=== PATIENT | male | born 1935 | race Caucasian/White ===

== ENCOUNTER → 2017-02-16 | Outpatient (CLI) | payer MEDICARE ==
[2017-02-16 09:07] LABS: ALT 27 U/L (21-72); AST 25 U/L (17-59); Cholesterol 114 mg/dL (<200); HDL Cholesterol 35 mg/dL (40-60); Triglycerides 132 mg/dL (<150)
== END | disposition home or self-care (01) ==
LOC: LABWHC1 08:25
PROVIDERS: ATTEND Internal Medicine Cardiovascular Disease
DX: E78.2 Mixed hyperlipidemia (principal)
CPT/HCPCS: 36415; 80061; 84450; 84460

== ENCOUNTER 2017-02-27 01:43 | Inpatient (IN) | payer MEDICARE, OTHER ==
[2017-02-27] MEDS ORDERED: NITROGLYCERIN OINT 1 INCH/GM PACKET TOPICAL STA (01:54)
--- NOTE | 2017-02-27 01:58 | ED ---
General Adult HPI - General Stated complaint: Chest Pain Time Seen by Provider: 02/27/17 01:45 Source: RN notes reviewed - History of Present Illness Initial comments: This is an 81-year-old male with past medical history significant for coronary artery disease. Patient states his stent placed. Patient comes in today complaining of left-sided chest pain which she states is similar to the chest pain he had prior to his heart attack. Patient states he also has high cholesterol. Patient states this pain started approximate one hour prior to arrival. Patient states there is no radiation the pain the pain is however constant. Patient denies any diaphoretic episodes. Patient denies any shortness of breath or difficulty breathing. Patient denies any nausea. Patient states he took aspirin at home but did not take any nitroglycerin. Patient states he also has an irregular heartbeat and he is on eliquis. Patient denies any abdominal pain patient denies any vomiting or diarrhea. Patient denies any recent fever chills or cough. Patient denies headache patient denies numbness weakness. Patient denies any lightheadedness dizziness or near syncopal episode. - Related Data Home Medications Medication Instructions Recorded Confirmed Apixaban [Eliquis] 2.5 mg PO DAILY 02/27/17 02/27/17 Gabapentin [Neurontin] 300 mg PO DAILY 02/27/17 02/27/17 Naproxen Sodium [Aleve] 220 mg PO DAILY 02/27/17 02/27/17 Simvastatin [Zocor] 20 mg PO HS 02/27/17 02/27/17 Allergies Allergy/AdvReac Type Severity Reaction Status Date / Time No Known Allergies Allergy Verified 02/27/17 02:01 Review of Systems ROS Statement: Those systems with pertinent positive or pertinent negative responses have been documented in the HPI. ROS Other: All systems not noted in ROS Statement are negative. General Exam - General Exam Comments Initial Comments: GENERAL: Patient is well-developed and well-nourished. Patient is nontoxic and well- hydrated and is in mild distress. ENT: Neck is soft and supple. No significant lymphadenopathy is noted. Oropharynx is clear. Moist mucous membranes. Neck has full range of motion without eliciting any pain. EYES: The sclera were anicteric and conjunctiva were pink and moist. Extraocular movements were intact and pupils were equal round and reactive to light. Eyelids were unremarkable. PULMONARY: Unlabored respirations. Good breath sounds bilaterally. No audible rales rhonchi or wheezing was noted. CARDIOVASCULAR: There is a regular rate and rhythm without any murmurs gallops or rubs. ABDOMEN: Soft and nontender with normal bowel sounds. No palpable organomegaly was noted. There is no palpable pulsatile mass. SKIN: Skin is clear with no lesions or rashes and otherwise unremarkable. NEUROLOGIC: Patient is alert and oriented x3. Cranial nerves II through XII are grossly intact. Motor and sensory are also intact. Normal speech, volume and content. Symmetrical smile. MUSCULOSKELETAL: Normal extremities with adequate strength and full range of motion. No lower extremity swelling or edema. No calf tenderness. LYMPHATICS: No significant lymphadenopathy is noted PSYCHIATRIC: Normal psychiatric evaluation. Course Vital Signs 02/27/17 01:45 Temperature 96.7 F L Pulse Rate 73 Respiratory 20 Rate Blood Pressure 211/97 O2 Sat by Pulse 96 Oximetry Medical Decision Making - Medical Decision Making EKG shows atrial fibrillation at 69 bpm QRS is 80 QT interval 372 QTC is 398. Patient's EKG shows no ST segment elevation or depression. Chest x-ray shows no acute abnormality. I went back into reevaluate the patient he was chest pain-free at this time. I spoke with Dr. Saurav Mg agreed to admit the patient. I wrote admitting orders I counseled cardiology. - Lab Data Result diagrams: 02/27/17 02:07 02/27/17 02:07 Lab Results 02/27/17 02/27/17 02/27/17 Range/Units 02:07 02:07 02:07 WBC 8.0 (3.8-10.6) k/uL RBC 4.63 (4.30-5.90) m/uL Hgb 13.9 (13.0-17.5) gm/dL Hct 42.8 (39.0-53.0) % MCV 92.5 (80.0-100.0) fL MCH 30.0 (25.0-35.0) pg MCHC 32.4 (31.0-37.0) g/dL RDW 13.6 (11.5-15.5) % Plt Count 191 (150-450) k/uL Neutrophils % 64 % Lymphocytes % 25 % Monocytes % 5 % Eosinophils % 3 % Basophils % 1 % Neutrophils # 5.1 (1.3-7.7) k/uL Lymphocytes # 2.0 (1.0-4.8) k/uL Monocytes # 0.4 (0-1.0) k/uL Eosinophils # 0.2 (0-0.7) k/uL Basophils # 0.1 (0-0.2) k/uL PT (9.0-12.0) sec INR (<1.1) APTT (22.0-30.0) sec Sodium 141 (137-145) mmol/L Potassium 4.1 (3.5-5.1) mmol/L Chloride 105 (98-107) mmol/L Carbon Dioxide 28 (22-30) mmol/L Anion Gap 8 mmol/L BUN 23 H (9-20) mg/dL Creatinine 1.00 (0.66-1.25) mg/dL Est GFR (MDRD) Af Amer >60 (>60 ml/min/1.73 sqM) Est GFR (MDRD) Non-Af >60 (>60 ml/min/1.73 sqM) Glucose 104 H (74-99) mg/dL Calcium 9.4 (8.4-10.2) mg/dL Magnesium 2.0 (1.6-2.3) mg/dL Total Bilirubin 0.4 (0.2-1.3) mg/dL AST 21 (17-59) U/L ALT 29 (21-72) U/L Alkaline Phosphatase 59 (38-126) U/L Total Creatine Kinase 90 (55-170) U/L CK-MB (CK-2) 1.3 (0.0-2.4) ng/mL CK-MB (CK-2) Rel Index 1.4 Troponin I <0.012 (0.000-0.034) ng/mL Total Protein 6.4 (6.3-8.2) g/dL Albumin 3.5 (3.5-5.0) g/dL 02/27/17 Range/Units 02:07 WBC (3.8-10.6) k/uL RBC (4.30-5.90) m/uL Hgb (13.0-17.5) gm/dL Hct (39.0-53.0) % MCV (80.0-100.0) fL MCH (25.0-35.0) pg MCHC (31.0-37.0) g/dL RDW (11.5-15.5) % Plt Count (150-450) k/uL Neutrophils % % Lymphocytes % % Monocytes % % Eosinophils % % Basophils % % Neutrophils # (1.3-7.7) k/uL Lymphocytes # (1.0-4.8) k/uL Monocytes # (0-1.0) k/uL Eosinophils # (0-0.7) k/uL Basophils # (0-0.2) k/uL PT 10.6 (9.0-12.0) sec INR 1.1 (<1.1) APTT 24.2 (22.0-30.0) sec Sodium (137-145) mmol/L Potassium (3.5-5.1) mmol/L Chloride (98-107) mmol/L Carbon Dioxide (22-30) mmol/L Anion Gap mmol/L BUN (9-20) mg/dL Creatinine (0.66-1.25) mg/dL Est GFR (MDRD) Af Amer (>60 ml/min/1.73 sqM) Est GFR (MDRD) Non-Af (>60 ml/min/1.73 sqM) Glucose (74-99) mg/dL Calcium (8.4-10.2) mg/dL Magnesium (1.6-2.3) mg/dL Total Bilirubin (0.2-1.3) mg/dL AST (17-59) U/L ALT (21-72) U/L Alkaline Phosphatase (38-126) U/L Total Creatine Kinase (55-170) U/L CK-MB (CK-2) (0.0-2.4) ng/mL CK-MB (CK-2) Rel Index Troponin I (0.000-0.034) ng/mL Total Protein (6.3-8.2) g/dL Albumin (3.5-5.0) g/dL Disposition Clinical Impression: Unstable angina pectoris Disposition: ADMITTED IP TO [facility] Time of Disposition: 03:19
[2017-02-27 02:37] LABS: INR 1.1 (<1.1); Partial Thromboplastin Time 24.2 sec (22.0-30.0); Prothrombin Time 10.6 sec (9.0-12.0)
[2017-02-27 02:39] LABS: ALT 29 U/L (21-72); AST 21 U/L (17-59); Alkaline Phosphatase 59 U/L (38-126); Anion Gap 8 mmol/L; Blood Urea Nitrogen 23 mg/dL (9-20); Calcium 9.4 mg/dL (8.4-10.2); Carbon Dioxide 28 mmol/L (22-30); Chloride 105 mmol/L (98-107); Glucose 104 mg/dL (74-99); Non-African American GFR(MDRD) >60 (>60 ml/min/1.73 sqM); Potassium 4.1 mmol/L (3.5-5.1); Sodium 141 mmol/L (137-145); Total Bilirubin 0.4 mg/dL (0.2-1.3); Total Protein 6.4 g/dL (6.3-8.2)
[2017-02-27 02:41] LABS: Basophils # (A) 0.1 k/uL (0-0.2); Basophils % (A) 1 %; CH 30.4; CHCM 33.1; Eosinophils # (A) 0.2 k/uL (0-0.7); Eosinophils % (A) 3 %; HCT 42.8 % (39.0-53.0); HDW 2.51; HGB 13.9 gm/dL (13.0-17.5); Luc # (Auto) 0.16; Luc % (Auto) 2; Lymphocytes % (A) 25 %; MCHC 32.4 g/dL (31.0-37.0); MCV 92.5 fL (80.0-100.0); Mean Platelet Volume 7.7; Monocytes # (A) 0.4 k/uL (0-1.0); Monocytes % (A) 5 %; Neutrophils # (A) 5.1 k/uL (1.3-7.7); Neutrophils % (A) 64 %; RBC 4.63 m/uL (4.30-5.90); RDW 13.6 % (11.5-15.5); WBC (Perox) 7.73
[2017-02-27 02:51] LABS: Creatine Kinase 90 U/L (55-170)
[2017-02-27 03:04] LABS: Creatine Kinase MB 1.3 ng/mL (0.0-2.4); Troponin I <0.012 ng/mL (0.000-0.034)
[2017-02-27] MEDS ORDERED: NITROGLYCERIN SL TABS 0.4 MG TAB SUBLINGUAL PRN (03:19)
--- NOTE | 2017-02-27 03:35 | XR ---
EXAM: XR Chest, 2 Views CLINICAL HISTORY: Chest Pain TECHNIQUE: Frontal and lateral views of the chest. COMPARISON: No relevant prior studies available. FINDINGS/IMPRESSION: Enlarged cardiac silhouette with central vascular congestion. Tortuous/ectatic thoracic aorta. If there is concern for dissection, correlate with CTA. Mild atelectasis vs infiltrate in lower lungs. No effusions. Critical Value Communications 02/27/17 03:40 Verify Receipt Verified receipt with ER Lab Animal Technologistchristoph Stovall who verified received by Dr. Ge on 02/27 03:39 (-04:00)
[2017-02-27 04:43] VITALS: BMI 36.2
[2017-02-27 08:10] LABS: Creatine Kinase MB 1.2 ng/mL (0.0-2.4); Troponin I 0.012 ng/mL (0.000-0.034)
[2017-02-27] MEDS ORDERED: APIXABAN 2.5 MG TABLET PO SCH (09:00)
[2017-02-27] MEDS ORDERED: ALPRAZolam 0.25 MG TAB PO PRN (09:15)
[2017-02-27] MEDS ORDERED: SODIUM CHLORIDE 0.9% 1,000 ML in EMPTY BAG 1 BAG IV ONE (09:15)
[2017-02-27] MEDS ORDERED: ALPRAZolam 0.5 MG TAB PO PRN (09:15)
--- NOTE | 2017-02-27 09:22 | P.CRDCN ---
History of Present Illness Consult date: 02/27/17 History of present illness: This is a 81-year-old gentleman with history of previous ischemic heart disease and myocardial infarction involving the inferior wall. Patient also has ischemic cardiomyopathy with an ejection fraction about 40%. He had a stress test in the August 2016 which at that time showed fixed defect in inferior wall without any reversible ischemia. Patient came to the hospital with complaints of chest pain which was similar to the pain he had when he had a heart attack. The pain was moaning and of the left breast area lasting about a half hour. Patient was given to the hospital by his . He was treated with nitro patch with relief of pain. Patient had mild pain this morning also. He claimed the pain was about 8 on a scale of 1-10. Nose is and nausea vomiting or sweating. His EKG did not reveal any acute changes. His and chronic atrial fibrillation. His cardiac enzymes are negative. Patient is on an eliquis. We discussed the options of doing a repeat stress test versus cardiac catheterization. Given his previous history and cardiomyopathy, after discussing with Dr. Starks, we decided to proceed with cardiac cath for definitive diagnosis. This is being scheduled for tomorrow Review of Systems REVIEW OF SYSTEMS: CONSTITUTIONAL:. Patient is doing well. No complaints of fever or chills EYES: Denies diplopia, blurring of vision EARS, NOSE, MOUTH, THROAT: Denies headaches, denies sore throat. CARDIOVASCULAR: As per HPI RESPIRATORY: Denies shortness of breath, denies cough. GASTROINTESTINAL: Denies change in appetite, denies abdominal pain, denies diarrhea GENITOURINARY: Denies hematuria, denies infections. MUSKULOSKELETAL: Denies pain, denies swelling. Denies any cramps or claudication INTEGUMENTARY: Denies rash, denies eczema. NEUROLOGICAL: Denies focal weakness, or visual disturbance. Denies any dizziness or syncope PSYCHIATRIC: Denies anxiety, denies depression. HEMATOLOGIC/LYMPHATIC: Denies any bleeding, denies enlarged lymph nodes. Past Medical History Past Medical History: Atrial Fibrillation, Hyperlipidemia, Hypertension, Myocardial Infarction ([place]) Additional Past Medical History / Comment(s): pt states he did have an episode at the [facility] where he had "something going on" with his heart, does not know what it was Last Myocardial Infarction Date:: 2011 History of Any Multi-Drug Resistant Organisms: None Reported Past Surgical History: Heart Catheterization With Stent, Hernia Repair, Orthopedic Surgery Additional Past Surgical History / Comment(s): left knee, left ankle, right shoulder, pt thinks 1 or 2 stents not sure in what vessel Past Anesthesia/Blood Transfusion Reactions: No Reported Reaction Date of Last Stent Placement:: 2011 Past Psychological History: No Psychological Hx Reported Smoking Status: Never smoker Past Alcohol Use History: Occasional Past Drug Use History: None Reported - Past Family History Father Family Medical History: Cancer Medications and Allergies Home Medications Medication Instructions Recorded Confirmed Type Apixaban [Eliquis] 2.5 mg PO DAILY 02/27/17 02/27/17 History Aspirin EC [Ecotrin Low Dose] 81 mg PO DAILY 02/27/17 02/27/17 History Gabapentin [Neurontin] 300 mg PO DAILY 02/27/17 02/27/17 History Multivitamin [Men's Multi-Vitamin] 1 tab PO DAILY 02/27/17 02/27/17 History Naproxen Sodium [Aleve] 220 mg PO DAILY 02/27/17 02/27/17 History Simvastatin [Zocor] 20 mg PO HS 02/27/17 02/27/17 History Allergies Allergy/AdvReac Type Severity Reaction Status Date / Time No Known Allergies Allergy Verified 02/27/17 07:56 Physical Exam Vitals: Vital Signs Temp Pulse Pulse Resp BP Pulse Ox 02/27/17 08:00 16 02/27/17 07:23 97.9 F 51 L 16 122/75 98 02/27/17 04:00 97.7 F 63 16 166/82 95 Intake and Output 02/26/17 02/27/17 02/27/17 22:59 06:59 14:59 Other: Voiding Method Toilet Toilet # Voids 2 Weight 117.934 kg GENERAL EXAM: Patient is alert and oriented and doesn't appear to be in any acute distress HEENT: Normocephalic. Normal reaction of pupils, equal size, normal range of extraocular motion. No erythema or exudates in the throat. NECK: No masses, no nuchal rigidity. CHEST: No chest wall deformity. LUNGS: Equal air entry with no crackles or wheeze. HEART: Irregular heart sounds ABDOMEN: No hepatosplenomegaly, normal bowel sounds, no guarding or rigidity. SKIN: No rashes CENTRAL NERVOUS SYSTEM: No focal deficits. EXTREMITIES: No cyanosis, clubbing or edema. Results 02/27/17 02:07 02/27/17 02:07 Cardiac Enzymes 02/27/17 Range/Units 06:53 CK-MB (CK-2) 1.2 (0.0-2.4) ng/mL Troponin I 0.012 (0.000-0.034) ng/mL Current Medications Generic Name Dose Route Start Last Admin Trade Name Freq PRN Reason Stop Dose Admin Aspirin 81 mg 02/27/17 09:00 Aspirin PO DAILY [facility] Atorvastatin Calcium 10 mg 02/27/17 21:00 Lipitor PO HS JANNETH Gabapentin 300 mg 02/27/17 09:00 Neurontin PO DAILY [facility] Multivitamins 1 each 02/27/17 09:00 Theragran PO DAILY [facility] Nitroglycerin 0.4 mg 02/27/17 03:19 Nitrostat SUBLINGUAL Q5M PRN Chest Pain Intake and Output 02/26/17 02/27/17 02/27/17 22:59 06:59 14:59 Other: Voiding Method Toilet Toilet # Voids 2 Weight 117.934 kg EKG Interpretations (text) Atrial fibrillation with controlled ventricular response Assessment and Plan (1) Unstable angina pectoris Status: Acute (2) Old inferior wall myocardial infarction Status: Acute (3) Ischemic cardiomyopathy Status: Acute Plan: We will hold his anticoagulation therapy. Patient is being scheduled for cardiac cath tomorrow with Dr. Starks. We'll obtain an echocardiogram. Further recommendations depend upon clinical course.
[2017-02-27] MEDS: MULTIVITAMINS, THERA 1 EACH TAB PO SCH (09:33)
[2017-02-27] MEDS: ASPIRIN 81 MG CHEW PO SCH (09:33)
[2017-02-27] MEDS: GABAPENTIN 300 MG CAP PO SCH (09:33)
[2017-02-27] MEDS: ACETAMINOPHEN TAB 500 MG TAB PO PRN (14:43)
[2017-02-27 15:31] LABS: Creatine Kinase 66 U/L (55-170)
[2017-02-27 15:39] LABS: Troponin I <0.012 ng/mL (0.000-0.034)
[2017-02-27] MEDS: ATORVASTATIN 10 MG TAB PO SCH (20:14)
[2017-02-28] MEDS: ACETAMINOPHEN TAB 500 MG TAB PO PRN (00:23)
[2017-02-28 02:36] LABS: Cholesterol 112 mg/dL (<200); HDL Cholesterol 31 mg/dL (40-60); Triglycerides 139 mg/dL (<150)
[2017-02-28] MEDS: ASPIRIN 81 MG CHEW PO SCH (06:33)
[2017-02-28] MEDS: ATORVASTATIN 10 MG TAB PO SCH (06:33)
[2017-02-28] MEDS: GABAPENTIN 300 MG CAP PO SCH (06:34)
[2017-02-28 07:02] LABS: Glucose,Whole Blood 115 mg/dL (75-99)
[2017-02-28] MEDS ORDERED: ASPIRIN 325 MG TAB PO SCH (09:00)
--- NOTE | 2017-02-28 10:50 | HP ---
DATE OF ADMISSION: CHIEF COMPLAINT: Chest pain. HISTORY OF PRESENT ILLNESS: This gentleman presents to the emergency room with complaints of pain for about 5 hours duration. The pain was intermittently. The pain would last about an hour or so then we would get some gradual relief and the pain would recur. The patient's pain is on the left precordial area, nonradiating, not associated with any shortness of breath, cough, congestion, fever, chills, nausea, vomiting or heartburn. The patient feels this pain was similar to the one he had when he had his heart attack. The patient during the day had been working on his garden bent over. The patient prior to coming to the hospital had taken an aspirin without much relief. He did not take any other medications. Patient's symptoms gradually resolved in the emergency room. The patient's EKG did not reveal any acute changes. It does show atrial fibrillation, that is chronic. The patient's cardiac enzymes were negative. The patient is admitted to the hospital for further evaluation. Chest x-ray suggested possible atelectasis cannot rule out infiltrate or CHF. The patient clinically has no symptoms of CHF or any pneumonia. It did show a tortuous ectatic thoracic aorta. Past medical history is significant for obesity, coronary artery disease, hypertension, degenerative arthritis, history of BPH. No history of any lung disease, liver disease, kidney disease, ulcers, TB, hepatitis. No history of rheumatic fever, myocardial infarction, CVA. PAST SURGICAL HISTORY: Significant for knee arthroplasty. PERSONAL HISTORY: Nonsmoker. Alcohol none. ALLERGIES: None known. Medications at home include: 1. Zocor 20 mg daily. 2. Naproxen p.r.n. 3. Gabapentin 300 mg daily at bedtime. 4. Aspirin 81 mg daily. 5. Eliquis 2.5 mg daily. 6. Multivitamin daily. SOCIAL HISTORY: Patient is and lives with her spouse. FAMILY MEDICAL HISTORY: Noncontributory for cardiac. Father did have a malignancy, type unknown. REVIEW OF SYSTEMS: NEURO: Denies any headaches, dizziness. No double vision, blurred vision. PSYCH: No anxiety or depression. CARDIAC: Denies chest pain at present. Present on admission chest pain. No shortness of breath, cough, hemoptysis. GI: No nausea, vomiting, abdominal pain, diarrhea, constipation, hematochezia, or melena. : No symptoms of dysuria, hematuria, urgency, frequency. EXTREMITIES: No pain or edema. CONSTITUTIONAL: No fever or chills. PHYSICAL EXAMINATION: Pleasant gentleman, moderately obese in no distress. Vital signs reveal temperature 97.9, pulse 51, respirations 16, blood pressure 122/75, pulse ox of 98% on room air. HEENT: Normocephalic. Neck no JVD. Pupils that are reactive. Oral cavity is moist. NECK: Supple. No JVD. No carotid bruits. CHEST EXAMINATION: Clear to auscultation and percussion. CARDIAC: Normal S1 and S2. No gallops, murmurs, rubs. Irregular rhythm. ABDOMEN: Soft. Bowel sounds present. Abdomen protuberant. Extremities reveal no edema. No tenderness. Good pulses both upper and lower extremities. NEUROLOGIC: Awake, alert, oriented x3 with well coordinated movements. Laboratory assessment is an EKG which reveals chronic atrial fibrillation, poor R wave progression. Cardiac enzymes are negative x3. Patient's CBC is normal. Renal functions normal. Hepatic function is normal. Chest x-ray as mentioned above. ASSESSMENT: 1. Chest pain, atypical. 2. Known history of coronary artery disease. 3. Hypertension. 4. Obesity. PLAN: The patient at present is stable. Continue present medical regimen. The patient has been evaluated by Cardiology who felt that the patient should have cardiac catheterization. The patient will be scheduled according to their recommendations.
[2017-02-28] MEDS ORDERED: LIDOCAINE 2% INJ 20 MG/ML (20 ML MDV) ONE (12:12)
[2017-02-28] MEDS ORDERED: MIDAZOLAM 2 MG/2 ML VIAL ONE (12:14)
[2017-02-28] MEDS ORDERED: diphenhydrAMINE 50 MG/ML 1 ML VIAL ONE (12:14)
[2017-02-28] MEDS ORDERED: MIDAZOLAM 2 MG/2 ML VIAL IV ONE (12:15)
[2017-02-28] MEDS ORDERED: diphenhydrAMINE 50 MG/ML 1 ML VIAL IVP ONE (12:15)
[2017-02-28] MEDS ORDERED: LIDOCAINE 2% INJ 20 MG/ML SQ ONE (12:20)
[2017-02-28] MEDS ORDERED: IV FLUID CONTINUATION 1,000 ML IV ONE (12:22)
[2017-02-28] MEDS ORDERED: NITROGLYCERIN OINT 4 INCH/4 GM TUBE TOPICAL ONE (12:34)
[2017-02-28] MEDS ORDERED: ENALAPRILAT 1.25 MG/ML 1 ML VIAL IVP ONE (12:34)
[2017-02-28] MEDS ORDERED: IOHEXOL 350 MG/ML 125ML BOTTLE INJ ONE (12:41)
[2017-02-28] MEDS ORDERED: RX INFO: IV CONTRAST WAS GIVEN 1 EACH MISC MISCELLANE PRN (12:41)
--- NOTE | 2017-02-28 13:10 | CC ---
DATE OF SERVICE: INDICATION: Unstable angina in a patient with known coronary artery disease, status post prior angioplasty of proximal LAD. PROCEDURE NOTE: After obtaining informed consent, left heart catheterization and coronary angiogram and the femoral angiogram was performed via the right femoral artery using standard Maribell catheters. Patient tolerated the procedure well without any obvious immediate complications. A femoral angiogram was performed and Angio-Seal was deployed for hemostasis. FINDINGS: 1. HEMODYNAMICS: Left ventricular end-diastolic pressure is 16 mm. There is no significant gradient across the aortic valve. 2. LEFT VENTRICULOGRAM: Left ventriculogram is not performed. 3. ANGIOGRAPHIC DATA: LEFT MAIN CORONARY ARTERY: Left main coronary artery is a normal size vessel and is free of stenosis. Divides into left anterior descending coronary artery and circumflex coronary artery. Circumflex coronary artery and its branches are free of significant stenosis. LAD was stented in the proximal segment. There is a long area that was stented. There is mild in-stent restenosis, but there are no focal hemodynamically significant lesions. RIGHT CORONARY ARTERY: Right coronary artery is a large dominant vessel that shows a mild atherosclerotic plaque in the distal part. CONCLUSIONS: Patent stent within the proximal left anterior descending coronary artery. PLAN: Patient's chest discomfort is probably noncardiac in origin and the management is going to be with continued medical therapy. Blood pressures are poorly controlled. I am going to add lisinopril 10 mg daily and Norvasc 10 mg daily. Patient was on a Eliquis for atrial fibrillation. This will be resumed tonight.
[2017-02-28] MEDS: amLODIPine 10 MG TAB PO SCH (13:18)
[2017-02-28] MEDS: KETOROLAC 30 MG/ML 1 ML VIAL IVP SCH ×3 (13:18→17:28)
[2017-02-28] MEDS: LISINOPRIL 10 MG TAB PO SCH (13:18)
[2017-02-28] MEDS: MULTIVITAMINS, THERA 1 EACH TAB PO SCH (14:00)
[2017-02-28] MEDS: SODIUM CHLORIDE 0.9% 1,000 ML IV SCH (17:32)
[2017-02-28] MEDS: APIXABAN 2.5 MG TABLET PO SCH (19:46)
--- NOTE | 2017-02-28 22:53 | PN ---
CHIEF COMPLAINT: Re-evaluation. HISTORY OF PRESENT ILLNESS: This gentleman was admitted to the hospital with complaints of chest pain. The patient during the night yesterday had constant pain in the left side of his chest. The patient has some exacerbation of pain with movements. No associated nausea, vomiting, shortness of breath. Patient has been seen by Cardiology and actually has been scheduled to undergo cardiac catheterization today. REVIEW OF SYSTEMS: NEURO: Denies any headaches, dizziness. PSYCH: Some anxiety. CARDIAC: Chest pain, atypical. No associated shortness of breath, cough, hemoptysis. GI: No nausea, vomiting, abdominal pain, diarrhea. : No symptoms of dysuria, hematuria. EXTREMITIES: No pain or edema. CONSTITUTIONAL: No fever or chills. PHYSICAL EXAMINATION: Pleasant gentleman in no distress. VITAL SIGNS: Temperature 97.7, pulse 63, respirations 16, blood pressure 143/92, pulse ox 93% on room air. HEENT: Normocephalic. NECK: Supple. No JVD. Chest is clear to auscultation. CARDIAC: Normal S1, S2 with no gallops, murmurs. Irregular rhythm. ABDOMEN: Soft, protuberant. Bowel sounds active. EXTREMITIES: No edema. No tenderness. NEUROLOGIC: Awake, alert, oriented with well-coordinated movements. Skin reveals no rash. ASSESSMENT: 1. Chest pain, atypical. 2. Known coronary artery disease. 3. Chronic atrial fibrillation. 4. Obesity. 5. Hypertension. PLAN: The patient is stable. Continue present medical regimen. Patient's condition discussed with the patient. Will give the patient some Toradol for pain. The patient's pain might very well be musculoskeletal. The patient's cardiac catheterization was done and revealed open stents; no evidence of any significant disease requiring intervention. Patient to continue medical therapy for coronary atherosclerosis. The patient will be continued on present medical regimen. Potential discharge home. Patient's condition was discussed with the patient and his .
[2017-03-01] MEDS: KETOROLAC 30 MG/ML 1 ML VIAL IVP SCH ×2 (00:11→05:54)
[2017-03-01] MEDS: SODIUM CHLORIDE 0.9% 1,000 ML IV SCH (00:12)
[2017-03-01 07:30] VITALS: BP 160/83; PULSE 69; RESP 17; TEMP 98.3
[2017-03-01] MEDS: MULTIVITAMINS, THERA 1 EACH TAB PO SCH (08:19)
[2017-03-01] MEDS: ASPIRIN 81 MG CHEW PO SCH (08:19)
[2017-03-01] MEDS: GABAPENTIN 300 MG CAP PO SCH (08:19)
[2017-03-01] MEDS: amLODIPine 10 MG TAB PO SCH (08:19)
[2017-03-01] MEDS: LISINOPRIL 10 MG TAB PO SCH (08:19)
[2017-03-01] MEDS: APIXABAN 2.5 MG TABLET PO SCH (08:19)
--- NOTE | 2017-03-07 19:02 | P.DS ---
Providers Date of admission: 02/28/17 16:18 Attending physician: Curt Mg Primary care physician: Curt Mg Hospital Course: Hospital course: This 81-year-old gentleman was admitted to the hospital with chest pain. He has underlying history of coronary artery disease with a previous stent. His moderate obesity hypertension and hyperlipidemia. Patient' s symptoms were atypical. He was evaluated by the sap developer who felt the patient had some atypical features and some features which may indicate he had progression of his coronary atherosclerosis. He underwent a cardiac catheterization after noted to have negative troponins. Cardiac catheterization revealed the previous site of stent was clear some degree of atherosclerosis in other vessels. No critical blockage. Patient recommended medical therapy which would include weight loss, blood pressure control, hyperlipidemia treatment. And continued aspirin. Patient's prognosis guarded patient's condition discussed with with patient prior to discharge. It is felt the patient's chest pain was probably myofascial pain due to working with bending over. Diagnosis to include 1. Atypical chest pain 2. Known coronary atherosclerosis with a previous stent. 3. Hypertension 4. Hyperlipidemia on medical therapy 5. Obesity 6. Atrial fibrillation, chronic, rate controlled. 7. Anticoagulated status Plan - Discharge Summary New Discharge Prescriptions: Lisinopril [Zestril] 10 mg PO DAILY #90 tab Nitroglycerin Sl Tabs [Nitrostat] 0.4 mg SUBLINGUAL Q5M PRN #25 tab PRN Reason: Chest Pain Discharge Medication List Apixaban [Eliquis] 2.5 mg PO DAILY 02/27/17 [History] Aspirin EC [Ecotrin Low Dose] 81 mg PO DAILY 02/27/17 [History] Gabapentin [Neurontin] 300 mg PO DAILY 02/27/17 [History] Multivitamin [Men's Multi-Vitamin] 1 tab PO DAILY 02/27/17 [History] Simvastatin [Zocor] 20 mg PO HS 02/27/17 [History] Acetaminophen Tab [Tylenol] 1,000 mg PO Q6HR PRN #0 tab 03/01/17 [Rx] Lisinopril [Zestril] 10 mg PO DAILY #90 tab 03/01/17 [Rx] Nitroglycerin Sl Tabs [Nitrostat] 0.4 mg SUBLINGUAL Q5M PRN #25 tab 03/01/17 [Rx ] Follow up Appointment(s)/Referral(s): Curt Mg MD [Primary Care Provider] - 1-2 days Juan Starks MD [STAFF PHYSICIAN] - 03/08/17 10:15 am Patient Instructions/Handouts: Heart Catheterization (GEN) Discharge Disposition: HOME SELF-CARE
== END 2017-03-01 10:31 | disposition home or self-care (01) | DRG 287 ==
LOC: EC 01:43 → 3OBS 03:19 → OBSVTOIN 02-28 16:18
PROVIDERS: ADMIT Internal Medicine; ATTEND Internal Medicine
PROC: B2111ZZ Fluoroscopy of Multiple Coronary Arteries using Low Osmolar Contrast (ICD-10-PCS; 2017-02-28)
PROC: B41F1ZZ Fluoroscopy of Right Lower Extremity Arteries using Low Osmolar Contrast (ICD-10-PCS; 2017-02-28)
PROC: 4A023N7 Measurement of Cardiac Sampling and Pressure, Left Heart, Percutaneous Approach (ICD-10-PCS; principal; 2017-02-28 12:00)
DX: R07.89 Other chest pain (principal); I48.2 Chronic atrial fibrillation; I25.5 Ischemic cardiomyopathy; I25.10 Atherosclerotic heart disease of native coronary artery without angina pectoris; M79.1 Myalgia; E66.9 Obesity, unspecified; I10 Essential (primary) hypertension; E78.5 Hyperlipidemia, unspecified; I25.2 Old myocardial infarction; N40.0 Benign prostatic hyperplasia without lower urinary tract symptoms; M19.90 Unspecified osteoarthritis, unspecified site; Z95.5 Presence of coronary angioplasty implant and graft; Z79.01 Long term (current) use of anticoagulants; Z79.82 Long term (current) use of aspirin; Z79.899 Other long term (current) drug therapy; Z68.36 Body mass index [BMI] 36.0-36.9, adult
CPT/HCPCS: 36415; 71020; 80053; 80061; 82550; 82553; 83735; 84484; 85025; 85610; 85730; 93005; 93458; 99285

== ENCOUNTER 2018-03-02 13:11 | Emergency (ER) | payer MEDICARE, OTHER ==
[2018-03-02 13:18] VITALS: TEMP 97.3
[2018-03-02] MEDS ORDERED: MECLIZINE 12.5 MG TAB PO STA (13:33)
[2018-03-02] MEDS ORDERED: SODIUM CHLORIDE 0.9% 500 ML IV STA (13:33)
[2018-03-02] MEDS ORDERED: SODIUM CHLORIDE 0.9% 1,000 ML IV STA (13:33)
--- NOTE | 2018-03-02 13:38 | ED ---
Dizziness HPI - General Chief Complaint: Dizziness Stated Complaint: weakness Time Seen by Provider: 03/02/18 13:21 Source: patient, family, RN notes reviewed Mode of arrival: wheelchair Limitations: no limitations - History of Present Illness Initial Comments: This 82-year-old male who states she's had 3 days of intermittent episodes of dizziness. He states it can happen with upright positioning while driving. He states he's had a cold sometime last several weeks currently no earache sore throat rhinorrhea cough or phlegm production no headache loss of function to his upper or lower extremities. No palpitations. No other modifying factors. MD Complaint: dizziness, lightheadedness - Related Data Home Medications Medication Instructions Recorded Confirmed Apixaban [Eliquis] 2.5 mg PO BID 02/27/17 03/02/18 Aspirin EC [Ecotrin Low Dose] 81 mg PO DAILY 02/27/17 03/02/18 Gabapentin [Neurontin] 300 mg PO BID 02/27/17 03/02/18 Multivitamin [Men's Multi-Vitamin] 1 tab PO DAILY 02/27/17 03/02/18 Furosemide [Lasix] 20 mg PO DAILY PRN 03/02/18 03/02/18 Losartan [Cozaar] 100 mg PO DAILY 03/02/18 03/02/18 Simvastatin [Zocor] 40 mg PO HS 03/02/18 03/02/18 Previous Rx's Medication Instructions Recorded Nitroglycerin Sl Tabs [Nitrostat] 0.4 mg SUBLINGUAL Q5M PRN #25 tab 03/01/17 Meclizine [Antivert] 25 mg PO TID #20 tab 03/02/18 amLODIPine [Norvasc] 5 mg PO DAILY #14 tab 03/02/18 Allergies Allergy/AdvReac Type Severity Reaction Status Date / Time papaverine [From Pavabid] Allergy Unknown Verified 03/02/18 13:19 Review of Systems ROS Statement: Those systems with pertinent positive or pertinent negative responses have been documented in the HPI. ROS Other: All systems not noted in ROS Statement are negative. Past Medical History Past Medical History: Atrial Fibrillation, Hyperlipidemia, Hypertension, Myocardial Infarction ([place]) Additional Past Medical History / Comment(s): pt states he did have an episode at the [facility] where he had "something going on" with his heart, does not know what it was Last Myocardial Infarction Date:: 2011 History of Any Multi-Drug Resistant Organisms: None Reported Past Surgical History: Heart Catheterization With Stent, Hernia Repair, Orthopedic Surgery Additional Past Surgical History / Comment(s): left knee, left ankle, right shoulder, pt thinks 1 or 2 stents not sure in what vessel Past Anesthesia/Blood Transfusion Reactions: No Reported Reaction Date of Last Stent Placement:: 2011 Past Psychological History: No Psychological Hx Reported Smoking Status: Never smoker Past Alcohol Use History: Occasional Past Drug Use History: None Reported - Past Family History Father Family Medical History: Cancer General Exam - General Exam Comments Initial Comments: This is a well-developed well-nourished awake alert oriented times 3 male Limitations: no limitations General appearance: alert, in no apparent distress Head exam: Present: atraumatic, normocephalic, normal inspection Eye exam: Present: normal appearance, PERRL, EOMI. Absent: scleral icterus, conjunctival injection, periorbital swelling ENT exam: Present: normal exam, mucous membranes moist Neck exam: Present: normal inspection. Absent: tenderness, meningismus, lymphadenopathy Respiratory exam: Present: normal lung sounds bilaterally. Absent: respiratory distress, wheezes, rales, rhonchi, stridor Cardiovascular Exam: Present: irregular rhythm, other (Occasional extrasystoles) . Absent: systolic murmur, diastolic murmur, rubs, gallop, clicks GI/Abdominal exam: Present: soft, normal bowel sounds. Absent: distended, tenderness, guarding, rebound, rigid Extremities exam: Present: normal inspection, full ROM, normal capillary refill. Absent: tenderness, pedal edema, joint swelling, calf tenderness Back exam: Present: normal inspection Neurological exam: Present: alert, oriented X3, CN II-XII intact Psychiatric exam: Present: normal affect, normal mood Skin exam: Present: warm, dry, intact, normal color. Absent: rash Course Vital Signs 03/02/18 03/02/18 13:14 15:10 Temperature 97.3 F L Pulse Rate 70 68 Respiratory 20 16 Rate Blood Pressure 184/90 193/116 O2 Sat by Pulse 95 99 Oximetry EKG Findings - EKG Results: EKG: interpreted by ERMD (Atrial fibrillation with PVCs rate 65 QRS 86 QT since QTC of 422/438 with exodeviation poor R-wave progression.) Medical Decision Making - Medical Decision Making The patient was reevaluated several occasions he had no further dizziness after Antivert was administered was noticed blood pressure was somewhat labile is on no medication at this time to be started on Norvasc is a follow-up with his outpatient clinic and return when necessary I did recommend also he start increasing his oral fluid consumption. At the time of discharge patient is asymptomatic - Lab Data Result diagrams: 03/02/18 13:44 03/02/18 13:44 Lab Results 03/02/18 03/02/18 03/02/18 Range/Units 13:44 13:44 13:44 WBC 7.9 (3.8-10.6) k/uL RBC 5.10 (4.30-5.90) m/uL Hgb 14.9 (13.0-17.5) gm/dL Hct 45.8 (39.0-53.0) % MCV 89.9 (80.0-100.0) fL MCH 29.2 (25.0-35.0) pg MCHC 32.4 (31.0-37.0) g/dL RDW 13.6 (11.5-15.5) % Plt Count 216 (150-450) k/uL Neutrophils % 70 % Lymphocytes % 22 % Monocytes % 4 % Eosinophils % 2 % Basophils % 0 % Neutrophils # 5.5 (1.3-7.7) k/uL Lymphocytes # 1.8 (1.0-4.8) k/uL Monocytes # 0.3 (0-1.0) k/uL Eosinophils # 0.2 (0-0.7) k/uL Basophils # 0.0 (0-0.2) k/uL Sodium 143 (137-145) mmol/L Potassium 4.6 (3.5-5.1) mmol/L Chloride 104 (98-107) mmol/L Carbon Dioxide 28 (22-30) mmol/L Anion Gap 11 mmol/L BUN 24 H (9-20) mg/dL Creatinine 1.00 (0.66-1.25) mg/dL Est GFR (CKD-EPI)AfAm 81 (>60 ml/min/1.73 sqM) Est GFR (CKD-EPI)NonAf 70 (>60 ml/min/1.73 sqM) Glucose 96 (74-99) mg/dL Calcium 9.6 (8.4-10.2) mg/dL Magnesium 1.9 (1.6-2.3) mg/dL Total Bilirubin 0.3 (0.2-1.3) mg/dL AST 21 (17-59) U/L ALT 21 (21-72) U/L Alkaline Phosphatase 56 (38-126) U/L Total Creatine Kinase 73 (55-170) U/L CK-MB (CK-2) 1.5 (0.0-2.4) ng/mL CK-MB (CK-2) Rel Index 2.1 Troponin I <0.012 (0.000-0.034) ng/mL Total Protein 6.9 (6.3-8.2) g/dL Albumin 4.0 (3.5-5.0) g/dL TSH 3.330 (0.465-4.680) mIU/L - Radiology Data Radiology results: report reviewed (Imaging shows no definite acute findings.), image reviewed Disposition Clinical Impression: Benign positional vertigo, Dehydration, Hypertension Disposition: HOME SELF-CARE Condition: Good Instructions: Benign Paroxysmal Positional Vertigo (ED), Dehydration (ED), Hypotension (ED) Prescriptions: amLODIPine [Norvasc] 5 mg PO DAILY #14 tab Meclizine [Antivert] 25 mg PO TID #20 tab Is patient prescribed a controlled substance at d/c from ED?: No Referrals: [facility],Clinic [Primary Care Provider] - 1-2 days
[2018-03-02 13:57] LABS: Basophils % (A) 0 %; Eosinophils # (A) 0.2 k/uL (0-0.7); Eosinophils % (A) 2 %; HCT 45.8 % (39.0-53.0); HGB 14.9 gm/dL (13.0-17.5); Lymphocytes # (A) 1.8 k/uL (1.0-4.8); Lymphocytes % (A) 22 %; MCH 29.2 pg (25.0-35.0); MCHC 32.4 g/dL (31.0-37.0); MCV 89.9 fL (80.0-100.0); Mean Platelet Volume 8.1; Monocytes # (A) 0.3 k/uL (0-1.0); Monocytes % (A) 4 %; Neutrophils # (A) 5.5 k/uL (1.3-7.7); Neutrophils % (A) 70 %; Platelet Count 216 k/uL (150-450); RDW 13.6 % (11.5-15.5); WBC 7.9 k/uL (3.8-10.6)
[2018-03-02 14:09] LABS: Calcium 9.6 mg/dL (8.4-10.2); Magnesium 1.9 mg/dL (1.6-2.3); Potassium 4.6 mmol/L (3.5-5.1); Total Bilirubin 0.3 mg/dL (0.2-1.3); Total Protein 6.9 g/dL (6.3-8.2)
[2018-03-02 14:20] LABS: Creatine Kinase 73 U/L (55-170)
--- NOTE | 2018-03-02 14:24 | CT ---
EXAMINATION TYPE: CT brain wo con DATE OF EXAM: 03/02/2018 COMPARISON: 10/06/2009 HISTORY: 82-year-old male with pain and complains of high blood pressure. TECHNIQUE: Examination was done in axial plane without intravenous contrast. Coronal and sagittal r econstructions performed. CT DLP: 1079 mGycm Automated exposure control for dose reduction was used. FINDINGS: There is no evidence of acute intracranial hemorrhage, acute ischemic changes, mass, mass-effect, or extra-axial fluid collection. There is no effacement of cerebral sulci or basal subarachnoid cister ns. There is no hydrocephalus. There is no midline shift. Yoder-white matter distinction is preserv ed. Partially empty sella. Moderate patchy white matter hypodensities in both cerebral hemispheres. Paranasal sinuses and mastoid air cells well pneumatized. Visualized orbits and globes are intact. IMPRESSION: No acute intracranial abnormality seen. Moderate patchy changes of chronic small vessel ischemic dise ase.
--- NOTE | 2018-03-02 14:25 | XR ---
EXAMINATION TYPE: XR chest 2V DATE OF EXAM: 03/02/2018 COMPARISON: 02/27/2017 HISTORY: 82-year-old male with cough TECHNIQUE: Frontal and lateral views FINDINGS: Exam limited by patient body habitus and AP portable technique. The left base is underpenetrated and not optimally assessed. Heart appears borderline enlarged. Mild elongation of the thoracic aorta. Pul monary vasculature within normal limits. When correlating with the lateral view, no consolidation or pleural effusion seen. IMPRESSION: Limited portable exam. Left base underpenetrated and not well assessed. The heart is borderline enla rged. No definite acute process.
[2018-03-02 14:33] LABS: Creatine Kinase MB 1.5 ng/mL (0.0-2.4); Troponin I <0.012 ng/mL (0.000-0.034)
[2018-03-02 15:12] VITALS: PULSE 68; RESP 16
[2018-03-02] MEDS ORDERED: amLODIPine 5 MG TAB PO STA (15:12)
[2018-03-02] MEDS ORDERED: hydrALAZINE HCL 20 MG/ML 1 ML VIAL IVP STA (16:11)
[2018-03-02 16:31] VITALS: BP 177/100
== END 2018-03-02 16:25 | disposition home or self-care (01) ==
LOC: EC 13:11
DX: E86.0 Dehydration (principal); I10 Essential (primary) hypertension; H81.10 Benign paroxysmal vertigo, unspecified ear; I48.91 Unspecified atrial fibrillation; E78.5 Hyperlipidemia, unspecified; I25.2 Old myocardial infarction; Z88.8 Allergy status to other drugs, medicaments and biological substances; Z79.02 Long term (current) use of antithrombotics/antiplatelets; Z79.82 Long term (current) use of aspirin; Z79.899 Other long term (current) drug therapy
CPT/HCPCS: 99284; 96374; 96361 ×2; 36415; 93005; 80053; 84443; 82550; 82553; 83735; 84484; 85025; 71046; 70450; J0360

== ENCOUNTER → 2018-11-23 | Outpatient (CLI) | payer OTHER ==
[2018-11-23 17:03] LABS: LDL Cholesterol,Calculated 66.4 mg/dL (0.0-131.0); VLDL Calculation 31.6 mg/dL (5.00-40.00)
== END | disposition home or self-care (01) ==
LOC: LABWHC1 08:59
PROVIDERS: ATTEND Internal Medicine Cardiovascular Disease
DX: E78.2 Mixed hyperlipidemia (principal)
CPT/HCPCS: 36415; 80061; 84450; 84460

== ENCOUNTER → 2019-05-28 | Outpatient (CLI) | payer OTHER ==
--- NOTE | 2019-05-28 16:01 | MR ---
EXAMINATION TYPE: MR cervical spine wo con DATE OF EXAM: 05/28/2019 COMPARISON: None HISTORY: Neck pain x 2 mos, BUE weakness TECHNIQUE: Multiplanar, multisequence images of the cervical spine were acquired. FINDINGS: There is a T2 hyperintense and T1 hyperintense vertebral body hemangioma at T1. Multilevel small anterior osteophytes are seen. Multilevel disc desiccation is also noted. Cervical spinal cord signal is within normal limits. Vertebral body heights and alignment are maintained. C2-C3: There is a left paracentral disc osteophyte complex. No spinal canal stenosis nor neural tayler inal narrowing. C3-C4: Uncovertebral hypertrophy and facet arthropathy creating moderate left and severe right neural foraminal narrowing. Broad-based disc bulge minimally narrows the ventral subarachnoid space without spinal canal stenosis. C4-C5: There is a small central disc herniation, uncovertebral hypertrophy, and facet arthropathy cre ating moderate bilateral neural foraminal narrowing. This slightly narrows the ventral subarachnoid s pace without significant spinal canal stenosis. C5-C6: There is a broad-based disc bulge and uncovertebral hypertrophy as well as facet arthropathy c reating severe right and moderate to severe left neural foraminal narrowing and mild spinal canal bhavin nosis. C6-C7: There is a small central disc osteophyte complex and uncovertebral hypertrophy creating mild b ilateral neural foraminal narrowing without spinal canal stenosis. C7-T1: Disc desiccation without spinal canal stenosis nor neural foraminal narrowing. IMPRESSION: 1. Small central disc herniation at C4-C5 without spinal canal stenosis. 2. Broad-based disc bulge at C5-C6 contributing to mild spinal canal stenosis. 3. Multilevel degenerative disc disease of the cervical spine creating variable degrees of neural for aminal narrowing most severe on the right at C3-C4 and C5-C6 as well as on the left at C5-C6. Detail at each level as discussed above.
== END | disposition home or self-care (01) ==
LOC: RADMRIMAIN 14:37
PROVIDERS: ATTEND Physician Assistant Medical
DX: M48.02 Spinal stenosis, cervical region (principal); M50.221 Other cervical disc displacement at C4-C5 level; M50.30 Other cervical disc degeneration, unspecified cervical region
CPT/HCPCS: 72141

== ENCOUNTER 2019-10-06 14:51 | Emergency (ER) | payer OTHER, MEDICARE ==
[2019-10-06 14:59] VITALS: TEMP 98.6
--- NOTE | 2019-10-06 15:29 | ED ---
General Adult HPI - General Chief complaint: Recheck/Abnormal Lab/Rx Stated complaint: Possible blood clot in lung, sent by [facility] Time Seen by Provider: 10/06/19 15:00 Source: patient Mode of arrival: ambulatory Limitations: no limitations - History of Present Illness Initial comments: Dictation was produced using [employer] dictation software. please excuse any grammatical, word or spelling errors. Chief Complaint: 83-year-old male presents with dyspnea and coughing. History of Present Illness: Is an 83-year-old male presents today with dyspnea and coughing. Patient has been having symptoms for the last 72 hours. Patient has history of atrial fibrillation. He is on anticoagulation medications. Patient went to the [facility] urgent care for evaluation. He had an x-ray performed and was redirected to the emergency department for further evaluation. She has been having cough productive of green sputum for the last 48 hours. Been feeling generally weak and short of breath. The ROS documented in this emergency department record has been reviewed and confirmed by me. Those systems with pertinent positive or negative responses have been documented in the HPI. All other systems are other negative and/or noncontributory. PHYSICAL EXAM: General Impression: Alert and oriented x3, not in acute distress HEENT: Normocephalic atraumatic, extra-ocular movements intact, pupils equal and reactive to light bilaterally, mucous membranes moist. Cardiovascular: Heart regular rate and rhythm, S1&S2 audible, no murmurs, rubs or gallops Chest: Lungs clear to auscultation bilaterally, no rhonchi, no wheeze, no rales Abdomen: Bowel sounds present, abdomen soft, non-tender, non-distended, no organomegaly Musculoskeletal: Pulses present and equal in all extremities, no peripheral edema Motor: no focal deficits noted Neurological: CN II-XII grossly intact, no focal motor or sensory deficits noted Skin: Intact with no visualized rashes Psych: Normal affect and mood ED course: 83-year-old male presents with dyspnea. Signs upon arrival are within acceptable limits. Patient's well-appearing. EKG was obtained showing atrial fibrillation. Patient is a history of this. He is on and a correlation medications. Laboratory evaluation obtained. Leukocytosis of 17.9. Coag panel unremarkable. Metabolic panel shows no acute processes. Influenza test is negative. Chest x-ray shows she is well-appearing at bedside. He is coughing. Options discussed with patient. He states he feels well to go home and will return if his symptoms acutely worsen otherwise he reports he will follow-up with his [facility] doctor. Patient given ceftriaxone IV push. Prescription provided for Zithromax pack. EKG interpretation: Ventricular rate 81, A. fib, QS 92, QTc 439. No [place] prolongation, no QTC prolongation, no ST or T-wave changes noted. EKG compared to 02/22/2018 showing no changes. Overall, this EKG is unremarkable - Related Data Home Medications Medication Instructions Recorded Confirmed Apixaban [Eliquis] 2.5 mg PO BID 02/27/17 10/06/19 Aspirin EC [Ecotrin Low Dose] 81 mg PO DAILY 02/27/17 10/06/19 Simvastatin [Zocor] 20 mg PO HS 03/02/18 10/06/19 Acetaminophen Tab [Tylenol Tab] 500 mg PO Q6H 10/06/19 10/06/19 Losartan [Cozaar] 25 mg PO BID 10/06/19 10/06/19 Previous Rx's Medication Instructions Recorded Nitroglycerin Sl Tabs [Nitrostat] 0.4 mg SUBLINGUAL Q5M PRN #25 tab 03/01/17 Azithromycin [Zithromax Z-pack] 0 mg PO DIRECTED #6 tab 10/06/19 Allergies Allergy/AdvReac Type Severity Reaction Status Date / Time papaverine [From Pavabid] Allergy Unknown Verified 10/06/19 15:52 Review of Systems ROS Statement: Those systems with pertinent positive or pertinent negative responses have been documented in the HPI. ROS Other: All systems not noted in ROS Statement are negative. Past Medical History Past Medical History: Atrial Fibrillation, Hyperlipidemia, Hypertension, Myocardial Infarction ([place]) Additional Past Medical History / Comment(s): pt states he did have an episode at [facility] where he had "something going on" with his heart, does not know what it was Last Myocardial Infarction Date:: 2011 History of Any Multi-Drug Resistant Organisms: None Reported Past Surgical History: Heart Catheterization With Stent, Hernia Repair, Orthopedic Surgery Additional Past Surgical History / Comment(s): left knee, left ankle, right shoulder, pt thinks 1 or 2 stents not sure in what vessel Past Anesthesia/Blood Transfusion Reactions: No Reported Reaction Date of Last Stent Placement:: 2011 Past Psychological History: No Psychological Hx Reported Smoking Status: Never smoker Past Alcohol Use History: Occasional Past Drug Use History: None Reported - Past Family History Father Family Medical History: Cancer General Exam Limitations: no limitations Course Vital Signs 10/06/19 14:55 Temperature 98.6 F Pulse Rate 72 Respiratory 20 Rate Blood Pressure 161/73 O2 Sat by Pulse 95 Oximetry Medical Decision Making - Lab Data Result diagrams: 10/06/19 15:10 10/06/19 15:10 Lab Results 10/06/19 10/06/19 10/06/19 Range/Units 15:10 15:10 15:10 WBC 17.9 H (3.8-10.6) k/uL RBC 4.82 (4.30-5.90) m/uL Hgb 15.0 (13.0-17.5) gm/dL Hct 44.9 (39.0-53.0) % MCV 93.3 (80.0-100.0) fL MCH 31.2 (25.0-35.0) pg MCHC 33.4 (31.0-37.0) g/dL RDW 12.9 (11.5-15.5) % Plt Count 198 (150-450) k/uL Neutrophils % 88 % Lymphocytes % 8 % Monocytes % 3 % Eosinophils % 0 % Basophils % 0 % Neutrophils # 15.7 H (1.3-7.7) k/uL Lymphocytes # 1.4 (1.0-4.8) k/uL Monocytes # 0.6 (0-1.0) k/uL Eosinophils # 0.1 (0-0.7) k/uL Basophils # 0.0 (0-0.2) k/uL PT 10.5 (9.0-12.0) sec INR 1.0 (<1.2) APTT 25.2 (22.0-30.0) sec Sodium 139 (137-145) mmol/L Potassium 4.2 (3.5-5.1) mmol/L Chloride 102 (98-107) mmol/L Carbon Dioxide 26 (22-30) mmol/L Anion Gap 11 mmol/L BUN 23 H (9-20) mg/dL Creatinine 1.00 (0.66-1.25) mg/dL Est GFR (CKD-EPI)AfAm 81 (>60 ml/min/1.73 sqM) Est GFR (CKD-EPI)NonAf 70 (>60 ml/min/1.73 sqM) Glucose 108 H (74-99) mg/dL Calcium 9.6 (8.4-10.2) mg/dL Magnesium 1.8 (1.6-2.3) mg/dL Troponin I (0.000-0.034) ng/mL Influenza Type A RNA (Not Detectd) Influenza Type B (PCR) (Not Detectd) 10/06/19 10/06/19 Range/Units 15:10 15:45 WBC (3.8-10.6) k/uL RBC (4.30-5.90) m/uL Hgb (13.0-17.5) gm/dL Hct (39.0-53.0) % MCV (80.0-100.0) fL MCH (25.0-35.0) pg MCHC (31.0-37.0) g/dL RDW (11.5-15.5) % Plt Count (150-450) k/uL Neutrophils % % Lymphocytes % % Monocytes % % Eosinophils % % Basophils % % Neutrophils # (1.3-7.7) k/uL Lymphocytes # (1.0-4.8) k/uL Monocytes # (0-1.0) k/uL Eosinophils # (0-0.7) k/uL Basophils # (0-0.2) k/uL PT (9.0-12.0) sec INR (<1.2) APTT (22.0-30.0) sec Sodium (137-145) mmol/L Potassium (3.5-5.1) mmol/L Chloride (98-107) mmol/L Carbon Dioxide (22-30) mmol/L Anion Gap mmol/L BUN (9-20) mg/dL Creatinine (0.66-1.25) mg/dL Est GFR (CKD-EPI)AfAm (>60 ml/min/1.73 sqM) Est GFR (CKD-EPI)NonAf (>60 ml/min/1.73 sqM) Glucose (74-99) mg/dL Calcium (8.4-10.2) mg/dL Magnesium (1.6-2.3) mg/dL Troponin I <0.012 (0.000-0.034) ng/mL Influenza Type A RNA Not Detected (Not Detectd) Influenza Type B (PCR) Not Detected (Not Detectd) Disposition Clinical Impression: Cough Disposition: HOME SELF-CARE Condition: Good Instructions (If sedation given, give patient instructions): Bacterial Pneumonia (ED) Prescriptions: Azithromycin [Zithromax Z-pack] 0 mg PO DIRECTED #6 tab Is patient prescribed a controlled substance at d/c from ED?: No Referrals: [facility],Clinic [Primary Care Provider] - 1-2 days Time of Disposition: 16:40
--- NOTE | 2019-10-06 15:35 | XR ---
EXAMINATION TYPE: XR chest 2V DATE OF EXAM: 10/06/2019 COMPARISON: Chest x-ray March 02, 2018. HISTORY: Shortness of breath. TECHNIQUE: Frontal and lateral views of the chest are obtained. FINDINGS: There is bibasilar opacities. The cardiac silhouette size is enlarged with atheroscleroti c and ectatic aorta. The osseous structures are intact. IMPRESSION: Cardiomegaly with bibasilar acute infiltrate and/or atelectasis seen.
[2019-10-06 15:40] LABS: Basophils % (A) 0 %; Eosinophils # (A) 0.1 k/uL (0-0.7); Eosinophils % (A) 0 %; HCT 44.9 % (39.0-53.0); Lymphocytes # (A) 1.4 k/uL (1.0-4.8); Lymphocytes % (A) 8 %; MCH 31.2 pg (25.0-35.0); MCHC 33.4 g/dL (31.0-37.0); MCV 93.3 fL (80.0-100.0); Mean Platelet Volume 7.2; Monocytes # (A) 0.6 k/uL (0-1.0); Monocytes % (A) 3 %; Neutrophils # (A) 15.7 k/uL (1.3-7.7); Neutrophils % (A) 88 %; Platelet Count 198 k/uL (150-450); RBC 4.82 m/uL (4.30-5.90); RDW 12.9 % (11.5-15.5); WBC 17.9 k/uL (3.8-10.6)
[2019-10-06 15:46] LABS: Partial Thromboplastin Time 25.2 sec (22.0-30.0); Prothrombin Time 10.5 sec (9.0-12.0)
[2019-10-06 15:47] LABS: Calcium 9.6 mg/dL (8.4-10.2); Magnesium 1.8 mg/dL (1.6-2.3); Potassium 4.2 mmol/L (3.5-5.1)
[2019-10-06] MEDS ORDERED: cefTRIAXone IN SWFI 1,000 MG/10 ML SYRINGE IVP STA (16:32)
[2019-10-06 16:50] VITALS: BP 143/92; PULSE 75; RESP 18
== END 2019-10-06 16:57 | disposition home or self-care (01) ==
LOC: EC 14:51
DX: R05 Cough (principal); R06.00 Dyspnea, unspecified; I48.91 Unspecified atrial fibrillation; E78.5 Hyperlipidemia, unspecified; I10 Essential (primary) hypertension; I25.2 Old myocardial infarction; Z79.01 Long term (current) use of anticoagulants; Z79.82 Long term (current) use of aspirin; Z79.899 Other long term (current) drug therapy; Z88.8 Allergy status to other drugs, medicaments and biological substances; Z95.5 Presence of coronary angioplasty implant and graft
CPT/HCPCS: 36415; 93005; 80048; 83735; 84484; 85025; 85610; 85730; 87502; 71046; 99285; 96374; J0696

== ENCOUNTER → 2020-04-15 | Outpatient (CLI) | payer OTHER, MEDICARE ==
[2020-04-15 16:44] LABS: Chol/HDL Ratio 3.14; LDL Cholesterol,Calculated 64.6 mg/dL (0.0-131.0); VLDL Calculation 14.4 mg/dL (5.00-40.00)
== END | disposition home or self-care (01) ==
LOC: LABWHC1 08:12
PROVIDERS: ATTEND Internal Medicine Cardiovascular Disease
DX: E78.2 Mixed hyperlipidemia (principal)
CPT/HCPCS: 36415; 80061; 84450; 84460

== ENCOUNTER → 2020-09-28 | Outpatient (CLI) | payer MEDICARE, OTHER | END | disposition home or self-care (01) | LOC: LABWHC1 16:08 | PROVIDERS: ATTEND Internal Medicine | DX: Z03.818 Encounter for observation for suspected exposure to other biological agents ruled out (principal) | CPT/HCPCS: U0003; C9803 ==

== ENCOUNTER → 2021-10-14 | Outpatient (CLI) | payer OTHER ==
--- NOTE | 2021-10-14 17:20 | MR ---
EXAMINATION TYPE: MR lumbar spine wo con DATE OF EXAM: 10/14/2021 COMPARISON: None HISTORY: Low back pain CONTRAST: 0 mL intravenous Gadavist. TECHNIQUE: Multiplanar, multisequence images of the lumbar spine were acquired. FINDINGS: L5-S1: There is a grade 1 spondylolisthesis of L5 anteriorly on S1. Disc uncovering is present with m ild anterior thecal sac flattening. Facet hypertrophy and ligamentum flavum laxity of posterior later al thecal sac compression. No stenosis is evident. Lateral canal narrowing however may be present. L4-L5: There is loss of disc height at this level. No focal disc herniation or significant disc bulge is evident. Facet degenerative changes present. There is moderate right foraminal narrowing. L3-L4: Disc space narrowing is present. Residual disc bulge has mild anterior thecal sac compression. Facet hypertrophy and ligamentum flavum laxity has posterior lateral thecal sac compression, slightl y greater on the left. No spinal canal stenosis is present. There is moderate right and mild left for aminal stenosis. L2-L3: No significant disc bulge or disc herniation. No spinal canal stenosis. No foraminal stenosi s. Mild left facet hypertrophy is present. L1-L2: No significant disc bulge or disc herniation. No spinal canal stenosis. No foraminal stenosi s. T12-L1: No significant disc bulge or disc herniation. No spinal canal stenosis. No foraminal stenos is. IMPRESSION: 1. Grade 1 spondylolisthesis of L5 anteriorly on S1. 2. Mild lateral canal narrowing due to facet hypertrophy and ligament flavum laxity may be present L5 -S1. 3. Mild residual disc bulging L4-5 with mild anterior thecal sac flattening. No stenosis is evident. 4. Foraminal narrowing right L4-5 and right L3-4
== END | disposition home or self-care (01) ==
LOC: RADMRIMAIN 10:55
PROVIDERS: ATTEND Physician Assistant Medical
DX: M43.17 Spondylolisthesis, lumbosacral region (principal); M48.07 Spinal stenosis, lumbosacral region; M51.26 Other intervertebral disc displacement, lumbar region; M99.73 Connective tissue and disc stenosis of intervertebral foramina of lumbar region
CPT/HCPCS: 72148

== ENCOUNTER → 2022-06-05 | Outpatient (CLI) | payer OTHER ==
[2022-06-05 12:06] VITALS: BP 146/96; PULSE 71; RESP 18; TEMP 98.1
--- NOTE | 2022-06-05 15:01 | P.PAINPG ---
PQRS Measure Charge Sheet Comment: HISTORY OF PRESENT ILLNESS: 86 yr old male w at side as a referral from the [facility] in [place] presents today w severe and chronic LBP secondary to spondylolisthesis, neuroforaminal stenoses and facet arthropathy for evaluation. Patient states his pain level is 8 out of 10 in intensity, constant, burning in character for the last 2 years. Pain is worse in the morning and with weightbearing activity. Pain originates in the lower aspect of his lumbar spine with radiation to the right hip, right knee and right toes. Pain is alleviated with medications (Tylenol), topicals CBD oil, Lidoderm patches, ice, heat, physical therapy for 12 weeks which ended in April 2022, use of a cane for ambulation, home stretching regimen, massage therapy integrated with PT, sitting with his right lower extremity extended, repositioning and rest. PMH: Atrial Fibrillation, Hyperlipidemia, HTN, [place] (2011), OA, CAD, BPH PSH: Cardiac Stent (2011), Hernia Repair, L Knee Surgery, R Shoulder Surgery, L Ankle Surgery SH: Current tobacco user, Rare ETOH use, No illicit drug use. and lives w spouse. FH: Father- [place]. All: Papaverine Meds: See list REVIEW OF ORGAN SYSTEMS: CONSTITUTIONAL: No fevers or chills. No recent weight loss. NEUROLOGICAL: + numbness and tingling along the distal extremities. No seizure disorders or headaches. MUSCULOSKELETAL: + pain PSYCHIATRIC: Denies current depression or suicidal thoughts. Physical Examinations : Constitutional : Cooperative , not in acute distress . Neurologic : Cranial nerve II to XII intact. No focal neurological deficits. Psychiatric : alert & oriented x 3. Matching mood & appropriate affect. Judgment & insight intact. Musculoskeletal : Cervical Spine Motor strength in the deltoid and biceps: Normal right side. Normal Left side Motor strength biceps and the wrist extensors: Normal right side . Normal left side Motor strength in the triceps muscle: Normal right side. Normal left side Deep tendon reflexes: Normal at the biceps. Normal at Brachioradialis. Normal at triceps Vertebral body tenderness to deep palpation over Cervical facet loading test: positive bilaterally Spurling test: positive bilaterally Neck distraction test: positive bilaterally Ami sign: positive bilaterally Lumbar spine Motor strength lower extremities ,thigh and legs 5/5 Right side , 5/5 Left side Deep tendon reflexes : Normal Knee Jerk. Normal Ankle Jerk Vertebral body tenderness over L4 Lumbar facet Loading Test: positive Right / positive Left Range of motion of the lumbar spine Flexion 30 degrees, extension 10 degrees Straight Leg Raise test: Left/ Right positive at 30 degree Zack test: positive right / positive left. Severe tenderness over the Sacroiliac joint on the Right / Left sides Gaenslen test: positive bilaterally Seated flexion test: positive bilaterally. Sacral spine : Severe tenderness over the Sacroiliac joint: right side / left side Range of motion: Flexion of the lumbar spine <60 degrees Range of motion: Extension of the lumbar spine <20 degrees Gaenslen's Test positive Mickey's Test positive Zack test: positive right side / left side Thigh Thrust Test Sacral Thrust Test Imaging: MRI without contrast of the lumbar spine from 10/14/21 reviewed Assessment/ Plan : Lumbar DDD Recommendation of right paramedian L4-L5 NORMAN. May need a series of injections, up to 3 within a six-month timeframe, for optimal pain relief. Risks, benefits of procedure discussed and patient verbalized understanding. Admits to aspirin or anti- coagulant use and denies a medical history of diabetes. Protocol for discontinuation/ continuation of medications stone procedure discussed. Need medical clearance from his auto tester, Dr. Carrion. All questions answered. I have spent greater than 30 minutes on patient care today. Dr Cardoso was available by phone for the evaluation of this patient. The time was used to review the medical records including relevant urine studies and Prescription history (MAPs), review of the available imaging, evaluation and examination of the patient, coordination of care with the medical staff and if applicable referring physicians, as well as creation of the medical record PQRS Narrative: Smoking Status Never smoker Home Medications: Ambulatory Orders Apixaban [Eliquis] 2.5 mg PO BID 02/27/17 Aspirin EC [Ecotrin Low Dose] 81 mg PO DAILY 02/27/17 Nitroglycerin Sl Tabs [Nitrostat] 0.4 mg SUBLINGUAL Q5M PRN #25 tab 03/01/17 Simvastatin [Zocor] 20 mg PO HS 03/02/18 Acetaminophen Tab [Tylenol Tab] 500 mg PO Q6H 10/06/19 Azithromycin [Zithromax Z-pack] 0 mg PO DIRECTED #6 tab 10/06/19 Losartan [Cozaar] 25 mg PO BID 10/06/19 Controlled Substance Measures - Controlled Substance Measures Is patient prescribed a controlled substance at discharge?: No
== END ==
LOC: PNWHC3 09:42
PROVIDERS: ATTEND Specialist
DX: M51.36 Other intervertebral disc degeneration, lumbar region (principal); I48.91 Unspecified atrial fibrillation; E78.5 Hyperlipidemia, unspecified; I10 Essential (primary) hypertension; I25.2 Old myocardial infarction; M19.90 Unspecified osteoarthritis, unspecified site; I25.10 Atherosclerotic heart disease of native coronary artery without angina pectoris; Z79.82 Long term (current) use of aspirin; Z88.8 Allergy status to other drugs, medicaments and biological substances
CPT/HCPCS: 99211

== ENCOUNTER → 2022-07-06 | Day surgery (SDC) | payer OTHER ==
[2022-07-05 12:58] VITALS: BMI 34.8
[~2022-07-06] MED LIST: IOPAMIDOL M200 10 ML VIAL ONE; IV FLUID CONTINUATION 1,000 ML IV ONE; LACTATED RINGERS 1,000 ML IV SCH; LIDOCAINE 1% (10MG/ML) FOR IV START INTRADERMA PRN; MIDAZOLAM 2 MG/2 ML VIAL ONE; TRIAMCINOLONE ACETONIDE 40 MG/ML 1 ML VIAL ONE; fentaNYL (PF) 50 MCG/ML 2 ML AMP ONE
[2022-07-06 08:47] VITALS: TEMP 97
--- NOTE | 2022-07-06 10:08 | P.PCN ---
Date of Procedure: 07/06/22 Description of Procedure: Procedure: 1. L4-L5 Epidural steroid injection under fluoroscopic guidance # 1/ , 2. Lumbar epidurogram PREOPERATIVE DIAGNOSIS: Lumbar degenerative disc disease, and Lumbar radiculopathy. POSTOPERATIVE DIAGNOSIS: Lumbar degenerative disc disease, and Lumbar radiculopathy. SURGEON: Kelsie Chris ANESTHESIA: Local with 1% lidocaine, and IV sedation as per anesthesia record Sedation supervision start time : 0 955 sedation Supervision end time: 1005 EBL: None. Specimen removed: None Fluoroscopic image: saved to electronic medical records PROCEDURE INDICATION: The patient had history of Lumbar degenerative disc disease and Lumbar radiculopathy. Failed to conservative therapy. Presented for epidural steroid injection. PROCEDURE DESCRIPTION: The patient was seen and identified in the preoperative area. Risks, benefits, complications, and alternatives were discussed with the patient. The patient agreed to proceed with the procedure and signed the consent. IV was started, and vital signs were stable. Patient was taken to the procedure area, and time out was completed. The patient was placed in the prone position on procedure table and a pillow was placed under the abdomen to reduce lumbar lordosis. The lumbosacral area was prepped and draped in the usual sterile fashion. Critical pause was taken. Vital signs were closely monitored during the procedure. Using anterior-posterior fluoroscopy, the L4-L5 interlaminar space was i dentified, and skin and deeper tissues were localized with 1% lidocaine. Using anterior-posterior fluoroscopy, lateral fluoroscopy, and [id number] technique, a 20 gauge 3.5 Tuohy epidural needle entered the epidural space. After negative aspiration of CSF and blood with no paresthesias, 1 ml of [id number] contrast dye was injected and an excellent epidurogram was seen. Again after negative aspiration of CSF and blood with no paresthesias, 8mL of block solution was injected into the epidural space. Block solution contained 40 mg of Depo-Medrol, and 7 mL of preservative-free normal saline. Needle was withdrawn intact, skin was cleansed, and bandages were applied. COMPLICATIONS: None. DISPOSITION / PLANS: The patient was placed in a supine position and transferred to the recovery area in a stable condition for observation. Patient was discharged from the recovery room after meeting discharge criteria. Home discharge instructions given to the patient by the staff. The patient was reexamined prior to discharge. The patient will schedule a follow up in the clinic in 4 weeks.
[2022-07-06 10:18] VITALS: RESP 15
--- NOTE | 2022-07-06 10:20 | FL ---
EXAMINATION TYPE: FL guided pain mgmt statistic DATE OF EXAM: 07/06/2022 CLINICAL HISTORY: Low back pain. TECHNIQUE: Fluoroscopy. COMPARISON: None. FINDINGS: Fluoroscopic guidance was provided during pain relief procedure performed by Dr. Cardoso . A total of 12 seconds of fluoroscopic time was utilized during the procedure and two spot images a re acquired. Images acquired shows needle localization at the posterior L4 level. IMPRESSION: As Above.
[2022-07-06 10:30] VITALS: BP 154/84; PULSE 62
== END ==
LOC: ORPAIN 08:01
DX: M51.16 Intervertebral disc disorders with radiculopathy, lumbar region (principal); M54.50 Low back pain, unspecified; I10 Essential (primary) hypertension; I25.10 Atherosclerotic heart disease of native coronary artery without angina pectoris; E78.00 Pure hypercholesterolemia, unspecified; I21.9 Acute myocardial infarction, unspecified; N40.0 Benign prostatic hyperplasia without lower urinary tract symptoms; Z88.6 Allergy status to analgesic agent
CPT/HCPCS: 62323; J2250; J3301; J3010; Q9966; 99152

== ENCOUNTER → 2022-08-03 | Outpatient (CLI) | payer OTHER ==
[2022-08-03 09:25] VITALS: BP 171/84; PULSE 68; RESP 16; TEMP 98.5
--- NOTE | 2022-08-03 13:38 | P.PAINPG ---
PQRS Measure Charge Sheet Comment: A 86 yr old male w at side with a history of severe and chronic low back pain secondary to lumbar degenerative disc diseases and lumbar spondylosis with facet arthropathy without myelopathy presents today for evaluation s/p NORMAN L4-5 #1/3. Pt states he experienced 50% pain relief x 4 wks s/p procedure. Pain level is currently at 5/10 in intensity, constant, localized in the R lumbar spine, dull/ achy in character w shooting towards the R hip. Pain is provoked by twisting/lifting. Pain is alleviated with PT integrated w massage in [id number], home exercise regimen, meds (Tylenol OTC, Lidoderm), +CBD oil, use of cane for ambulation, sitting, repoisitoning and rest. Interventional pain procedures completed include NORMAN L4-5 x1. Patient is currently on Tylenol OTC, Lidoderm Patient denies any side effects of the medication(s), denies excessive drowsiness or sleepiness, denies suicidal ideation and reports that the current pain medication is helping to control the pain and improve activities of daily living. Patient denies any motor or sensory deficits. Patient denies any fever or night sweats, denies any change in the bowel movements or urination. Physical Examination: -Constitutional: Cooperative. Not in acute distress . - Neurologic: Cranial nerve II to XII intact. No focal neurological deficits. - Psychatric: Alert & oriented x 3. Matching mood & appropriate affect. Judgment and insight intact. - Musculoskeletal: Cervical spine: Muscle bulk/ tone/ strength in the bilateral upper extremities normal Vertebral body tenderness to palpation over Spurling test positive Distraction test positive Facet loading test positive Thoracic spine Muscle bulk / tone/ strength in the bilateral paraspinal muscles normal Vertebral body tender to palpation over Facet loading test positive Lumbar spine: Motor bulk/ tone/ strength lower extremities , thigh and legs : 5/5 Deep tendon reflexes : Normal Knee Jerk. Normal Ankle Jerk . Vertebral body tenderness to palpation over L4 Lumbar Facet Loading Test positive Straight Leg Raise: positive at 30 degrees right side/ left side Gaenslen's Test positive Sacral spine : Severe tenderness over the Sacroiliac joint: right side / left side Range of motion: Flexion of the lumbar spine <60 degrees Range of motion: Extension of the lumbar spine <20 degrees Gaenslen's Test positive Mickey's Test positive Zack test: positive right side / left side Thigh Thrust Test Sacral Thrust Test Assessment and plan: Chronic low back pain secondary to lumbar degenerative disc disease , lumbar spondylosis with facet arthropathy without myelopathy Recommendation of NORMAN L4-5 #2. May need a series of injections, up to 3 within a 6 mo period, for opitmal pain relief. Risks, benefits of procedure discussed and pt verbalized understanding. Admits to anticoagulant use or medical history of diabetes. Protocol for discontinuation/ continuation of meds stone procedure discussed. All patient questions answered I have spent less than 30 minutes on patient care today. Dr Cardoso was available by phone for the evaluation of this patient. The time was used to review the medical records including relevant urine studies and Prescription history (MAPs), review of the available imaging, evaluation and examination of the patient, coordination of care with the medical staff and if applicable referring physicians, as well as creation of the medical record PQRS Narrative: Smoking Status Never smoker Hx Alcohol Use (MH) Yes: OCCASIONAL Home Medications: Ambulatory Orders Apixaban [Eliquis] 2.5 mg PO BID 02/27/17 Aspirin EC [Ecotrin Low Dose] 81 mg PO DAILY 02/27/17 Nitroglycerin Sl Tabs [Nitrostat] 0.4 mg SUBLINGUAL Q5M PRN #25 tab 03/01/17 Simvastatin [Zocor] 20 mg PO HS 03/02/18 Acetaminophen Tab [Tylenol Tab] 500 mg PO Q6H 10/06/19 Losartan [Cozaar] 25 mg PO BID 10/06/19 Multivitamins, Thera [Multivitamin (formulary)] 1 tab PO DAILY 07/05/22 Tamsulosin [Flomax] 0.4 mg PO DAILY 07/05/22 Controlled Substance Measures - Controlled Substance Measures Is patient prescribed a controlled substance at discharge?: No
== END ==
LOC: PNWHC3 08:50
PROVIDERS: ATTEND Specialist
DX: M47.816 Spondylosis without myelopathy or radiculopathy, lumbar region (principal); M51.36 Other intervertebral disc degeneration, lumbar region; G89.29 Other chronic pain; E11.9 Type 2 diabetes mellitus without complications; Z88.6 Allergy status to analgesic agent; Z79.01 Long term (current) use of anticoagulants
CPT/HCPCS: 99211

== ENCOUNTER → 2022-08-28 | Outpatient (CLI) | payer OTHER ==
--- NOTE | 2022-08-29 08:59 | US ---
EXAMINATION TYPE: US arterial LE single level DATE OF EXAM: 08/28/2022 1:47 PM CLINICAL HISTORY: I73.89 Other specified peripheral vascular disease. Bilateral foot numbness and col dness. Multiphasic waveforms in the popliteal arteries. Ankle-Brachial Indices: Right: 1.2 Left: 1.2 Toe Brachial Indices: Right: 0.67 Left: 0.71 IMPRESSION: Normal ankle-brachial indices
== END | disposition home or self-care (01) ==
LOC: RADUSWWP 12:59
PROVIDERS: ATTEND Family Medicine
DX: I73.89 Other specified peripheral vascular diseases (principal)
CPT/HCPCS: 93922

== ENCOUNTER 2022-09-07 11:15 | Day surgery (SDC) | payer OTHER ==
[2022-09-05 10:14] VITALS: BMI 34.8
[~2022-09-07 11:15] MED LIST changes: -IOPAMIDOL M200 10 ML VIAL ONE; -IV FLUID CONTINUATION 1,000 ML IV ONE; -MIDAZOLAM 2 MG/2 ML VIAL ONE; -TRIAMCINOLONE ACETONIDE 40 MG/ML 1 ML VIAL ONE; -fentaNYL (PF) 50 MCG/ML 2 ML AMP ONE
[2022-09-07 12:28] VITALS: TEMP 97.3
[2022-09-07] MEDS ORDERED: methylPREDNISolone ACETATE 40 MG/ML 1 ML VIAL ONE (12:49)
[2022-09-07] MEDS ORDERED: MIDAZOLAM 2 MG/2 ML VIAL ONE (12:49)
[2022-09-07] MEDS ORDERED: IOPAMIDOL M200 10 ML VIAL ONE (12:49)
[2022-09-07] MEDS ORDERED: IV FLUID CONTINUATION 1,000 ML IV ONE (13:05)
--- NOTE | 2022-09-07 13:05 | P.PCN ---
Date of Procedure: 09/07/22 Procedure(s) Performed: PREOPERATIVE DIAGNOSIS: 1- Lumbar Degenerative Disc Diseases 2-Lumbar spondylosis with Facet arthropathy without myelopathy. 3-lumbar radiculopathy POSTOPERATIVE DIAGNOSIS: Same as preop diagnosis. PROCEDURE 1. Lumbar epidural steroid injection under fluoroscopic guidance at the L4-5 level. (Fluoroscopy imaging was available in radiology department) 2. Lumbar epidurogram. ANESTHESIA: moderate sedation with intravenous Versed 1 mg . Sedation start time : 1254 Sedation end time : 13:00 EBL: Minimal PROCEDURE INDICATION: The patient with low back pain and radiculitis symptoms unresponsive to conservative treatment. Fluoroscopy was used to optimize visualization of the needle placement and to maximize safety. PROCEDURE DESCRIPTION / TECHNIQUE: The patient was seen and identified in the preoperative area. Risks, benefits, complications including but not limited to infections ,bleeding ,allergic reaction to the medications ,nerve damage and not complete pain releife , and alternatives were discussed with the patient. The patient agreed to proceed with the procedure and signed the consent. IV was started, and vital signs were stable. Patient was taken to the OR and time out was completed. The patient was placed in the prone position on procedure table and a pillow was placed under the abdomen to reduce lumbar lordosis. The lumbosacral area was prepped and draped in the usual sterile fashion.ere closely monitored during the procedure. Conscious sedation was used during the procedure to decrease patients anxiety. Vital signs was monitered during the entire procedure. Using anterior-posterior fluoroscopy, the L4-5 interlaminar space was identified and the skin over this site was marked and then infiltrated with 1% lidocaine subcutaneously. Subsequently, a 20-gauge Tuohy epidural needle was inserted and advanced toward the epidural space using the ``Loss of resistance technique and guided by AP and lateral fluoroscopy. The correct needle position in the epidural space was verified with the injection of 2 mL of the water soluble contrast dye Isovue 200 contrast and observing an excellent epidurogram with the epidural spread of the dye, after negative aspiration for blood and CSF and in the absence of paresthesias. Again after negative aspiration, a 6 ml mixture containing 40 mg of Depo-medrol ( Preservetive Free ), and 2 ml of preservative free Normal Saline, and 2 ml of preservative free lidocaine 1% solution was injected and a washout of epidurogram was seen. Needle was withdrawn intact, skin was cleansed, and bandages were applied. COMPLICATIONS: None DISPOSITION / PLANS: The patient was placed in a supine position and transferred to the recovery area in a stable condition for observation. There was no evidence of lower extremity motor or sensory deficit after the procedure. Patient was discharged from the recovery room after meeting discharge criteria. Home discharge instructions were given to the patient by the staff. The patient was reexamined prior to discharge. The patient will schedule a follow up in the clinic in 2-4 weeks. Patient take Eliquis and the last dose taken was more than 72 hours ago
[2022-09-07 13:13] VITALS: RESP 15
[2022-09-07 13:29] VITALS: BP 161/94; PULSE 63
--- NOTE | 2022-09-07 16:38 | FL ---
EXAMINATION TYPE: FL guided pain mgmt statistic DATE OF EXAM: 09/07/2022 FLUOROSCOPY Fluoroscopy time of 1 seconds was used during lumbar epidural injection. 2 image/s document/s the pr melani.
== END 2022-09-07 13:47 | disposition home or self-care (01) ==
LOC: ORPAIN 11:15
PROVIDERS: ATTEND Specialist
DX: M51.16 Intervertebral disc disorders with radiculopathy, lumbar region (principal); M47.26 Other spondylosis with radiculopathy, lumbar region; M12.88 Other specific arthropathies, not elsewhere classified, other specified site; I25.10 Atherosclerotic heart disease of native coronary artery without angina pectoris; Z88.8 Allergy status to other drugs, medicaments and biological substances
CPT/HCPCS: 62323; J2250; J1030; Q9966

== ENCOUNTER → 2022-10-11 | Outpatient (CLI) | payer OTHER ==
[2022-10-11 12:50] VITALS: BP 149/86; PULSE 68; RESP 18; TEMP 98.1
--- NOTE | 2022-10-11 14:25 | P.PAINPG ---
PQRS Measure Charge Sheet Comment: A 86 yr old male w at side with a history of severe and chronic low back pain secondary to lumbar DDD and spondylosis with facet arthropathy without myelopathy presents today for evaluation s/p NORMAN L4-L5. Pt states he experienced 80% pain relief x 1 wk s/p procedure. Pain level is currently at 5 /10 in intensity, constant, localized in the center lumbar spine, dull/ achy in character w shooting towards the lateral R hip and LE. Pain is provoked by walking/ standing for periods of 10min or more. Pain is alleviated with medications (Tylenol), topicals CPD oil, injections, PT integrated with massage 3 months in April 2022, repositioning and rest. Interventional pain procedures completed include NORMAN L4-L5 x2 Patient is currently on Tyl Patient denies any side effects of the medication(s), denies excessive drowsiness or sleepiness, denies suicidal ideation and reports that the current pain medication is helping to control the pain and improve activities of daily living. Patient denies any motor or sensory deficits. Patient denies any fever or night sweats, denies any change in the bowel movements or urination. Physical Examination: -Constitutional: Cooperative. Not in acute distress . - Neurologic: Cranial nerve II to XII intact. No focal neurological deficits. - Psychatric: Alert & oriented x 3. Matching mood & appropriate affect. Judgment and insight intact. - Musculoskeletal: Cervical spine: Muscle bulk/ tone/ strength in the bilateral upper extremities normal Vertebral body tenderness to palpation over Spurling test positive Distraction test positive Facet loading test positive Thoracic spine Muscle bulk / tone/ strength in the bilateral paraspinal muscles normal Vertebral body tender to palpation over Facet loading test positive Lumbar spine: Motor bulk/ tone/ strength lower extremities , thigh and legs : 5/5 Deep tendon reflexes : Normal Knee Jerk. Normal Ankle Jerk . Vertebral body tenderness to palpation over L5 Lumbar Facet Loading Test positive Straight Leg Raise: positive at 30 degrees right side/ left side Gaenslen's Test positive Sacral spine : Severe tenderness over the Sacroiliac joint: right side / left side Range of motion: Flexion of the lumbar spine <60 degrees Range of motion: Extension of the lumbar spine <20 degrees Gaenslen's Test positive Zack test: positive right side / left side Thigh Thrust Test Sacral Thrust Test Assessment and plan: Chronic low back pain secondary to lumbar degenerative disc disease, spondylosis with facet arthropathy without myelopathy Recommendation of NORMAN L5-S1. May need a series of injections, up to 4 within a 12 mo period, for optimal pain relief. Risks, benefits of procedure discussed and pt verbalized understanding. Admit anticoagulant use or medical history of diabetes. Protocol for discontinuation/ continuation of medications stone procedure discussed. Chronic and current use of high-risk medication (Opioids). The patient was counseled about risk of opioid use, psychological risk associated with opioids and was orally counseled to not overuse , divert or sell medications. Pt is to store medication in a safe location. The patient is counseled against driving while using narcotic medications and also not to use alcohol or any illicit recreational drugs. Patient verbalized understanding that the lack of compliance will result in failure to renew narcotic prescription(s) as well as possible discharge from the clinic Diagnoses, prognosis and treatment options including but not limited to physical therapy, surgical interventions, interventional therapies and medication management including narcotics and adjuvant medication were di scussed. All patient questions answered MAPS reviewed and it was appropriate. Prescription refill for Tyl #3 #60 w 1 RF. Narcotic/ Opiate agreement signed today 10/11/22. I have spent less than 30 minutes on patient care today. Dr Cardoso was available by phone for the evaluation of this patient. The time was used to review the medical records including relevant urine studies and Prescription history (MAPs), review of the available imaging, evaluation and examination of the patient, coordination of care with the medical staff and if applicable referring physicians, as well as creation of the medical record PQRS Narrative: Smoking Status Never smoker Hx Alcohol Use (MH) Yes: OCCASIONAL Home Medications: Ambulatory Orders Apixaban [Eliquis] 5 mg PO BID 02/27/17 Aspirin EC [Ecotrin Low Dose] 81 mg PO DAILY 02/27/17 Nitroglycerin Sl Tabs [Nitrostat] 0.4 mg SUBLINGUAL Q5M PRN #25 tab 03/01/17 Simvastatin [Zocor] 20 mg PO HS 03/02/18 Acetaminophen Tab [Tylenol Tab] 500 mg PO Q6H 10/06/19 Losartan [Cozaar] 25 mg PO BID 10/06/19 Multivitamins, Thera [Multivitamin (formulary)] 1 tab PO DAILY 07/05/22 Tamsulosin [Flomax] 0.4 mg PO DAILY 07/05/22 Finasteride [Proscar] 5 mg PO DAILY 09/05/22 Furosemide [Lasix] 20 mg PO DAILY PRN 09/05/22 Magnesium 200 mg PO DAILY 09/05/22 Zinc Gluconate [Zinc] 50 mg PO DAILY 09/05/22 Acetaminophen-Codeine 300-30mg [Tylenol w/codeine #3] 1 tab PO Q12H PRN 30 Days #60 tablet 10/11/22 Controlled Substance Measures - Controlled Substance Measures Is patient prescribed a controlled substance at discharge?: Yes When asked, does pt state using other controlled substances?: No If prescribed controlled substance>3 days was MAPS reviewed?: Yes If Rx opioid, was Start Talking consent form obtained?: Yes Was information provided regarding opioid addiction?: Yes
== END ==
LOC: PNWHC3 12:09
PROVIDERS: ATTEND Specialist
DX: M47.816 Spondylosis without myelopathy or radiculopathy, lumbar region (principal); M51.36 Other intervertebral disc degeneration, lumbar region; G89.29 Other chronic pain; Z79.891 Long term (current) use of opiate analgesic; Z88.8 Allergy status to other drugs, medicaments and biological substances
CPT/HCPCS: 99211

== ENCOUNTER 2022-11-09 08:12 | Day surgery (SDC) | payer OTHER ==
[~2022-11-09 08:12] MED LIST changes: -LIDOCAINE 1% (10MG/ML) FOR IV START INTRADERMA PRN
[2022-11-09 08:36] VITALS: TEMP 97.3
[2022-11-09] MEDS ORDERED: LIDOCAINE 1% (10MG/ML) FOR IV START INTRADERMA ONE (08:45)
[2022-11-09] MEDS ORDERED: MIDAZOLAM 2 MG/2 ML VIAL ONE (08:54)
[2022-11-09] MEDS ORDERED: methylPREDNISolone ACETATE 80 MG/ML 1 ML VIAL ONE (08:54)
[2022-11-09] MEDS ORDERED: IOPAMIDOL M200 10 ML VIAL ONE (08:54)
[2022-11-09] MEDS ORDERED: fentaNYL (PF) 50 MCG/ML 2 ML AMP ONE (08:54)
--- NOTE | 2022-11-09 09:08 | P.PCN ---
Date of Procedure: 11/09/22 Description of Procedure: Procedure: 1. L5-S1 Epidural steroid injection under fluoroscopic guidance # 3/3 , 2. Lumbar epidurogram PREOPERATIVE DIAGNOSIS: Lumbar degenerative disc disease, and Lumbar radiculopathy. POSTOPERATIVE DIAGNOSIS: Lumbar degenerative disc disease, and Lumbar radiculopathy. SURGEON: Kelsie Chris ANESTHESIA: Local with 1% lidocaine, and IV sedation: Versed 1 mg, and fentanyl 25 g Sedation supervision start time: 857 Sedation supervision ended time 905 EBL: None. Specimen removed: None Fluoroscopic image: saved to electronic medical records PROCEDURE INDICATION: The patient had history of Lumbar degenerative disc disease and Lumbar radiculopathy. Failed to conservative therapy. Presented for epidural steroid injection. PROCEDURE DESCRIPTION: The patient was seen and identified in the preoperative area. Risks, benefits, complications, and alternatives were discussed with the patient. The patient agreed to proceed with the procedure and signed the consent. IV was started, and vital signs were stable. Patient was taken to the procedure area, and time out was completed. The patient was placed in the prone position on procedure table and a pillow was placed under the abdomen to reduce lumbar lordosis. The lumbosacral area was prepped and draped in the usual sterile fashion. Critical pause was taken. Vital signs were closely monitored during the procedure. Using anterior-posterior fluoroscopy, the L5-S1 interlaminar space was identified, and skin and deeper tissues were localized with 1% lidocaine. Using anterior-posterior fluoroscopy, lateral fluoroscopy, and jxaj-gf-eynvcjudie technique, a 20 gauge 3.5 Tuohy epidural needle entered the epidural space. After negative aspiration of CSF and blood with no paresthesias, 2 ml of [id number] contrast dye was injected and an excellent epidurogram was seen. Again after negative aspiration of CSF and blood with no paresthesias, 6 mL of block solution was injected into the epidural space. Block solution contained 80 mg of Depo-Medrol, and 5 mL of preservative-free normal saline. Needle was withdrawn intact, skin was cleansed, and bandages were applied. COMPLICATIONS: None. DISPOSITION / PLANS: The patient was placed in a supine position and transferred to the recovery area in a stable condition for observation. Patient was discharged from the recovery room after meeting discharge criteria. Home discharge instructions given to the patient by the staff. The patient was reexamined prior to discharge. The patient will schedule a follow up in the clinic in 4 weeks.
[2022-11-09] MEDS ORDERED: IV FLUID CONTINUATION 1,000 ML IV ONE ×4 (09:18)
--- NOTE | 2022-11-09 09:41 | FL ---
Intraoperative/procedural fluoroscopic services were provided for lumbar epidural injection. Total fl uoroscopy time is 7 seconds with a total of 3 submitted images to PACS. Please see the operative note for further details.
[2022-11-09 10:00] VITALS: RESP 20
[2022-11-09 10:01] VITALS: BP 142/69; PULSE 63
== END 2022-11-09 09:58 | disposition home or self-care (01) ==
LOC: ORPAIN 08:12
DX: M51.16 Intervertebral disc disorders with radiculopathy, lumbar region (principal); M47.26 Other spondylosis with radiculopathy, lumbar region; I10 Essential (primary) hypertension; E78.00 Pure hypercholesterolemia, unspecified; I25.10 Atherosclerotic heart disease of native coronary artery without angina pectoris; I48.91 Unspecified atrial fibrillation; Z98.890 Other specified postprocedural states; Z95.5 Presence of coronary angioplasty implant and graft; Z96.659 Presence of unspecified artificial knee joint; Z88.5 Allergy status to narcotic agent; Z79.82 Long term (current) use of aspirin; Z79.01 Long term (current) use of anticoagulants; Z79.899 Other long term (current) drug therapy
CPT/HCPCS: 62323; 99152; J2250; J1040; J3010; Q9966

== ENCOUNTER → 2022-11-27 | Outpatient (CLI) | payer OTHER ==
[2022-11-27 10:05] VITALS: BP 134/90; PULSE 71; RESP 18; TEMP 97.9
--- NOTE | 2022-11-27 15:46 | P.PAINPG ---
PQRS Measure Charge Sheet Comment: A 87 yr old male w at side with a history of severe and chronic low back pain secondary to lumbar DDD and spondylosis with facet arthropathy without myelopathy presents today for evaluation s/p NORMAN L5-S1 #3. Pt states she experienced 75 % pain relief x 2 wks s/p procedure. Pain level is provoked at 8 /10 in intensity, constant, localized in the lumbar spine, sharp in character without shooting pain. Pain is provoked by extensive walking. Pain is alleviated with PT x 6 mo in 2021, meds (Tylenol #3), topicals, RLE stretching, repositioning and rest. Interventional pain procedures completed include NORMAN L5-S1 x3 Patient is currently on Tyl #3 Patient denies any side effects of the medication(s), denies excessive drowsiness or sleepiness, denies suicidal ideation and reports that the current pain medication is helping to control the pain and improve activities of daily living. Patient denies any motor or sensory deficits. Patient denies any fever or night sweats, denies any change in the bowel movements or urination. Physical Examination: -Constitutional: Cooperative. Not in acute distress . - Neurologic: Cranial nerve II to XII intact. No focal neurological deficits. - Psychatric: Alert & oriented x 3. Matching mood & appropriate affect. Judgment and insight intact. - Musculoskeletal: Cervical spine: Muscle bulk/ tone/ strength in the bilateral upper extremities normal Vertebral body tenderness to palpation over Spurling test positive Distraction test positive Facet loading test positive Thoracic spine Muscle bulk / tone/ strength in the bilateral paraspinal muscles normal Vertebral body tender to palpation over Facet loading test positive Lumbar spine: Motor bulk/ tone/ strength lower extremities , thigh and legs : 5/5 Deep tendon reflexes : Normal Knee Jerk. Normal Ankle Jerk . Vertebral body tenderness to palpation over Lumbar Facet Loading Test positive R paraspinal TTP over L2-S1 Straight Leg Raise: positive at 30 degrees right side/ left side Gaenslen's Test positive Sacral spine : Severe tenderness over the Sacroiliac joint: right side / left side Range of motion: Flexion of the lumbar spine <60 degrees Range of motion: Extension of the lumbar spine <20 degrees Gaenslen's Test positive Zack test: positive right side / left side Thigh Thrust Test Sacral Thrust Test Assessment and plan: Chronic low back pain secondary to lumbar degenerative disc disease, spondylosis with facet arthropathy without myelopathy Recommendation of R TPIs L2-S1. May need a series of injections for optimal pain relief. Risks, benefits of procedure discussed and pt verbalized understanding. Admits to anticoagulant use or medical history of diabetes. Protocol for discontinuation/ continuation of medications stone procedure discussed. All patient questions answered I have spent less than 30 minutes on patient care today. Dr Cardoso was available by phone for the evaluation of this patient. The time was used to review the medical records including relevant urine studies and Prescription history (MAPs), review of the available imaging, evaluation and examination of the patient, coordination of care with the medical staff and if applicable referring physicians, as well as creation of the medical record PQRS Narrative: Smoking Status Never smoker Hx Alcohol Use (MH) Yes: OCCASIONAL Home Medications: Ambulatory Orders Apixaban [Eliquis] 5 mg PO BID 02/27/17 Aspirin EC [Ecotrin Low Dose] 81 mg PO DAILY 02/27/17 Nitroglycerin Sl Tabs [Nitrostat] 0.4 mg SUBLINGUAL Q5M PRN #25 tab 03/01/17 Simvastatin [Zocor] 20 mg PO HS 03/02/18 Acetaminophen Tab [Tylenol Tab] 500 mg PO Q6H 10/06/19 Losartan [Cozaar] 25 mg PO BID 10/06/19 Multivitamins, Thera [Multivitamin (formulary)] 1 tab PO DAILY 07/05/22 Tamsulosin [Flomax] 0.4 mg PO DAILY 07/05/22 Finasteride [Proscar] 5 mg PO DAILY 09/05/22 Furosemide [Lasix] 20 mg PO DAILY PRN 09/05/22 Magnesium 200 mg PO DAILY 09/05/22 Zinc Gluconate [Zinc] 50 mg PO DAILY 09/05/22 Acetaminophen-Codeine 300-30mg [Tylenol w/codeine #3] 1 tab PO Q12H PRN 30 Days #60 tablet 10/11/22 Unk B Complex 1 tab PO DAILY 11/07/22 methocarbamoL [Robaxin] 500 mg PO TID PRN 30 Days #90 tab 11/27/22 Controlled Substance Measures - Controlled Substance Measures Is patient prescribed a controlled substance at discharge?: No
== END ==
LOC: PNWHC3 09:14
PROVIDERS: ATTEND Specialist
DX: M47.816 Spondylosis without myelopathy or radiculopathy, lumbar region (principal); G89.29 Other chronic pain; M51.36 Other intervertebral disc degeneration, lumbar region; Z79.82 Long term (current) use of aspirin; Z88.6 Allergy status to analgesic agent
CPT/HCPCS: 99211

== ENCOUNTER → 2023-02-27 | Outpatient (CLI) | payer OTHER ==
--- NOTE | 2023-02-27 13:46 | CT ---
EXAMINATION TYPE: CT chest wo con DATE OF EXAM: 02/27/2023 COMPARISON: 02/06/2022 HISTORY: 87-year-old male I71.20 TECHNIQUE: Contiguous axial scanning of the chest without IV contrast. Coronal and sagittal reconstru ctions performed. CT DLP: 668.70 mGycm Automated exposure control for dose reduction was used. FINDINGS: Small 7 mm subcutaneous/dermal nodule right paramedian anterior lower chest wall, probably a small se baceous cyst that could be correlated clinically. Heart moderately enlarged. No pericardial effusion. Three-vessel coronary artery calcifications are p resent in remarkable for coronary artery disease. Moderate gynecomastia seen on the right. Large caliber to the main right and left pulmonary arteries measuring up to 3.4 cm suggesting underly ing pulmonary arterial hypertension. No thoracic lymphadenopathy by CT size criteria. 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 Ascending aorta aneurysmal at 4.6 cm versus 4.5 cm, previously. Conventional arterial vessel branching anatomy. Upper descending thoracic aorta aneurysmal at 3.9 cm versus 3.8 cm, previously. Mid descending thoracic aorta aneurysmal 3.4 cm versus 3.3 cm, previously. Lower descending thoracic aorta is aneurysmal at 3.3 cm, unchanged. A few 5 mm smaller nodules right mid and lower lung remain unchanged. Strandy atelectasis and scarrin g at the left base is unchanged. Otherwise, no consolidation or pleural effusion. 3.1 cm exophytic cyst lateral right kidney. A few diverticula along the left side of the colon. Moderate degenerative disc disease mid to lower thoracic spine. IMPRESSION: 1. DIFFUSELY ANEURYSMAL THORACIC AORTA. SOME OF THE MEASUREMENTS ARE A FEW MILLIMETERS LARGER SUCH THE AORTIC ROOT AT 4.7 CM VERSUS 4.4 CM, PREVIOUSLY. UPPER DESCENDING THORACIC AORTA AT 3.9 CM VERSU S 3.8 MM, PREVIOUSLY. 2. MODERATE CARDIOMEGALY. CAD WITH 3 VESSEL CORONARY ARTERY CALCIFICATIONS. 3. SUSPECT UNDERLYING PULMONARY ARTERIAL HYPERTENSION. 4. STABLE INTERSTITIAL SCARRING AT THE LEFT BASE. A FEW PULMONARY NODULES MEASURING UP TO 5 MM ON THE RIGHT ALSO REMAIN UNCHANGED SUGGESTING A BENIGN ETIOLOGY.
== END | disposition home or self-care (01) ==
LOC: RADCTMAIN 11:58
PROVIDERS: ATTEND Surgery
DX: I71.20 Thoracic aortic aneurysm, without rupture, unspecified (principal); I25.10 Atherosclerotic heart disease of native coronary artery without angina pectoris; I51.7 Cardiomegaly; J98.4 Other disorders of lung
CPT/HCPCS: 71250

== ENCOUNTER 2023-03-29 07:55 | Emergency (ER) | payer OTHER ==
[2023-03-29 08:02] VITALS: PULSE 60; RESP 18; TEMP 97.6
--- NOTE | 2023-03-29 08:17 | ED ---
General Adult HPI - General Chief complaint: Recheck/Abnormal Lab/Rx Stated complaint: HTN Time Seen by Provider: 03/29/23 08:07 Source: patient, RN notes reviewed Mode of arrival: ambulatory Limitations: no limitations - History of Present Illness Initial comments: 87-year-old male presents emergency Department chief complaint of hypertension. Patient states that he's been monitoring his blood pressure has been elevated. Patient was at urgent care recent for no other blood pressure and they advised to come emergency Department if his ever over 180/90. Patient states as blood pressure was 200/100 states he did take an actual shortness morning as directed. Patient denies chest pain, headache, dizziness, shortness breath, nausea vomiting. Patient states he feels like his normal baseline he's had no recent changes otherwise. - Related Data Home Medications Medication Instructions Recorded Confirmed Apixaban [Eliquis] 5 mg PO BID 02/27/17 12/19/22 Aspirin EC [Ecotrin Low Dose] 81 mg PO DAILY 02/27/17 12/19/22 Simvastatin [Zocor] 20 mg PO HS 03/02/18 12/19/22 Acetaminophen Tab [Tylenol Tab] 500 mg PO BID 10/06/19 12/19/22 Losartan [Cozaar] 25 mg PO BID 10/06/19 12/19/22 Multivitamins, Thera [Multivitamin 1 tab PO DAILY 07/05/22 12/19/22 (formulary)] Tamsulosin [Flomax] 0.4 mg PO DAILY 07/05/22 12/19/22 Finasteride [Proscar] 5 mg PO DAILY 09/05/22 12/19/22 Previous Rx's Medication Instructions Recorded Nitroglycerin Sl Tabs [Nitrostat] 0.4 mg SUBLINGUAL Q5M PRN #25 tab 03/01/17 Acetaminophen-Codeine 300-30mg 1 tab PO Q12H PRN 30 Days #60 10/11/22 [Tylenol w/codeine #3] tablet Allergies Allergy/AdvReac Type Severity Reaction Status Date / Time papaverine [From Pavabid] Allergy Unknown Verified 03/29/23 08:02 Review of Systems ROS Statement: Those systems with pertinent positive or pertinent negative responses have been documented in the HPI. ROS Other: All systems not noted in ROS Statement are negative. Past Medical History Past Medical History: Atrial Fibrillation, Hearing Disorder / Deafness, Hyperlipidemia, Hypertension, Myocardial Infarction ([place]) Additional Past Medical History / Comment(s): Bilateral hearing aid use. Last Myocardial Infarction Date:: 2011 History of Any Multi-Drug Resistant Organisms: None Reported Past Surgical History: Heart Catheterization With Stent, Hernia Repair, Orthopedic Surgery Additional Past Surgical History / Comment(s): Left knee surgery, left ankle surgery, right shoulder surgery, pt thinks 1 or 2 stents not sure in what vessel. pain clinic Past Anesthesia/Blood Transfusion Reactions: No Reported Reaction Date of Last Stent Placement:: 2011 Past Psychological History: No Psychological Hx Reported Smoking Status: Former smoker Past Alcohol Use History: None Reported Past Drug Use History: None Reported - Past Family History Father Family Medical History: Cancer Mother Family Medical History: Cancer General Exam Limitations: no limitations General appearance: alert, in no apparent distress Head exam: Present: atraumatic, normocephalic, normal inspection Eye exam: Present: normal appearance, PERRL, EOMI. Absent: scleral icterus, conjunctival injection, periorbital swelling ENT exam: Present: normal exam, mucous membranes moist Neck exam: Present: normal inspection, full ROM. Absent: tenderness, meningismus, lymphadenopathy Respiratory exam: Present: normal lung sounds bilaterally. Absent: respiratory distress, wheezes, rales, rhonchi, stridor Cardiovascular Exam: Present: regular rate, normal rhythm, normal heart sounds. Absent: systolic murmur, diastolic murmur, rubs, gallop, clicks GI/Abdominal exam: Present: soft, normal bowel sounds. Absent: distended, tenderness, guarding, rebound, rigid Course Vital Signs 03/29/23 03/29/23 03/29/23 07:57 09:03 09:45 Temperature 97.6 F Pulse Rate 60 Respiratory 18 Rate Blood Pressure 181/84 160/101 165/92 O2 Sat by Pulse 97 Oximetry EKG Findings - EKG Comments: EKG Findings:: EKG performed at 8:24 A. fib slow ventricular response rate of 52 QRS 80 QT/QTC 409/390 - EKG Results: EKG: interpreted by NISREEN Medical Decision Making - Medical Decision Making Was pt. sent in by a medical professional or institution (, PA, ATTENDANT ARCADE, urgent care, hospital, or senior care...) When possible be specific @ -[No] Did you speak to anyone other than the patient for history (EMS, parent, family, police, friend...)? What history was obtained from this source @ -[No] Did you review nursing and triage notes (agree or disagree)? Why? @ -[I reviewed and agree with nursing and triage notes] Were old charts reviewed (outside hosp., previous admission, EMS record, old EKG, old radiological studies, urgent care reports/EKG's, senior care records)? Report findings @ -[No old charts were reviewed] Differential Diagnosis (chest pain, altered mental status, abdominal pain women, abdominal pain men, vaginal bleeding, weakness, fever, dyspnea, syncope, headache, dizziness, GI bleed, back pain, seizure, CVA, palpatations, mental health, musculoskeletal)? @ -[HTN HTN emergency, renal failure] EKG interpreted by me (3pts min.). @ -[As above] X-rays interpreted by me (1pt min.). @ -[None done] CT interpreted by me (1pt min.). @ -[None done] U/S interpreted by me (1pt. min.). @ -[None done] What testing was considered but not performed or refused? (CT, X-rays, U/S, labs)? Why? @ -[None] What meds were considered but not given or refused? Why? @ -[None] Did you discuss the management of the patient with other professionals (professionals i.e. , PA, ATTENDANT [employer], lab, RT, psych nurse, social sciences department chair, business lawyer, teacher, staff combat information center officer, employment case manager)? Give summary @ -[No] Was smoking cessation discussed for >3mins.? @ -[No] Was critical care preformed (if so, how long)? @ -[No] Were there social determinants of health that impacted care today? How? (Homelessness, low income, unemployed, alcoholism, drug addiction, transportation, low edu. Level, literacy, decrease access to med. care, usp, rehab)? @ -[No] Was there de-escalation of care discussed even if they declined (Discuss DNR or withdrawal of care, Hospice)? DNR status @ -[No] What co-morbidities impacted this encounter? (DM, HTN, Smoking, COPD, CAD, Cancer, CVA, ARF, Chemo, Hep., AIDS, mental health diagnosis, sleep apnea, morbid obesity)? @ -[HTN] Was patient admitted / discharged? Hospital course, mention meds given and route, prescriptions, significant lab abnormalities, going to OR and other pertinent info. @ -[discharged patients BP is improved lans unremarkable and advised to follow up with PCP for medication adjustment] Undiagnosed new problem with uncertain prognosis? @ -[No] Drug Therapy requiring intensive monitoring for toxicity (Heparin, Nitro, Insulin, Cardizem)? @ -[No] Were any procedures done? @ -[No] Diagnosis/symptom? @ -[hypertension] Acute, or Chronic, or Acute on Chronic? @ -[acute] Uncomplicated (without systemic symptoms) or Complicated (systemic symptoms)? @ -[uncomplicated] Side effects of treatment? @ -[No] Exacerbation, Progression, or Severe Exacerbation? @ -[No] Poses a threat to life or bodily function? How? (Chest pain, [place], [place], pneumonia, PE, COPD, DKA, ARF, appy, cholecystitis, CVA, Diverticulitis, Homicidal, Suicidal, threat to staff... and all critical care pts) @ -[No] - Lab Data Result diagrams: 03/29/23 08:29 03/29/23 08:29 Lab Results 03/29/23 03/29/23 Range/Units 08:29 08:29 WBC 6.5 (3.8-10.6) k/uL RBC 4.76 (4.30-5.90) m/uL Hgb 14.3 (13.0-17.5) gm/dL Hct 44.8 (39.0-53.0) % MCV 94.2 (80.0-100.0) fL MCH 30.0 (25.0-35.0) pg MCHC 31.9 (31.0-37.0) g/dL RDW 12.7 (11.5-15.5) % Plt Count 214 (150-450) k/uL MPV 8.4 Neutrophils % 74 % Lymphocytes % 17 % Monocytes % 4 % Eosinophils % 3 % Basophils % 0 % Neutrophils # 4.9 (1.3-7.7) k/uL Lymphocytes # 1.1 (1.0-4.8) k/uL Monocytes # 0.3 (0-1.0) k/uL Eosinophils # 0.2 (0-0.7) k/uL Basophils # 0.0 (0-0.2) k/uL Sodium 138 (137-145) mmol/L Potassium 4.3 (3.5-5.1) mmol/L Chloride 102 (98-107) mmol/L Carbon Dioxide 26 (22-30) mmol/L Anion Gap 10 mmol/L BUN 27 H (9-20) mg/dL Creatinine 0.82 (0.66-1.25) mg/dL Est GFR (CKD-EPI)AfAm >90 (>60 ml/min/1.73 sqM) Est GFR (CKD-EPI)NonAf 80 (>60 ml/min/1.73 sqM) Glucose 109 H (74-99) mg/dL Calcium 9.1 (8.4-10.2) mg/dL Total Bilirubin 0.4 (0.2-1.3) mg/dL AST 23 (17-59) U/L ALT 18 (4-49) U/L Alkaline Phosphatase 61 (38-126) U/L Total Protein 6.5 (6.3-8.2) g/dL Albumin 3.8 (3.5-5.0) g/dL Disposition Clinical Impression: Asymptomatic hypertension Disposition: HOME SELF-CARE Condition: Stable Instructions (If sedation given, give patient instructions): Hypertension (ED) Additional Instructions: Please return to the Emergency Department if symptoms worsen or any other concerns. Is patient prescribed a controlled substance at d/c from ED?: No Referrals: [facility],Clinic [Primary Care Provider] - 1-2 days Time of Disposition: 09:47
[2023-03-29 08:49] LABS: Basophils % (A) 0 %; Eosinophils # (A) 0.2 k/uL (0-0.7); Eosinophils % (A) 3 %; HCT 44.8 % (39.0-53.0); HGB 14.3 gm/dL (13.0-17.5); Lymphocytes # (A) 1.1 k/uL (1.0-4.8); Lymphocytes % (A) 17 %; MCHC 31.9 g/dL (31.0-37.0); MCV 94.2 fL (80.0-100.0); Mean Platelet Volume 8.4; Monocytes # (A) 0.3 k/uL (0-1.0); Monocytes % (A) 4 %; Neutrophils # (A) 4.9 k/uL (1.3-7.7); Neutrophils % (A) 74 %; Platelet Count 214 k/uL (150-450); RBC 4.76 m/uL (4.30-5.90); RDW 12.7 % (11.5-15.5); WBC 6.5 k/uL (3.8-10.6)
[2023-03-29 09:15] LABS: ALT 18 U/L (4-49); AST 23 U/L (17-59); African American GFR (CKD) >90 (>60 ml/min/1.73 sqM); Albumin 3.8 g/dL (3.5-5.0); Alkaline Phosphatase 61 U/L (38-126); Anion Gap 10 mmol/L; Blood Urea Nitrogen 27 mg/dL (9-20); Calcium 9.1 mg/dL (8.4-10.2); Carbon Dioxide 26 mmol/L (22-30); Chloride 102 mmol/L (98-107); Glucose 109 mg/dL (74-99); Non-African American GFR(CKD) 80 (>60 ml/min/1.73 sqM); Potassium 4.3 mmol/L (3.5-5.1); Sodium 138 mmol/L (137-145); Total Bilirubin 0.4 mg/dL (0.2-1.3); Total Protein 6.5 g/dL (6.3-8.2)
[2023-03-29 09:45] VITALS: BP 165/92
== END 2023-03-29 10:10 | disposition home or self-care (01) ==
LOC: EC 07:55
DX: I10 Essential (primary) hypertension (principal); I48.91 Unspecified atrial fibrillation; E78.5 Hyperlipidemia, unspecified; I25.2 Old myocardial infarction; Z87.891 Personal history of nicotine dependence; Z79.01 Long term (current) use of anticoagulants; Z79.82 Long term (current) use of aspirin; Z79.899 Other long term (current) drug therapy; Z88.8 Allergy status to other drugs, medicaments and biological substances
CPT/HCPCS: 36415; 80053; 85025; 93005; 99283

== ENCOUNTER → 2024-02-20 | Outpatient (CLI) | payer OTHER ==
--- NOTE | 2024-02-24 22:07 | CT ---
EXAMINATION TYPE: CT chest wo con DATE OF EXAM: 02/20/2024 COMPARISON: 02/27/2023 HISTORY: 88-year-old male F/U THORACIC AORTIC ANEURYSM, no contrast TECHNIQUE: Contiguous axial scanning of the chest without IV contrast Coronal/sagittal reconstruction s performed. CT DLP: 677mGycm. Automatic exposure control utilized for a dose reduction. FINDINGS: There is a 1.3 cm subcutaneous nodule just deep to the skin surface right paramedian anterior mid to lower chest. Mild surrounding fat stranding. Consider an inflamed sebaceous cyst. Previously measured 7 mm. Asymmetric moderate right-sided gynecomastia. Heart borderline enlarged without pericardial effusion. Extensive LAD and lesser degree of RCA and ci rcumflex coronary artery calcifications are present. Aneurysm aortic root 4.5 cm versus 4.7 cm, previously. Aneurysm ascending aorta 4.6 cm, unchanged. Aneurysm upper descending thoracic aorta 3.8 cm, versus 3.9 cm, previously. Conventional arch was a branching anatomy. Lower descending thoracic aorta 3.3 cm versus 3.2 cm, previously. A few scattered bilateral 4 mm smaller pulmonary nodules remain unchanged. No consolidation or pleura l effusion. Mild diffuse bronchial wall thickening. Strandy scarring or atelectasis at the lung bases . Visualized upper abdomen shows an exophytic cyst lateral right kidney measuring at least 3.4 cm, part ially visualized. Scattered [id number] stool. Bones: There is moderate degenerative disc disease lower thoracic spine. IMPRESSION: 1. Similar aneurysmal thoracic aorta (root 4.5 cm, ascending 4.6 cm, upper descending 3.8 cm, and low er descending 3.3 cm). No significant change. 2. Correlate for a 1.3 cm inflamed sebaceous cyst right paramedian anterior mid to lower S1. 3. Mild bronchial wall thickening could reflect bronchitis or asthma. A few scattered 4 mm and smalle r pulmonary nodules remain unchanged suggesting a benign etiology. 4. Coronary artery disease with extensive LAD calcifications.
== END | disposition home or self-care (01) ==
LOC: RADCTMAIN 12:47
PROVIDERS: ATTEND Surgery
DX: I71.20 Thoracic aortic aneurysm, without rupture, unspecified (principal); R91.8 Other nonspecific abnormal finding of lung field; I25.10 Atherosclerotic heart disease of native coronary artery without angina pectoris
CPT/HCPCS: 71250

== ENCOUNTER 2024-03-14 12:34 | Inpatient (IN) | payer OTHER, MEDICARE ==
[2024-03-14 12:56] LABS: Glucose,Whole Blood 108 mg/dL (70-110)
--- NOTE | 2024-03-14 12:59 | ED ---
General Adult HPI - General Chief complaint: Chest Pain Stated complaint: AFIB Time Seen by Provider: 03/14/24 12:37 Source: family, EMS Mode of arrival: EMS - History of Present Illness Initial comments: Dictation was produced using [employer] dictation software. please excuse any gram matical, word or spelling errors. Chief Complaint: 88-year-old male presents emergency department for bradycardia History of Present Illness: Patient is 88-year-old male presents emergency department for bradycardia. He initially went to the urgent care for headache. Prior to going to the urgent care he took some Tylenol. Since being in the emergency department states that his headache is completely resolved. Patient states that he feels a little drowsy from taking Tylenol. He was seen at urgent care and was found to have a heart rate that was as low as 30s. He was brought to the emergency department via EMS because of that. Patient has no chest pain. No shortness of breath. No lightheadedness. Patient has history of A-fib takes anticoagulation medications along with beta-blockers. The ROS documented in this emergency department record has been reviewed and confirmed by me. Those systems with pertinent positive or negative responses have been documented in the HPI. All other systems are other negative and/or noncontributory. - Related Data Home Medications Medication Instructions Recorded Confirmed Apixaban [Eliquis] 5 mg PO BID 02/27/17 12/19/22 Aspirin EC [Ecotrin Low Dose] 81 mg PO DAILY 02/27/17 12/19/22 Simvastatin [Zocor] 20 mg PO HS 03/02/18 12/19/22 Acetaminophen Tab [Tylenol Tab] 500 mg PO BID 10/06/19 12/19/22 Losartan [Cozaar] 25 mg PO BID 10/06/19 12/19/22 Multivitamins, Thera [Multivitamin 1 tab PO DAILY 07/05/22 12/19/22 (formulary)] Tamsulosin [Flomax] 0.4 mg PO DAILY 07/05/22 12/19/22 Finasteride [Proscar] 5 mg PO DAILY 09/05/22 12/19/22 Previous Rx's Medication Instructions Recorded Nitroglycerin Sl Tabs [Nitrostat] 0.4 mg SUBLINGUAL Q5M PRN #25 tab 03/01/17 Acetaminophen-Codeine 300-30mg 1 tab PO Q12H PRN 30 Days #60 10/11/22 [Tylenol w/codeine #3] tablet Allergies Allergy/AdvReac Type Severity Reaction Status Date / Time papaverine [From Pavabid] Allergy Unknown Verified 03/14/24 12:46 Review of Systems ROS Statement: Those systems with pertinent positive or pertinent negative responses have been documented in the HPI. ROS Other: All systems not noted in ROS Statement are negative. Past Medical History Past Medical History: Atrial Fibrillation, Hearing Disorder / Deafness, Hyperlipidemia, Hypertension, Myocardial Infarction ([place]) Additional Past Medical History / Comment(s): Bilateral hearing aid use. Last Myocardial Infarction Date:: 2011 History of Any Multi-Drug Resistant Organisms: None Reported Past Surgical History: Heart Catheterization With Stent, Hernia Repair, Orthopedic Surgery Additional Past Surgical History / Comment(s): Left knee surgery, left ankle surgery, right shoulder surgery, pt thinks 1 or 2 stents not sure in what vessel. pain clinic Past Anesthesia/Blood Transfusion Reactions: No Reported Reaction Date of Last Stent Placement:: 2011 Past Psychological History: No Psychological Hx Reported Smoking Status: Former smoker Past Alcohol Use History: None Reported Past Drug Use History: None Reported - Past Family History Father Family Medical History: Cancer Mother Family Medical History: Cancer General Exam - General Exam Comments Initial Comments: PHYSICAL EXAM: General Impression: Alert and oriented x3, not in acute distress HEENT: Normocephalic atraumatic, extra-ocular movements intact, pupils equal and reactive to light bilaterally, mucous membranes moist. Cardiovascular: Slow rate Chest: Able to complete full sentences, no retractions, no tachypnea Abdomen: abdomen soft, non-tender, non-distended, no organomegaly Musculoskeletal: Pulses present and equal in all extremities, no peripheral edema Motor: no focal deficits noted Neurological: CN II-XII grossly intact, no focal motor or sensory deficits noted Skin: Intact with no visualized rashes Psych: Normal affect and mood Course Vital Signs 03/14/24 03/14/24 03/14/24 12:36 12:47 13:35 Temperature 97.6 F Pulse Rate 44 L 44 L Pulse Rate [ 45 L Structural Steel Engineer ] Respiratory 17 18 Rate Blood Pressure 158/96 146/94 O2 Sat by Pulse 97 95 Oximetry 03/14/24 03/14/24 13:52 14:03 Temperature 97.4 F L Pulse Rate 55 L 57 L Pulse Rate [ Structural Steel Engineer ] Respiratory 17 Rate Blood Pressure 158/90 O2 Sat by Pulse 95 Oximetry EKG Findings - EKG Comments: EKG Findings:: My EKG interpretation: Ventricular rate 46, A-fib with slow ventricular response, QRS 90, QTc 431. No VA prolongation, no QTC prolongation, no ST or T-wave changes noted. Medical Decision Making - Medical Decision Making Was pt. sent in by a medical professional or institution (, [facility], CAFE SITE ATTENDANT, urgent care, hospital, or residential...) When possible be specific @ -Sent in from urgent care Did you speak to anyone other than the patient for history (EMS, parent, family, police, friend...)? What history was obtained from this source @ -Discussed with EMS and as described above Did you review nursing and triage notes (agree or disagree)? Why? @ -I reviewed and agree with nursing and triage notes Were old charts reviewed (outside hosp., previous admission, EMS record, old EKG, old radiological studies, urgent care reports/EKG's, residential records)? Report findings @ -No old charts were reviewed Differential Diagnosis (chest pain, altered mental status, abdominal pain women, abdominal pain men, vaginal bleeding, musculoskeletal, weakness, fever, dyspnea, syncope, headache, dizziness, GI bleed, back pain, seizure, CVA, palpatations, mental health)? @ -Differential Headache: Migraine, tension, cluster, carbon monoxide, central venous thrombosis, pension karma temporal arteritis, acute closure glaucoma, intercranial hemorrhage, mastoiditis, sinusitis, head injury, this is not meant to be an all-inclusive list. EKG interpreted by me (3pts min.). @ -See above X-rays interpreted by me (1pt min.). @ -This x-ray shows no acute processes CT interpreted by me (1pt min.). @ -None done U/S interpreted by me (1pt. min.). @ -None done What testing was considered but not performed or refused? (CT, X-rays, U/S, labs)? Why? @ -None What meds were considered but not given or refused? Why? @ -None Did you discuss the management of the patient with other professionals (professionals i.e. , [facility], CAFE SITE ATTENDANT, lab, RT, psych nurse, social media project manager, damper maker, teacher, real estate loan officer, counter caser)? Give summary @ -Case discussed with hospitalist for admission Was smoking cessation discussed for >3mins.? @ -No Was critical care preformed (if so, how long)? @ -Yes, 33 minutes Were there social determinants of health that impacted care today? How? (Homelessness, low income, unemployed, alcoholism, drug addiction, transportation, low edu. Level, literacy, decrease access to med. care, residential, rehab)? @ -No Was there de-escalation of care discussed even if they declined (Discuss DNR or withdrawal of care, Hospice)? DNR status @ -No What co-morbidities impacted this encounter? (DM, HTN, Smoking, COPD, CAD, Cancer, CVA, ARF, Chemo, Hep., AIDS, mental health diagnosis, sleep apnea, mor bid obesity)? @ -A-fib on metoprolol Was patient admitted / discharged? Hospital course, mention meds given and route, prescriptions, significant lab abnormalities, going to OR and other pertinent info. @ -88-year-old male presents emergency department for bradycardia. He initially presented to the urgent care for chief complaint of headache. Patient states his headache is completely resolved. Vital signs upon arrival shows heart rate of 44. He was connected to the dump truck operator and got to as low as 31 bpm. Patient's blood pressure however remained stable. Laboratory evaluation obtained. CBC, coag panel metabolic panel is within acceptable limits. Troponin is negative. Patient given atropine with improvement of his heart rate into the 50s. Patient reevaluated bedside at 2:18 PM found to be stable medical addition. He is agreeable with admission with consultation to cardiology. Undiagnosed new problem with uncertain prognosis? @ -No Drug Therapy requiring intensive monitoring for toxicity (Heparin, Nitro, Insulin, Cardizem)? @ -No Were any procedures done? @ -No Diagnosis/symptom? Acute, or Chronic, or Acute on Chronic? Uncomplicated (without systemic symptoms) or Complicated (systemic symptoms)? @ -Bradycardia Side effects of treatment? @ -No Exacerbation, Progression, or Severe Exacerbation? @ -No Poses a threat to life or bodily function? How? (Chest pain, [place], [place], pneumonia, PE, COPD, DKA, ARF, appy, cholecystitis, CVA, Diverticulitis, Homicidal, Kindra cidal, threat to staff... and all critical care pts) @ -yes - Lab Data Result diagrams: 03/14/24 13:34 03/14/24 13:34 Lab Results 03/14/24 03/14/24 03/14/24 Range/Units 12:54 13:34 13:34 WBC 6.4 (3.8-10.6) k/uL RBC 4.48 (4.30-5.90) m/uL Hgb 13.4 (13.0-17.5) gm/dL Hct 42.4 (39.0-53.0) % MCV 94.7 (80.0-100.0) fL MCH 29.9 (25.0-35.0) pg MCHC 31.6 (31.0-37.0) g/dL RDW 13.1 (11.5-15.5) % Plt Count 196 (150-450) k/uL MPV 8.9 Neutrophils % 71 % Lymphocytes % 20 % Monocytes % 6 % Eosinophils % 2 % Basophils % 1 % Neutrophils # 4.5 (1.3-7.7) k/uL Lymphocytes # 1.2 (1.0-4.8) k/uL Monocytes # 0.4 (0-1.0) k/uL Eosinophils # 0.1 (0-0.7) k/uL Basophils # 0.0 (0-0.2) k/uL PT 11.4 (10.0-12.5) sec INR 1.0 (<1.2) APTT 25.1 (22.0-30.0) sec Sodium (137-145) mmol/L Potassium (3.5-5.1) mmol/L Chloride (98-107) mmol/L Carbon Dioxide (22-30) mmol/L Anion Gap mmol/L BUN (9-20) mg/dL Creatinine (0.66-1.25) mg/dL Est GFR (CKD-EPI)AfAm (>60 ml/min/1.73 sqM) Est GFR (CKD-EPI)NonAf (>60 ml/min/1.73 sqM) Glucose (74-99) mg/dL POC Glucose (mg/dL) 108 (70-110) mg/dL POC Glu Independent Sales Representative ID Joellen Lombardi Calcium (8.4-10.2) mg/dL Magnesium (1.6-2.3) mg/dL Total Bilirubin (0.2-1.3) mg/dL AST (17-59) U/L ALT (4-49) U/L Alkaline Phosphatase (38-126) U/L Troponin I (0.000-0.034) ng/mL Total Protein (6.3-8.2) g/dL Albumin (3.5-5.0) g/dL 03/14/24 03/14/24 Range/Units 13:34 13:34 WBC (3.8-10.6) k/uL RBC (4.30-5.90) m/uL Hgb (13.0-17.5) gm/dL Hct (39.0-53.0) % MCV (80.0-100.0) fL MCH (25.0-35.0) pg MCHC (31.0-37.0) g/dL RDW (11.5-15.5) % Plt Count (150-450) k/uL MPV Neutrophils % % Lymphocytes % % Monocytes % % Eosinophils % % Basophils % % Neutrophils # (1.3-7.7) k/uL Lymphocytes # (1.0-4.8) k/uL Monocytes # (0-1.0) k/uL Eosinophils # (0-0.7) k/uL Basophils # (0-0.2) k/uL PT (10.0-12.5) sec INR (<1.2) APTT (22.0-30.0) sec Sodium 138 (137-145) mmol/L Potassium 4.6 (3.5-5.1) mmol/L Chloride 108 H (98-107) mmol/L Carbon Dioxide 24 (22-30) mmol/L Anion Gap 6 mmol/L BUN 20 (9-20) mg/dL Creatinine 0.78 (0.66-1.25) mg/dL Est GFR (CKD-EPI)AfAm >90 (>60 ml/min/1.73 sqM) Est GFR (CKD-EPI)NonAf 81 (>60 ml/min/1.73 sqM) Glucose 101 H (74-99) mg/dL POC Glucose (mg/dL) (70-110) mg/dL POC Glu Independent Sales Representative ID Calcium 9.1 (8.4-10.2) mg/dL Magnesium 2.0 (1.6-2.3) mg/dL Total Bilirubin 0.8 (0.2-1.3) mg/dL AST 28 (17-59) U/L ALT 18 (4-49) U/L Alkaline Phosphatase 57 (38-126) U/L Troponin I <0.012 (0.000-0.034) ng/mL Total Protein 6.3 (6.3-8.2) g/dL Albumin 3.4 L (3.5-5.0) g/dL Disposition Clinical Impression: Bradycardia Disposition: ADMITTED IP TO THIS HOSP Condition: Serious Referrals: [facility],Clinic [Primary Care Provider] - 1-2 days Decision Time: 14:19
[2024-03-14] MEDS: ATROPINE SULFATE 0.1 MG/ML 10ML SYRINGE IV STA (13:38)
[2024-03-14 13:40] LABS: Basophils % (A) 1 %; Eosinophils # (A) 0.1 k/uL (0-0.7); Eosinophils % (A) 2 %; HCT 42.4 % (39.0-53.0); HGB 13.4 gm/dL (13.0-17.5); Lymphocytes # (A) 1.2 k/uL (1.0-4.8); Lymphocytes % (A) 20 %; MCH 29.9 pg (25.0-35.0); MCHC 31.6 g/dL (31.0-37.0); MCV 94.7 fL (80.0-100.0); Mean Platelet Volume 8.9; Monocytes # (A) 0.4 k/uL (0-1.0); Monocytes % (A) 6 %; Neutrophils # (A) 4.5 k/uL (1.3-7.7); Neutrophils % (A) 71 %; Platelet Count 196 k/uL (150-450); RBC 4.48 m/uL (4.30-5.90); RDW 13.1 % (11.5-15.5); WBC 6.4 k/uL (3.8-10.6)
[2024-03-14 13:52] LABS: ALT 18 U/L (4-49); African American GFR (CKD) >90 (>60 ml/min/1.73 sqM); Anion Gap 6 mmol/L; Blood Urea Nitrogen 20 mg/dL (9-20); Calcium 9.1 mg/dL (8.4-10.2); Carbon Dioxide 24 mmol/L (22-30); Chloride 108 mmol/L (98-107); Glucose 101 mg/dL (74-99); Non-African American GFR(CKD) 81 (>60 ml/min/1.73 sqM); Sodium 138 mmol/L (137-145); Total Bilirubin 0.8 mg/dL (0.2-1.3)
[2024-03-14 13:53] LABS: AST 28 U/L (17-59); Alkaline Phosphatase 57 U/L (38-126); Potassium 4.6 mmol/L (3.5-5.1)
[2024-03-14 13:54] LABS: Albumin 3.4 g/dL (3.5-5.0); Partial Thromboplastin Time 25.1 sec (22.0-30.0); Prothrombin Time 11.4 sec (10.0-12.5); Total Protein 6.3 g/dL (6.3-8.2)
--- NOTE | 2024-03-14 14:06 | XR ---
EXAMINATION TYPE: XR chest 2V DATE OF EXAM: 03/14/2024 COMPARISON: NONE TECHNIQUE: PA and lateral views submitted. HISTORY: Hypotension and bradycardia with chest pain FINDINGS: The lungs are clear and there is no pneumothorax, pleural effusion, or focal pneumonia. Heart size normal and no overt failure. Osseous structures demonstrate hypertrophic and degenerative changes of the spine. Atherosclerotic change and ectasia of the aorta. Mild cardiomegaly. 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 Diffuse osteopenia with arthropathy of the shoulders. Degenerative change of the spine. IMPRESSION: 1. No acute process.
[2024-03-14] MEDS ORDERED: NALOXONE 0.4 MG/ML 1 ML VIAL IV PRN (14:19)
[2024-03-14] MEDS: SODIUM CHLORIDE 0.9% 1,000 ML IV SCH (14:36)
[2024-03-14] MEDS ORDERED: ACETAMINOPHEN TAB 325 MG TAB PO PRN (17:25)
[2024-03-14] MEDS ORDERED: MELATONIN 3 MG TABLET PO PRN (17:25)
[2024-03-14] MEDS ORDERED: ONDANSETRON 4 MG/2 ML VIAL IVP PRN (17:25)
--- NOTE | 2024-03-14 17:33 | P.HPIM ---
History of Present Illness H&P Date: 03/14/24 Chief Complaint: headache Patient is a an 88-year-old man with history of atrial fibrillation anticoagulated with Eliquis, hypertension, dyslipidemia, and impaired hearing who presented from the urgent care due to bradycardia. Patient had gone to urgent care due to headache was found to have a heart rate in the 30s. On arrival to the ER he was found to be bradycardic with a heart rate of 44. Blood pressure was normal. In the ER his heart rate got as low as the 30s. They administered 1 dose of atropine 0.5 mg and his heart rate went up to the 50s. Initial laboratory analysis consisted of CBC, coags, and CMP which were unremarkable. Initial checks x-ray showed no acute process. Patient was admitted and cardiology was consulted. Patient seen and examined at bedside. He reports that yesterday he felt tired and fatigued and was having some difficulty. He also had an unusual feeling in the front of his face. Today he was not feeling well and felt kind of dizzy or foggy and his took his blood pressure at home his heart rate was 42 and blood pressure was 101/56. They proceeded to the urgent care because he was having a headache that was behind his eyes and his forehead. At urgent care he was noted to have a heart rate in the 30s he was therefore recommended to go to the emergency department. He denies any chest pain, palpitations, shortness of breath. He does report feeling slightly lightheaded when standing. Him and his report that he has had increased fatigue recently. He states he is felt very tired for the last 2 days. They believe metoprolol may be a newer medication being started in the last several [facility]. He also recently tried tramadol but did not tolerate this well and was then transition back to pregabalin. His has not been giving it to him every day as she has noted it is made him sedated. Vital signs reviewed General: nontoxic, no distress, appears at stated age Derm: warm, dry Eyes: EOMI, no lid lag, anicteric sclera, pupils equal round reactive to light ENT: Nose and ears atraumatic Cardiovascular: S1S2 reg, no murmur, no edema Lungs: clear to auscultation bilateral, no rhonchi, no rales, no wheeze, no accessory muscle use Abdominal: soft, nontender to palpation, no guarding Ext: no gross muscle atrophy, no contractures Neuro: CN II-XII grossly intact, No focal neuro deficits Psych: Alert, oriented, appropriate affect Assessment/Plan: Symptomatic bradycardia Chronic A-fib HTN HLD -Hold metoprolol -Telemetry -Status post 0.5 mg of atropine x 1 -Consult cardiology -Check echocardiogram -With patient's blood pressure being low this afternoon will hold cozaar and monitor closely - Eliquis 5 mg PO BID Chronic Low back pain - hold rafiq - Tylenol 650 mg PO q6 hours prn pain Hard of Hearing Imaging: EKG is reviewed by myself demonstrates bradycardia possible A-fib with slow ventricular response but difficult to determine P waves at a rate of 46. Data Review: As per HPI The patient is admitted with an anticipated greater than 2 midnight stay for evaluation of [Bradycardia]. Surrogate decision-maker: CODE STATUS: Full DVT prophylaxis: Eliquis Anticipated discharge date: Pending Clinical Course Anticipated discharge place: Pending Clinical Course This dictation was prepared using [employer] voice recognition software. Though every attempt is made to correct errors during dictation some may still exist. Past Medical History Past Medical History: Atrial Fibrillation, Hearing Disorder / Deafness, Hyperlipidemia, Hypertension, Myocardial Infarction ([place]) Additional Past Medical History / Comment(s): Bilateral hearing aid use. Last Myocardial Infarction Date:: 2011 History of Any Multi-Drug Resistant Organisms: None Reported Past Surgical History: Heart Catheterization With Stent, Hernia Repair, Orthopedic Surgery Additional Past Surgical History / Comment(s): Left knee surgery, left ankle eloisa wallace, right shoulder surgery, pt thinks 1 or 2 stents not sure in what vessel. pain clinic Past Anesthesia/Blood Transfusion Reactions: No Reported Reaction Date of Last Stent Placement:: 2011 Past Psychological History: No Psychological Hx Reported Smoking Status: Former smoker Past Alcohol Use History: None Reported Past Drug Use History: None Reported - Past Family History Father Family Medical History: Cancer Mother Family Medical History: Cancer Medications and Allergies Home Medications Medication Instructions Recorded Confirmed Type Aspirin EC [Ecotrin Low Dose] 81 mg PO DAILY 02/27/17 03/14/24 History Acetaminophen Tab [Tylenol Tab] 500 mg PO Q6H PRN 10/06/19 03/14/24 History Multivitamins, Thera [Multivitamin 1 tab PO DAILY 07/05/22 03/14/24 History (formulary)] Tamsulosin [Flomax] 0.4 mg PO AC-SUPPER 07/05/22 03/14/24 History Finasteride [Proscar] 5 mg PO BID 09/05/22 03/14/24 History Apixaban [Eliquis] 5 mg PO BID 03/14/24 03/14/24 History Atorvastatin [Lipitor] 20 mg PO HS 03/14/24 03/14/24 History Losartan [Cozaar] 50 mg PO DAILY 03/14/24 03/14/24 History Metoprolol Tartrate [Lopressor] 12.5 mg PO BID 03/14/24 03/14/24 History Pregabalin [Lyrica] 150 mg PO BID 03/14/24 03/14/24 History Vitamin B Complex 1 cap PO DAILY 03/14/24 03/14/24 History Zinc 30mg 30 mg PO DAILY 03/14/24 03/14/24 History Allergies Allergy/AdvReac Type Severity Reaction Status Date / Time papaverine [From Pavabid] AdvReac liver Verified 03/14/24 16:33 issues, turned yellow Physical Exam Osteopathic Statement: *. No significant issues noted on an osteopathic structural exam other than those noted in the History and Physical/Consult. Vitals: Vital Signs Temp Pulse Pulse Resp BP Pulse Ox 03/14/24 16:10 97.6 F 55 L 17 158/93 98 03/14/24 15:20 50 L 18 168/107 100 03/14/24 14:03 97.4 F L 57 L 17 158/90 95 03/14/24 13:52 55 L 03/14/24 13:35 44 L 18 146/94 95 03/14/24 12:47 45 L 03/14/24 12:36 97.6 F 44 L 17 158/96 97 Intake and Output 03/14/24 03/14/24 03/14/24 06:59 14:59 22:59 Other: Weight 111.7 kg Results CBC & Chem 7: 03/14/24 13:34 03/14/24 13:34 Labs: Abnormal Lab Results - Last 24 Hours (Table) 03/14/24 Range/Units 13:34 Chloride 108 H (98-107) mmol/L Glucose 101 H (74-99) mg/dL Albumin 3.4 L (3.5-5.0) g/dL
[2024-03-14] MEDS: TAMSULOSIN 0.4 MG CAP.ER.24H PO SCH (17:50)
[2024-03-14] MEDS: ATORVASTATIN 20 MG TAB PO SCH (21:20)
[2024-03-14] MEDS: FINASTERIDE 5 MG TAB PO SCH (21:20)
[2024-03-14] MEDS: APIXABAN 5 MG TAB PO SCH (21:20)
[2024-03-15 04:45] VITALS: RESP 18
[2024-03-15] MEDS ORDERED: NON FORMULARY DRUG (Vitamin B Complex [Vitamin B Complex] 1 EACH Capsule) PO SCH (09:00)
[2024-03-15] MEDS: MULTIVITAMINS, THERA 1 EACH TAB PO SCH (09:05)
[2024-03-15] MEDS: ASPIRIN 81 MG PO SCH (09:05)
[2024-03-15] MEDS: ZINC SULFATE 220 MG CAP PO SCH (09:05)
[2024-03-15 09:13] LABS: HGB 14.1 gm/dL (13.0-17.5); MCH 29.4 pg (25.0-35.0); MCHC 30.6 g/dL (31.0-37.0); MCV 96.2 fL (80.0-100.0); Mean Platelet Volume 9.6; Platelet Count 213 k/uL (150-450); RBC 4.78 m/uL (4.30-5.90); WBC 6.2 k/uL (3.8-10.6)
[2024-03-15 09:35] LABS: ALT 17 U/L (4-49); AST 24 U/L (17-59); African American GFR (CKD) >90 (>60 ml/min/1.73 sqM); Albumin 3.6 g/dL (3.5-5.0); Alkaline Phosphatase 65 U/L (38-126); Anion Gap 6 mmol/L; Blood Urea Nitrogen 20 mg/dL (9-20); Calcium 9.1 mg/dL (8.4-10.2); Carbon Dioxide 28 mmol/L (22-30); Chloride 106 mmol/L (98-107); Glucose 94 mg/dL (74-99); Non-African American GFR(CKD) 79 (>60 ml/min/1.73 sqM); Potassium 4.6 mmol/L (3.5-5.1); Sodium 140 mmol/L (137-145); Total Bilirubin 0.6 mg/dL (0.2-1.3); Total Protein 6.5 g/dL (6.3-8.2)
--- NOTE | 2024-03-15 12:40 | CA ---
Transthoracic Echo Report Name: Van Duron Age: 88 Gender: M : 1935 Exam Date: 03/15/2024 08:33 Exam Location: [place] [facility] Ht (in): 71 Wt (lb): 246 Ordering Physician: Xuan Mackay DO Attending/Referring Phys: [id number], Codie [employer] Lucrecia De La Garza RDCS Procedure CPT: Indications: bradycardia, CHF Cardiac Hx: Technical Quality: Fair Contrast 1: Total Dose (mL): Contrast 2: Total Dose (mL): MEASUREMENTS (Male / Female) Normal Values 2D ECHO LV Diastolic Diameter PLAX 4.1 cm 4.2 - 5.9 / 3.9 - 5.3 cm LV Systolic Diameter PLAX 2.3 cm IVS Diastolic Thickness 2.3 cm 0.6 - 1.0 / 0.6 - 0.9 cm LVPW Diastolic Thickness 2.0 cm 0.6 - 1.0 / 0.6 - 0.9 cm LV Relative Wall Thickness 1.0 RV Internal Dim ED PLAX 3.8 cm LV Diastolic Volume MOD BP 121.1 cm??? 67 - 155 / 56 - 104 cm??? LV Systolic Volume MOD BP 50.9 cm??? 22 - 58 / 19 - 49 cm??? LV Ejection Fraction MOD BP 58.0 % >= 55 % LV Cardiac Index MOD BP 1842.1 cm???/min???m??? LV Diastolic Volume MOD 4C 105.1 cm??? LV Systolic Volume MOD 4C 43.4 cm??? LV Ejection Fraction MOD 4C 58.7 % LV Cardiac Index MOD 4C 1619.3 cm???/min???m??? LV Diastolic Length 4C 8.4 cm LV Systolic Length 4C 7.1 cm LV Diastolic Volume MOD 2C 128.7 cm??? LV Systolic Volume MOD 2C 52.3 cm??? LV Ejection Fraction MOD 2C 59.4 % LV Cardiac Index MOD 2C 2005.0 cm???/min???m??? LV Diastolic Length 2C 9.2 cm LV Systolic Length 2C 8.3 cm LA Volume 100.9 cm??? 18 - 58 / 22 - 52 cm??? LA Volume Index 42.0 cm???/m??? 16 - 28 cm???/m??? M-MODE Aortic Root Diameter MM 4.6 cm LA Systolic Diameter MM 4.2 cm LA Ao Ratio MM 0.9 AV Cusp Separation MM 2.1 cm DOPPLER AV Peak Velocity 133.8 cm/s AV Peak Gradient 7.2 mmHg AV Mean Velocity 84.3 cm/s AV Mean Gradient 3.3 mmHg AV Velocity Time Integral 24.1 cm AI Peak Velocity 369.4 cm/s AI Peak Gradient 54.6 mmHg AI Pressure Half Time 473.0 ms LVOT Peak Velocity 108.4 cm/s LVOT Peak Gradient 4.7 mmHg LVOT Velocity Time Integral 22.9 cm MV Area PHT 3.2 cm??? Mitral E Point Velocity 88.8 cm/s Mitral A Point Velocity 0.3 cm/s Mitral E to A Ratio 349.5 MV Deceleration Time 235.3 ms MV E' Velocity 7.2 cm/s Mitral E to MV E' Ratio 12.4 FINDINGS Left Ventricle Severely increased left ventricular wall thickness. Left ventricular cavity size normal. No obvious regional wall motion abnormalities. Left ventricular ejection fraction is estimated at 55-60 %. Right Ventricle Mild right ventricular dilatation. Right ventricular systolic pressure within normal limits. Right Atrium Mild right atrial dilatation. Left Atrium Severely increased left atrial volume. Moderately increased left atrial area. Mitral Valve Structurally normal mitral valve. Mild mitral annular calcification. Mild mitral regurgitation. Aortic Valve Trileaflet aortic valve. Trace to mild aortic regurgitation. Thickened aortic valve without stenosis. Tricuspid Valve Structurally normal tricuspid valve. Mild tricuspid regurgitation. Pulmonic Valve Structurally normal pulmonic valve. Trace pulmonic regurgitation. Pericardium No pericardial effusion. Aorta Mildly dilated proximal ascending aorta (tube). CONCLUSIONS . Increased left ventricular wall thickness Left ventricular ejection fraction 55-60% Moderately dilated left atrium Mild mitral regurgitation Mild tricuspid regurgitation No pericardial effusion Previewed by: Dr. Ilan Decker DO (Electronically Signed) Final Date: 15 Mar 2024 12:39
--- NOTE | 2024-03-15 14:18 | P.PN ---
Subjective Progress Note Date: 03/15/24 Patient is a an 88-year-old man with history of atrial fibrillation anticoagulated with Eliquis, hypertension, dyslipidemia, and impaired hearing who presented from the urgent care due to bradycardia. Patient had gone to urgent care due to headache was found to have a heart rate in the 30s. On arrival to the ER he was found to be bradycardic with a heart rate of 44. Blood pressure was normal. In the ER his heart rate got as low as the 30s. They administered 1 dose of atropine 0.5 mg and his heart rate went up to the 50s. Initial laboratory analysis consisted of CBC, coags, and CMP which were unremarkable. Initial checks x-ray showed no acute process. Patient was admitted and cardiology was consulted. He was monitored overnight and did have up to 2.3-second pauses. Patient seen and examined at bedside. He is symptom-free. He denies any headache, lightheadedness, or dizziness but he has not been up and standing up. No other complaints currently. Vital signs reviewed General: Nontoxic, no distress, appears at stated age Cardiovascular: S1S2 reg, no murmur Lungs: CTA bilateral, no rhonchi, no rales, no accessory muscle use Abdominal: Soft, nontender to palpation, no guarding Ext: No gross muscle atrophy, no edema b/l lower extremities, no contractures Neuro: CN II-XI grossly intact, no focal neuro deficits Psych: Alert, oriented, appropriate affect Assessment/Plan: Symptomatic bradycardia, resolved s/p atropine X 1 Sinus pauses Chronic A-fib HTN HLD -Hold metoprolol -Telemetry -Await cardio recs -Echocardiogram with preserved EF - Resume Losartan 50 mg PO daily - Eliquis 5 mg PO BID Imaging: Echo with EF55-60%, moderate dilated left atrium, mild MR, mild TR, increased left ventricular wall thickness Data Review: Labs reviewed from today include CBC and CMP which are unremarkable. TSH slightly elevated at 5.3 but free T4 is negative. DVT prophylaxis: Eliquis Anticipated discharge date: in [address]: home This dictation was prepared using [employer] voice recognition software. Though every attempt is made to correct errors during dictation some may still exist. Objective - Vital Signs Vital signs: Vital Signs Temp 97.8 F 03/15/24 04:23 Pulse 56 L 03/15/24 14:16 Resp 18 03/15/24 14:16 BP 119/68 03/15/24 11:38 Pulse Ox 96 03/15/24 11:38 FiO2 Intake & Output 03/14/24 03/15/24 03/15/24 18:59 06:59 18:59 Intake Total 118 Balance 118 Weight 111.7 kg 111.7 kg Intake: Oral 118 Other: # Voids 1 - Labs CBC & Chem 7: 03/15/24 07:43 03/15/24 07:43 Labs: Abnormal Lab Results - Last 24 Hours (Table) 03/15/24 03/15/24 Range/Units 07:43 07:43 MCHC 30.6 L (31.0-37.0) g/dL TSH 5.300 H (0.465-4.680) mIU/L
--- NOTE | 2024-03-15 15:45 | P.CRDCN ---
History of Present Illness Consult date: 03/15/24 Reason for Consult (text): Bradycardia History of present illness: History of present illness: This is an 88-year-old male patient of Dr. Lauren Starks with past medical history of coronary artery disease, hypertension, hyperlipidemia, peripheral vascular disease, persistent atrial fibrillation on Eliquis. We have been asked to evaluate the patient for bradycardia. Patient presented to the hospital with vague symptoms of headache, throbbing sensation, eyes feeling that they were going to fall out of his head. He denies any syncopal episode. No lower extremity edema. He he gives history that he was recently taken off simvastatin because of pain in the back of his legs and started on a atorvastatin and pain had resolved. Patient remains in atrial fibrillation. Lopressor has not been resumed. EKG atrial fibrillation with slow ventricular rate of 46 bpm Chest x-ray: No acute process WBC 6.2, hemoglobin 14.1. Electrolytes normal. BUN 20 creatinine 0.83. TSH 5.3 and free T4 normal at 1. Home cardiac medications: Eliquis 5 mg twice daily, atorvastatin 20 mg at bedtime, losartan 50 mg daily, Lopressor 12.5 mg twice daily. Echocardiogram performed on 03/14/2024 reveals EF of 55 to 60%, moderately dilated left atrium. Mild mitral regurgitation. Mild tricuspid regurgitation. No pericardial effusion. Review Of Systems: At the time of my exam: CONSTITUTIONAL: Denies fever or chills. HEENT: Denies blurred vision, vision changes, or eye pain. Denies hemoptysis CARDIOVASCULAR: Denies chest pain. Denies orthopnea. Denies PND. Denies palpitations RESPIRATORY: Denies shortness of breath. GASTROINTESTINAL: Denies abdominal pain. Denies nausea or vomiting. HEMATOLOGIC: Denies bleeding disorders. GENITOURINARY: Denies any blood in urine. SKIN: Denies pruitis. Denies rash. Physical examination: Gen: This is an 88-year-old male in no acute distress VS: reviewed, blood pressure 119/68, heart rate in the 40s and 50s. HEENT: Head is atraumatic, normocephalic. Pupils equal, round. Sclerae is anicteric. NECK: Supple. No JVD. LUNGS: Clear to auscultation. No wheezes or rhonchi. No intercostal retractions. HEART: Irregular rate and rhythm. ABDOMEN: Soft No tenderness. EXTREMITIES: No pedal edema. No calf tenderness. NEUROLOGICAL: Patient is awake, alert and oriented x3. Assessment: Slow atrial fibrillation, persistent History of coronary artery disease Hypertension Hyperlipidemia Peripheral vascular disease Plan: Resume patient's home cardiac medications Continue to hold Lopressor No further cardiac workup at this time Thank you kindly for this consultation. Nurse practitioner note has been reviewed, I agree with documented findings and plan of care. Patient was seen and examined. Past Medical History Past Medical History: Atrial Fibrillation, Hearing Disorder / Deafness, Hyperlipidemia, Hypertension, Myocardial Infarction ([place]) Additional Past Medical History / Comment(s): Bilateral hearing aid use. Last Myocardial Infarction Date:: 2011 History of Any Multi-Drug Resistant Organisms: None Reported Past Surgical History: Heart Catheterization With Stent, Hernia Repair, Orthopedic Surgery Additional Past Surgical History / Comment(s): Left knee surgery, left ankle surgery, pt thinks 1 or 2 stents not sure in what vessel. pain clinic Past Anesthesia/Blood Transfusion Reactions: No Reported Reaction Date of Last Stent Placement:: 2011 Past Psychological History: No Psychological Hx Reported Smoking Status: Former smoker Past Alcohol Use History: None Reported Additional Past Alcohol Use History / Comment(s): Quit smoking in 1969. Past Drug Use History: None Reported - Past Family History Father Family Medical History: Cancer Mother Family Medical History: Cancer Medications and Allergies Home Medications Medication Instructions Recorded Confirmed Type Aspirin EC [Ecotrin Low Dose] 81 mg PO DAILY 02/27/17 03/14/24 History Acetaminophen Tab [Tylenol Tab] 500 mg PO Q6H PRN 10/06/19 03/14/24 History Multivitamins, Thera [Multivitamin 1 tab PO DAILY 07/05/22 03/14/24 History (formulary)] Tamsulosin [Flomax] 0.4 mg PO AC-SUPPER 07/05/22 03/14/24 History Finasteride [Proscar] 5 mg PO BID 09/05/22 03/14/24 History Apixaban [Eliquis] 5 mg PO BID 03/14/24 03/14/24 History Atorvastatin [Lipitor] 20 mg PO HS 03/14/24 03/14/24 History Losartan [Cozaar] 50 mg PO DAILY 03/14/24 03/14/24 History Metoprolol Tartrate [Lopressor] 12.5 mg PO BID 03/14/24 03/14/24 History Pregabalin [Lyrica] 150 mg PO BID 03/14/24 03/14/24 History Vitamin B Complex 1 cap PO DAILY 03/14/24 03/14/24 History Zinc 30mg 30 mg PO DAILY 03/14/24 03/14/24 History Allergies Allergy/AdvReac Type Severity Reaction Status Date / Time papaverine [From [facility]] AdvReac liver Verified 03/14/24 16:33 issues, turned yellow Physical Exam Vitals: Vital Signs Temp Pulse Pulse Pulse Resp BP BP 03/15/24 11:38 56 L 18 119/68 03/15/24 10:39 46 L 18 03/15/24 08:39 46 L 18 155/72 03/15/24 04:23 97.8 F 50 L 18 156/87 03/15/24 01:40 49 L 139/73 03/14/24 23:39 97.8 F 55 L 16 156/85 03/14/24 21:09 97.4 F L 49 L 16 178/85 03/14/24 20:57 56 L 18 156/86 03/14/24 18:02 97.6 F 54 L 20 158/89 03/14/24 17:50 97.6 F 54 L 22 144/93 03/14/24 16:10 97.6 F 55 L 17 158/93 03/14/24 15:20 50 L 18 168/107 03/14/24 14:03 97.4 F L 57 L 17 158/90 03/14/24 13:52 55 L 03/14/24 13:35 44 L 18 146/94 03/14/24 12:47 45 L 03/14/24 12:36 97.6 F 44 L 17 158/96 Pulse Ox 03/15/24 11:38 96 03/15/24 10:39 03/15/24 08:39 96 03/15/24 04:23 95 03/15/24 01:40 03/14/24 23:39 95 03/14/24 21:09 97 03/14/24 20:57 98 03/14/24 18:02 97 03/14/24 17:50 97 03/14/24 16:10 98 03/14/24 15:20 100 03/14/24 14:03 95 03/14/24 13:52 03/14/24 13:35 95 03/14/24 12:47 03/14/24 12:36 97 Intake and Output 03/14/24 03/15/24 03/15/24 22:59 06:59 14:59 Intake Total 118 Balance 118 Intake: Oral 118 Other: # Voids 1 Weight 111.7 kg Results 03/15/24 07:43 03/15/24 07:43 Cardiac Enzymes 03/14/24 03/14/24 03/15/24 Range/Units 13:34 13:34 07:43 AST 28 24 (17-59) U/L Troponin I <0.012 (0.000-0.034) ng/mL Coagulation 03/14/24 Range/Units 13:34 PT 11.4 (10.0-12.5) sec APTT 25.1 (22.0-30.0) sec CBC 03/14/24 03/15/24 Range/Units 13:34 07:43 WBC 6.4 6.2 (3.8-10.6) k/uL RBC 4.48 4.78 (4.30-5.90) m/uL Hgb 13.4 14.1 (13.0-17.5) gm/dL Hct 42.4 46.0 (39.0-53.0) % Plt Count 196 213 (150-450) k/uL Comprehensive Metabolic Panel 03/14/24 03/15/24 Range/Units 13:34 07:43 Sodium 138 140 (137-145) mmol/L Potassium 4.6 4.6 (3.5-5.1) mmol/L Chloride 108 H 106 (98-107) mmol/L Carbon Dioxide 24 28 (22-30) mmol/L BUN 20 20 (9-20) mg/dL Creatinine 0.78 0.83 (0.66-1.25) mg/dL Glucose 101 H 94 (74-99) mg/dL Calcium 9.1 9.1 (8.4-10.2) mg/dL AST 28 24 (17-59) U/L ALT 18 17 (4-49) U/L Alkaline Phosphatase 57 65 (38-126) U/L Total Protein 6.3 6.5 (6.3-8.2) g/dL Albumin 3.4 L 3.6 (3.5-5.0) g/dL Current Medications Generic Name Dose Route Start Last Admin Trade Name Freq PRN Reason Stop Dose Admin Acetaminophen 650 mg 03/14/24 17:25 Acetaminophen Tab 325 Mg Tab PO Q6HR PRN Mild Pain or Fever > 100.5 Apixaban 5 mg 03/14/24 21:00 03/15/24 09:05 Apixaban 5 Mg Tab PO 5 mg BID JANNETH Administration Protocol Aspirin 81 mg 03/15/24 09:00 03/15/24 09:05 Aspirin 81 Mg PO 81 mg DAILY JANNETH Administration Atorvastatin Calcium 20 mg 03/14/24 21:00 03/14/24 21:20 Atorvastatin 20 Mg Tab PO 20 mg HS JANNETH Administration Finasteride 5 mg 03/14/24 21:00 03/15/24 09:05 Finasteride 5 Mg Tab PO 5 mg BID JANNETH Administration Sodium Chloride 1,000 mls @ 20 mls/hr 03/14/24 14:30 03/14/24 14:36 Saline 0.9% IV 20 mls/hr .Q24H JANNETH Administration Melatonin 3 mg 03/14/24 17:25 Melatonin 3 Mg Tablet PO HS PRN Insomnia Multivitamins 1 each 03/15/24 09:00 03/15/24 09:05 Multivitamins, Thera 1 Each Tab PO 1 each DAILY JANNETH Administration Naloxone HCl 0.2 mg 03/14/24 14:19 Naloxone 0.4 Mg/Ml 1 Ml Vial IV Q2M PRN Opioid Reversal Ondansetron HCl 4 mg 03/14/24 17:25 Ondansetron 4 Mg/2 Ml Vial IVP Q8HR PRN Nausea And Vomiting Tamsulosin HCl 0.4 mg 03/14/24 17:30 03/14/24 17:50 Tamsulosin 0.4 Mg Cap.Er.24h PO 0.4 mg AC-SUPPER JANNETH Administration Zinc Sulfate 220 mg 03/15/24 09:00 03/15/24 09:05 Zinc Sulfate 220 Mg Cap PO 220 mg DAILY JANNETH Administration Intake and Output 03/14/24 03/15/24 03/15/24 22:59 06:59 14:59 Intake Total 118 Balance 118 Intake: Oral 118 Other: # Voids 1 Weight 111.7 kg 03/15/24 07:43 03/15/24 07:43
[2024-03-15] MEDS: LOSARTAN 50 MG TAB PO SCH (20:50)
[2024-03-16 04:48] VITALS: TEMP 97.9
[2024-03-16] MEDS ORDERED: LOSARTAN 50 MG TAB PO SCH (09:00)
[2024-03-16 09:04] VITALS: BP 155/84; PULSE 52
[2024-03-16] MEDS: LOSARTAN 50 MG TAB PO STA (09:59)
--- NOTE | 2024-03-16 11:57 | P.PN ---
Subjective Progress Note Date: 03/16/24 Reason for Consult (text): Bradycardia History of present illness: This is an 88-year-old male patient of Dr. Lauren Starks with past medical history of coronary artery disease, hypertension, hyperlipidemia, peripheral vascular disease, persistent atrial fibrillation on Eliquis. We have been asked to evaluate the patient for bradycardia. Patient presented to the hospital with vague symptoms of headache, throbbing sensation, eyes feeling that they were go ing to fall out of his head. He denies any syncopal episode. No lower extremity edema. He he gives history that he was recently taken off simvastatin because of pain in the back of his legs and started on a atorvastatin and pain had resolved. Patient remains in atrial fibrillation. Lopressor has not been resumed. EKG atrial fibrillation with slow ventricular rate of 46 bpm Chest x-ray: No acute process WBC 6.2, hemoglobin 14.1. Electrolytes normal. BUN 20 creatinine 0.83. TSH 5.3 and free T4 normal at 1. Home cardiac medications: Eliquis 5 mg twice daily, atorvastatin 20 mg at bedtime, losartan 50 mg daily, Lopressor 12.5 mg twice daily. Echocardiogram performed on 03/14/2024 reveals EF of 55 to 60%, moderately dilated left atrium. Mild mitral regurgitation. Mild tricuspid regurgitation. No pericardial effusion. 03/16 Patient had elevated blood pressure readings last evening and received an additional dose of Cozaar. This morning, patient complains of a little headache. No shortness of breath and no lightheadedness. He has been up to the bathroom. Heart rate is in the 48-55 range. Blood pressure is 155/84. Physical examination: Gen: This is an 88-year-old male in no acute distress VS: reviewed, blood pressure 119/68, heart rate in the 40s and 50s. HEENT: Head is atraumatic, normocephalic. Pupils equal, round. Sclerae is anicteric. NECK: Supple. No JVD. LUNGS: Clear to auscultation. No wheezes or rhonchi. No intercostal retractions. HEART: Irregular rate and rhythm. ABDOMEN: Soft No tenderness. EXTREMITIES: No pedal edema. No calf tenderness. NEUROLOGICAL: Patient is awake, alert and oriented x3. Assessment: Slow atrial fibrillation, persistent History of coronary artery disease Hypertension Hyperlipidemia Peripheral vascular disease Plan: Resume patient's home cardiac medications Increase Lopressor to 100 mg daily Patient is cleared for discharge from cardiology and may follow-up with Dr. Decker in the office in 1 week. Nurse practitioner note has been reviewed, I agree with documented findings and plan of care. Patient was seen and examined. Objective - Vital Signs Vital signs: Vital Signs Temp 97.9 F 03/16/24 04:39 Pulse 52 L 03/16/24 10:35 Resp 18 03/16/24 10:35 BP 155/84 03/16/24 08:36 Pulse Ox 96 03/16/24 08:36 FiO2 Intake & Output 03/15/24 03/16/24 03/16/24 18:59 06:59 18:59 Intake Total 236 118 Balance 236 118 Intake: Oral 236 118 Other: # Voids 2 - Labs CBC & Chem 7: 03/15/24 07:43 03/15/24 07:43
--- NOTE | 2024-03-16 14:58 | P.DS ---
Providers Date of admission: 03/14/24 14:20 Expected date of discharge: 03/16/24 Attending physician: Xuan Mackay DO Consults: 03/14/24 14:19 Consult Physician Routine Consulting Provider: Akash Becerril Consult Reason/Comments: bradycardia Do you want consulting provider notified?: Yes Primary care physician: [facility] Hospital Course: Discharge Diagnosis: Symptomatic bradycardia, resolved s/p atropine X 1 Sinus pauses Chronic A-fib HTN HLD Hospital Course: Patient is a an 88-year-old man with history of atrial fibrillation anti coagulated with Eliquis, hypertension, dyslipidemia, and impaired hearing who presented from the urgent care due to bradycardia. Patient had gone to urgent care due to headache was found to have a heart rate in the 30s. On arrival to the ER he was found to be bradycardic with a heart rate of 44. Blood pressure was normal. In the ER his heart rate got as low as the 30s. They administered 1 dose of atropine 0.5 mg and his heart rate went up to the 50s. Initial laboratory analysis consisted of CBC, coags, and CMP which were unremarkable. Initial checks x-ray showed no acute process. Patient was admitted and cardiology was consulted. He was monitored overnight and did have up to 2.3- second pauses. HR improved by the morning of 03/16 off metorpolol. His losartan was increased to 100 gm daily. He was determined stable for discharge. Follow-up: He will follow-up with Dr. Decker next week in office. Medication changes included discontinuation of metoprolol and increasing losartan to 100 mg daily. He will check blood pressures twice daily. He will follow-[facility] with [facility] in 3 to 4 days. Patient seen and examined at bedside. Doing well. No chest pain, no recurrent headache, no fogginess Vital signs reviewed and stable. General: Nontoxic, no distress, appears at stated age Cardiovascular: S1S2 reg, no murmur, positive posterior tibial pulse bilateral, Lungs: CTA bilateral, no rhonchi, no rales, no accessory muscle use Ext: No gross muscle atrophy, no edema b/l lower extremities, no contractures Neuro: CN II-XI grossly intact, no focal neuro deficits Psych: Alert, oriented, appropriate affect A total of 35 minutes of time were spent preparing this complex discharge summary. Patient was discharged on 03/16/2024. This dictation was prepared using [employer] voice recognition software. Though every attempt is made to correct errors during dictation some may still exist. Patient Condition at Discharge: Stable Plan - Discharge Summary Discharge Rx Participant: No New Discharge Prescriptions: New Losartan Potassium [Cozaar] 100 mg PO DAILY #30 tab Continue Aspirin EC [Ecotrin Low Dose] 81 mg PO DAILY Acetaminophen Tab [Tylenol] 500 mg PO Q6H PRN PRN Reason: if lyrica not working Zinc 30mg 30 mg PO DAILY Apixaban [Eliquis] 5 mg PO BID Pregabalin [Lyrica] 150 mg PO BID Vitamin B Complex 1 cap PO DAILY Multivitamins, Thera [Multivitamin (formulary)] 1 tab PO DAILY Tamsulosin [Flomax] 0.4 mg PO AC-SUPPER Finasteride [Proscar] 5 mg PO BID Atorvastatin [Lipitor] 20 mg PO HS Discontinued Metoprolol Tartrate [Lopressor] 12.5 mg PO BID Losartan [Cozaar] 50 mg PO DAILY Discharge Medication List Aspirin EC [Ecotrin Low Dose] 81 mg PO DAILY 02/27/17 [History] Acetaminophen Tab [Tylenol] 500 mg PO Q6H PRN 10/06/19 [History] Multivitamins, Thera [Multivitamin (formulary)] 1 tab PO DAILY 07/05/22 [History] Tamsulosin [Flomax] 0.4 mg PO AC-SUPPER 07/05/22 [History] Finasteride [Proscar] 5 mg PO BID 09/05/22 [History] Apixaban [Eliquis] 5 mg PO BID 03/14/24 [History] Atorvastatin [Lipitor] 20 mg PO HS 03/14/24 [History] Pregabalin [Lyrica] 150 mg PO BID 03/14/24 [History] Vitamin B Complex 1 cap PO DAILY 03/14/24 [History] Zinc 30mg 30 mg PO DAILY 03/14/24 [History] Losartan Potassium [Cozaar] 100 mg PO DAILY #30 tab 03/16/24 [Rx] Follow up Appointment(s)/Referral(s): Ilan Decker DO [STAFF PHYSICIAN] - 1 Week (for hospital follow-up, please call and make appointment ) [facility] [Primary Care Provider] - 1-2 days (please call and make appointment ) Patient Instructions/Handouts: Bradycardia (DC) Activity/Diet/Wound Care/Special Instructions: Activity: As tolerated Diet: Heart Healthy Special Instructions: Monitor your blood pressure twice daily and make a log for Dr. Decker. If your blood pressure if greater than 180 on the top or 110 on the bottom then seek medical care. If your blood pressure is less than 95 on the top or less than 70 on the bottom seek medical care. Discharge Disposition: HOME SELF-CARE
[2024-03-17] MEDS ORDERED: LOSARTAN 50 MG TAB PO SCH (09:00)
== END 2024-03-16 12:38 | disposition home or self-care (01) | DRG 310 ==
LOC: EC 12:34 → 3SCARD 14:20
PROVIDERS: ADMIT Internal Medicine; ATTEND Internal Medicine
DX: I48.19 Other persistent atrial fibrillation (principal); R00.1 Bradycardia, unspecified; E11.51 Type 2 diabetes mellitus with diabetic peripheral angiopathy without gangrene; E78.5 Hyperlipidemia, unspecified; G89.29 Other chronic pain; H91.90 Unspecified hearing loss, unspecified ear; I10 Essential (primary) hypertension; I25.10 Atherosclerotic heart disease of native coronary artery without angina pectoris; Z79.899 Other long term (current) drug therapy; Z79.82 Long term (current) use of aspirin; Z88.8 Allergy status to other drugs, medicaments and biological substances; I25.2 Old myocardial infarction; Z79.01 Long term (current) use of anticoagulants; Z87.891 Personal history of nicotine dependence; Z97.4 Presence of external hearing-aid; Z95.5 Presence of coronary angioplasty implant and graft
CPT/HCPCS: 36415; 71046; 80053; 83735; 84439; 84443; 84484; 85025; 85027; 85610; 85730; 93005; 93306; 96374; 99291

== ENCOUNTER 2024-04-04 10:27 | Day surgery (SDC) | payer MEDICARE, OTHER ==
[2024-04-02 17:49] VITALS: BMI 45.3
[2024-04-04] MEDS: SODIUM CHLORIDE 0.9% 1,000 ML IV SCH (11:05)
[2024-04-04] MEDS: fentaNYL (PF) 50 MCG/ML 2 ML AMP IVP ONE (12:31)
[2024-04-04] MEDS: MIDAZOLAM 2 MG/2 ML VIAL IVP ONE (12:31)
[2024-04-04] MEDS: LIDOCAINE 1% INJ 10MG/ML (20 ML MDV) SQ ONE (12:34)
[2024-04-04] MEDS: ceFAZolin 1,000 MG in SODIUM CHLORIDE 0.9% IRRIG BTL 250 ML IRRIGATION ONE (13:11)
[2024-04-04] MEDS ORDERED: ACETAMINOPHEN TAB 500 MG TAB PO PRN (13:44)
[2024-04-04] MEDS ORDERED: hydrALAZINE HCL 25 MG TAB PO PRN (13:44)
[2024-04-04] MEDS ORDERED: ACETAMINOPHEN TAB 325 MG TAB PO PRN (13:47)
--- NOTE | 2024-04-04 14:56 | XR ---
EXAMINATION TYPE: XR chest 1V portable DATE OF EXAM: 04/04/2024 COMPARISON: 03/14/2024 INDICATION: Lead placement check TECHNIQUE: Single frontal view of the chest is obtained. FINDINGS: The heart size is mild to prominent. The pulmonary vasculature is normal. The lungs are clear. Pacemaker overlies left chest. No significant interval change is evident. IMPRESSION: 1. No acute pulmonary process.
--- NOTE | 2024-04-04 15:08 | P.PCN ---
Description of Procedure: CARDIOLOGY PROCEDURE NOTE [employer] Professor: Dr. Ilan Decker Procedure performed: Insertion dual chamber permanent pacemaker Site: Left subclavian Indications: Sick Sinus Syndrome, symptomatic bradycardia without reversible causes Complications: None Blood Loss: Minimal Description of Procedure: After the risks, benefits, and alternatives of the above-mentioned procedure was explained in detail with the patient, informed consent was obtained. The patient was taken to the cardiac catheterization suite where the left subclavian area was sterily prepped and draped in the usual fashion. One percent lidocaine was used to anesthetize the left subclavian area. Twenty milliliters of Isoview 370 contrast was injected into the left antecubital vein to allow for direct visualization of the left subclavian vein under fluoroscopy. A 1.5 inch incision was made utilizing a #15 blade in the left subclavian site. Hemostasis was made complete. Electrocautery along with digital blunt dissection was utilized to dissect to the level of the pectoralis muscle fascia and create a pocket large enough to accommodate the generator. A thin walled micro puncuture needle was used to cannulate the left subclavian vein. A guide-wire was inserted through the needle into the vascular lumen under fluoroscopic guidance. The needle was removed. Another thin walled micr puncture needle was used to again cannulate the left subclavian vein. A guide-wire was inserted through the needle into the vascular lumen under fluoroscopic guidance. The needle was removed and both guide-wires were attached to the field. A venous sheath and dilator were advanced over the guidewire into the vascular lumen under fluoroscopic guidance. The dilator and guidewire were then removed. A right ventricular bipolar lead was inserted into the sheath and advanced under fluoroscopic guidance into the right ventricle under fluoroscopic guidance. Adequate sensing and pacing thresholds were achieved and the lead was screwed into place in the RV apical septum. The sheath was then torn away. The lead collar was advanced and anchored into place utilizing #0 silk suture. Next, another venous sheath and dilator were advanced under fluoroscopic guidance into the vascular lumen over the guidewire. After removal of the dilator and guidewire, a right atrial bipolar lead was inserted into this sheath and advanced under fluoroscopic guidance into the right atrium. The lead was positioned into the right atrial appendage. Adequate sensing and pacing thresholds were then achieved with patient being in Aflutter at the time and the lead was screwed into place. The sheath was then torn away. The lead collar was advanced and anchored into place utilizing #0 silk suture. The leads were then inserted into the appropriate position into the generator. They were then secured with the setscrew provided. The leads and generator were inserted into the pocket with the leads posterior. The subcutaneous tissue was approximated utilizing #2.0 and 3.0 vicryl in an interrupted stitch fashion. The dermal layer was approximated utilizing #4.0 vicryl. The area was cleansed with sterile saline and dried. A sterile 4x4 dressing was applied and the patient was transferred to the post catheterization holding area in stable and satisfactory condition. The patient tolerated the procedure well. Generator Data Broker Assistant: [employer] Brand: [id number] Laura XT DR MRI Model #: [id number] Serial#: [id number] Right Atrial Bipolar Lead Data: Type: Active fixation lead Broker Assistant: [employer] Model#: 5076-52 Serial Number: [id number] Right Ventricular Bipolar Lead Data: Type: Active fixation lead Broker Assistant: [employer] Model #: 5076-58 Serial #: [id number] Stimulation Thresholds: Right atrial bipolar lead pacing and sensing thresholds Voltage: Afib Impedance: 1216 ohms P-wave sensin.1 mV Right Ventricular bipolar lead pacing and sensing thresholds Pulse Width: 0.4ms Voltage: 0.5 volts Impedance: 1007 ohms R-wave sensin.0 mV Parameter Setting: Pacing mode is DDDR Lower rate 60 bpm Upper rate 130 bpm Impressions: 1. Successful implantation of a dual chamber permanent pacemaker in the left pectoral site. Plan: 1. Routine post procedure care will be instituted as well as outpatient follow- up surveillance.
[2024-04-04] MEDS: TAMSULOSIN 0.4 MG CAP.ER.24H PO SCH (17:36)
[2024-04-04] MEDS: ATORVASTATIN 20 MG TAB PO SCH (20:11)
[2024-04-04] MEDS: PREGABALIN 75 MG CAP PO SCH (20:11)
[2024-04-04] MEDS: FINASTERIDE 5 MG TAB PO SCH (20:12)
[2024-04-05 07:36] VITALS: BP 146/84; PULSE 81; RESP 16; TEMP 97.9
[2024-04-05] MEDS: MULTIVITAMINS, THERA 1 EACH TAB PO SCH (09:18)
[2024-04-05] MEDS: ASPIRIN 81 MG PO SCH (09:18)
[2024-04-05] MEDS: LOSARTAN 50 MG TAB PO SCH (09:18)
[2024-04-05] MEDS: CHLORTHALIDONE 25 MG TAB PO SCH (09:19)
[2024-04-05] MEDS: prednisoLONE ACETATE 1% OPHTH DROPS 5 ML BTL LEFT EYE SCH (09:19)
--- NOTE | 2024-04-05 12:31 | P.DS ---
Providers Date of admission: 04/04/24 Attending physician: Ilan Decker DO Primary care physician: [facility] Course: The patient is an 88-year-old male who follows in the office with Dr. Decker. He underwent dual chamber pacemaker implantation for symptomatic bradycardia yesterday. The patient tolerated the procedure well. There is a small amount of shadowing on his dressing. Chest x-ray shows stable lead placement. Patient was interviewed and examined sitting in the recliner chair. He states he feels well. He is using his sling. GENERAL: Well-appearing, well-nourished and in no acute distress. NECK: Supple without JVD or thyromegaly. LUNGS: Breath sounds clear to auscultation bilaterally. Respiration equal and unlabored. No wheezes, rales or rhonchi. HEART: Regular rate and rhythm without murmurs, rubs or gallops. S1 and S2 heard. EXTREMITIES: Normal range of motion, no edema. No clubbing or cyanosis. Peripheral pulses intact and strong. TELEMETRY: Paced rhythm IMPRESSION: Bradycardia Status post dual-chamber pacemaker Mild mitral regurgitation Atrial fibrillation Hypertension Thoracic aneurysm PLAN: Continue home medication regimen Complete pacemaker interrogation Once completed patient may be discharged for outpatient follow-up with primary line appliance assembler Dr. Decker I am dictating on behalf of Dr Juve Welch's history/physical and assessment/plan. Plan - Discharge Summary Discharge Rx Participant: No New Discharge Prescriptions: No Action Aspirin EC [Ecotrin Low Dose] 81 mg PO DAILY Acetaminophen Tab [Tylenol] 500 mg PO Q6H PRN PRN Reason: if lyrica not working Zinc Gluconate [Zinc] 50 mg PO DAILY #0 Apixaban [Eliquis] 5 mg PO BID Pregabalin [Lyrica] 150 mg PO BID prednisoLONE ACETATE 1% OPHTH [Pred Forte 1%] 1 drop LEFT EYE DAILY Chlorthalidone [Hygroton] 25 mg PO DAILY 30 Days #30 tab Multivitamins, Thera [Multivitamin (formulary)] 1 tab PO DAILY Tamsulosin [Flomax] 0.4 mg PO AC-SUPPER Finasteride [Proscar] 5 mg PO BID Atorvastatin [Lipitor] 20 mg PO HS Losartan Potassium [Cozaar] 100 mg PO DAILY hydrALAZINE HCL 25 mg PO TID PRN PRN Reason: sys b/p>180 Discharge Medication List Aspirin EC [Ecotrin Low Dose] 81 mg PO DAILY 02/27/17 [History] Acetaminophen Tab [Tylenol] 500 mg PO Q6H PRN 10/06/19 [History] Multivitamins, Thera [Multivitamin (formulary)] 1 tab PO DAILY 07/05/22 [History] Tamsulosin [Flomax] 0.4 mg PO AC-SUPPER 07/05/22 [History] Finasteride [Proscar] 5 mg PO BID 09/05/22 [History] Apixaban [Eliquis] 5 mg PO BID 03/14/24 [History] Atorvastatin [Lipitor] 20 mg PO HS 03/14/24 [History] Pregabalin [Lyrica] 150 mg PO BID 03/14/24 [History] Zinc Gluconate [Zinc] 50 mg PO DAILY #0 03/14/24 [History] prednisoLONE ACETATE 1% OPHTH [Pred Forte 1%] 1 drop LEFT EYE DAILY 03/30/24 [History] Chlorthalidone [Hygroton] 25 mg PO DAILY 30 Days #30 tab 03/31/24 [Rx] Losartan Potassium [Cozaar] 100 mg PO DAILY 04/03/24 [History] hydrALAZINE HCL 25 mg PO TID PRN 04/03/24 [History] Follow up Appointment(s)/Referral(s): Juan Gray MD [STAFF PHYSICIAN] - 1 Week (APPOINTMENT MADE ON April @ 4:00PM FOR DEVICE CHECK AND TO SEE DR. GRAY) Patient Instructions/Handouts: Moderate Sedation (DC), Pacemaker Generator Change (DC) Activity/Diet/Wound Care/Special Instructions: *NO LIFTING, PUSHING, OR PULLING ANYTHING OVER 5 POUNDS FOR 5 DAYS *NO DRIVING FOR 3 DAYS *YOU CAN REMOVE YOUR DRESSING TOMORROW BUT DO NOT SUBMERSE YOUR PUNCTURE SITE IN WATER FOR A FEW DAYS TO PREVENT INFECTION - SO NOT TUB BATHS, POOLS, HOT TUBS, DISHES...ETC *ANY SIGNS OF BLEEDING (HARDNESS, SWELLING, OR EXCESSIVE BRUISING) HOLD DIRECT PRESSURE ON YOUR PUNCTURE SITE AND COME TO THE NEAREST EMERGENCY ROOM TO GET YOUR PUNCTURE SITE LOOKED AT - DO NOT DRIVE YOURSELF! EITHER CALL EMS OR HAVE SOMEONE DRIVE YOU!
== END 2024-04-05 12:00 | disposition home or self-care (01) ==
LOC: CATHEP 10:27 → 6NMEDSUR 13:55 → CATHEP 04-05 12:00
PROVIDERS: ATTEND Internal Medicine
DX: R00.1 Bradycardia, unspecified (principal); I49.5 Sick sinus syndrome; I48.19 Other persistent atrial fibrillation; I34.0 Nonrheumatic mitral (valve) insufficiency; I10 Essential (primary) hypertension; I25.10 Atherosclerotic heart disease of native coronary artery without angina pectoris; E78.5 Hyperlipidemia, unspecified; I71.20 Thoracic aortic aneurysm, without rupture, unspecified; I25.2 Old myocardial infarction; Z87.891 Personal history of nicotine dependence; Z88.6 Allergy status to analgesic agent; Z88.8 Allergy status to other drugs, medicaments and biological substances; Z79.01 Long term (current) use of anticoagulants; Z79.82 Long term (current) use of aspirin; Z79.899 Other long term (current) drug therapy
CPT/HCPCS: 33208; 71045; C1892; C1898; C1769; C1785; S0138 ×2; J2250; J0690 ×2; J2001; J3010

== ENCOUNTER 2024-04-08 15:46 | Emergency (ER) | payer MEDICARE, OTHER ==
--- NOTE | 2024-04-08 16:13 | ED ---
General Adult HPI - General Chief complaint: Recheck/Abnormal Lab/Rx Stated complaint: Bradycardia Time Seen by Provider: 04/08/24 15:52 Source: EMS Mode of arrival: EMS - History of Present Illness Initial comments: This patient is an 88-year-old man who presents with complaint that he believes his pacemaker may not be working properly. The patient states that he was organizing some things in his yard for people who are going to be doing some yard work for him. He then began to feel fatigue, generalized weakness and dizziness. States that he went inside and his blood pressure checked out in the 80s over 40s. The patient did not have chest pain, dyspnea, diaphoresis, nausea or vomiting. There was no focal weakness. as he did persist and not feeling well EMS was called and they brought him here for evaluation. -: hour(s) Severity scale (1-10): 0 Consistency: constant Improves with: none Worsens with: none Associated Symptoms: weakness Treatments Prior to Arrival: none - Related Data Home Medications Medication Instructions Recorded Confirmed Aspirin EC [Ecotrin Low Dose] 81 mg PO DAILY 02/27/17 04/08/24 Acetaminophen Tab [Tylenol] 500 mg PO Q6H PRN 10/06/19 04/08/24 Multivitamins, Thera [Multivitamin 1 tab PO DAILY 07/05/22 04/08/24 (formulary)] Tamsulosin [Flomax] 0.4 mg PO AC-SUPPER 07/05/22 04/08/24 Finasteride [Proscar] 5 mg PO BID 09/05/22 04/08/24 Apixaban [Eliquis] 5 mg PO BID 03/14/24 04/08/24 Atorvastatin [Lipitor] 20 mg PO HS 03/14/24 04/08/24 Pregabalin [Lyrica] 150 mg PO BID 03/14/24 04/08/24 Zinc Gluconate [Zinc] 50 mg PO DAILY #0 03/14/24 04/08/24 Losartan Potassium [Cozaar] 100 mg PO DAILY 04/03/24 04/08/24 hydrALAZINE HCL 25 mg PO TID PRN 04/03/24 04/08/24 Previous Rx's Medication Instructions Recorded Chlorthalidone [Hygroton] 25 mg PO DAILY 30 Days #30 tab 03/31/24 Allergies Allergy/AdvReac Type Severity Reaction Status Date / Time metoprolol AdvReac bradycardia Verified 04/08/24 17:34 papaverine [From Pavabid] AdvReac liver Verified 04/08/24 17:34 issues, turned yellow tramadol AdvReac Confusion Verified 04/08/24 17:34 Review of Systems ROS Statement: Those systems with pertinent positive or pertinent negative responses have been documented in the HPI. ROS Other: All systems not noted in ROS Statement are negative. Constitutional: Reports: weakness. Denies: fever, chills Eyes: Denies: vision change Respiratory: Denies: cough, dyspnea Cardiovascular: Reports: dyspnea on exertion. Denies: chest pain, palpitations, orthopnea, edema, syncope Gastrointestinal: Denies: abdominal pain, nausea, vomiting, melena, hematochezia Genitourinary: Denies: dysuria, hematuria Musculoskeletal: Denies: back pain Skin: Denies: rash Neurological: Denies: headache, weakness, numbness, confusion Past Medical History Past Medical History: Atrial Fibrillation, Hearing Disorder / Deafness, Hyperlipidemia, Hypertension, Myocardial Infarction ([place]) Additional Past Medical History / Comment(s): recent admission to [facility] elevated b/p 200s/100s, Bilateral hearing aid use,uses a replexa machine for chronic back pain Last Myocardial Infarction Date:: 2011 History of Any Multi-Drug Resistant Organisms: None Reported Past Surgical History: Heart Catheterization With Stent, Hernia Repair, Orthopedic Surgery Additional Past Surgical History / Comment(s): Left knee surgery, left ankle surgery, pt thinks 1 or 2 stents not sure in what vessel. pain clinic Past Anesthesia/Blood Transfusion Reactions: No Reported Reaction Date of Last Stent Placement:: 2011 Past Psychological History: No Psychological Hx Reported Smoking Status: Former smoker Past Alcohol Use History: None Reported Past Drug Use History: None Reported - Past Family History Father Family Medical History: Cancer Mother Family Medical History: Cancer General Exam General appearance: alert, in no apparent distress Head exam: Present: atraumatic, normocephalic Eye exam: Present: normal appearance. Absent: scleral icterus, conjunctival injection Neck exam: Present: normal inspection Respiratory exam: Present: normal lung sounds bilaterally. Absent: respiratory distress, wheezes, rales, rhonchi, stridor, accessory muscle use Cardiovascular Exam: Present: regular rate, normal rhythm, normal heart sounds. Absent: systolic murmur, diastolic murmur, rubs, gallop GI/Abdominal exam: Present: soft. Absent: distended, tenderness, guarding, rebound, rigid, mass Extremities exam: Present: normal inspection, normal capillary refill. Absent: pedal edema, calf tenderness Back exam: Present: normal inspection. Absent: CVA tenderness (R), CVA tenderness (L) Neurological exam: Present: alert, oriented X3, CN II-XII intact. Absent: motor sensory deficit Skin exam: Present: warm, dry, intact, normal color. Absent: rash Course Vital Signs 04/08/24 04/08/24 04/08/24 15:49 17:45 19:46 Temperature 98.3 F 98.4 F Pulse Rate 61 81 60 Respiratory 18 16 18 Rate Blood Pressure 118/86 131/72 125/83 O2 Sat by Pulse 95 95 98 Oximetry EKG Findings - EKG Comments: EKG Findings:: The ECG shows a paced ventricular rhythm with 1 PVC rate 61 bpm. - EKG Results: EKG: interpreted by NISREEN Medical Decision Making - Medical Decision Making The patient had chest x-ray that I interpreted as negative for acute infiltrate, pneumothorax, congestive heart failure Was pt. sent in by a medical professional or institution (, PA, CERTIFIED OPHTHALMIC SURGICAL ASSISTANT, urgent care, hospital, or half-way...) When possible be specific @ -[No] Did you speak to anyone other than the patient for history (EMS, parent, family, police, friend...)? What history was obtained from this source @ -[No] Did you review nursing and triage notes (agree or disagree)? Why? @ -[I reviewed and agree with nursing and triage notes] Were old charts reviewed (outside hosp., previous admission, EMS record, old EKG, old radiological studies, urgent care reports/EKG's, half-way records)? Report findings @ -[No old charts were reviewed] Differential Diagnosis (chest pain, altered mental status, abdominal pain women, abdominal pain men, vaginal bleeding, weakness, fever, dyspnea, syncope, headache, dizziness, GI bleed, back pain, seizure, CVA, palpatations, mental health, musculoskeletal)? @ -[Differential Dizziness: Benign paroxysmal positional Vertigo, Menieres disease, otitis media, acoustic neuroma, vertebrobasilar insufficiency, cerebellar stroke, encephalitis, hypovolemic, arrhythmia, coronary artery syndrome, anemia, this is not meant to be an all-inclusive list EKG interpreted by me (3pts min.). @ -[I interpreted as above] X-rays interpreted by me (1pt min.). @ -[I interpreted as above CT interpreted by me (1pt min.). @ -[None done] U/S interpreted by me (1pt. min.). @ -[None done] What testing was considered but not performed or refused? (CT, X-rays, U/S, labs)? Why? @ -[None] What meds were considered but not given or refused? Why? @ -[None] Did you discuss the management of the patient with other professionals (professionals i.e. , PA, CERTIFIED OPHTHALMIC SURGICAL ASSISTANT, lab, RT, psych nurse, child protective services social worker, alberene stone setter, teacher, aoc aadc operations staff officer, shelter case manager)? Give summary @ -[No] Was smoking cessation discussed for >3mins.? @ -[No] Was critical care preformed (if so, how long)? @ -[No] Were there social determinants of health that impacted care today? How? (Homelessness, low income, unemployed, alcoholism, drug addiction, transportation, low edu. Level, literacy, decrease access to med. care, prison, rehab)? @ -[No] Was there de-escalation of care discussed even if they declined (Discuss DNR or withdrawal of care, Hospice)? DNR status @ -[No] What co-morbidities impacted this encounter? (DM, HTN, Smoking, COPD, CAD, Cancer, CVA, ARF, Chemo, Hep., AIDS, mental health diagnosis, sleep apnea, morbid obesity)? @ -[None] Was patient admitted / discharged? Hospital course, mention meds given and route, prescriptions, significant lab abnormalities, going to OR and other pertinent info. @ -[Patient is an 88-year-old man who presented with feeling dizzy and weak after having worked outside. On exam he does appear to be somewhat dry. The labs are consistent with some dehydration and the patient did have improvement in vital signs and was feeling better after IV fluids. Discussed results and the patient feels better and wants to go home. The patient will have close follow-up. We discussed return parameters. Undiagnosed new problem with uncertain prognosis? @ -[No] Drug Therapy requiring intensive monitoring for toxicity (Heparin, Nitro, Insulin, Cardizem)? @ -[No] Were any procedures done? @ -[No] Diagnosis/symptom? @ -[Acute dehydration Acute, or Chronic, or Acute on Chronic? @ -[Acute Uncomplicated (without systemic symptoms) or Complicated (systemic symptoms)? @ -[Uncomplicated Side effects of treatment? @ -[No] Exacerbation, Progression, or Severe Exacerbation? @ -[No] Poses a threat to life or bodily function? How? (Chest pain, [place], [place], pneumonia, PE, COPD, DKA, ARF, appy, cholecystitis, CVA, Diverticulitis, Homicidal, Suicidal, threat to staff... and all critical care pts) @ -[No] - Lab Data Result diagrams: 04/08/24 16:54 04/08/24 16:54 Lab Results 04/08/24 04/08/24 04/08/24 Range/Units 16:54 16:54 16:54 WBC 7.5 (3.8-10.6) k/uL RBC 4.43 (4.30-5.90) m/uL Hgb 13.1 (13.0-17.5) gm/dL Hct 41.4 (39.0-53.0) % MCV 93.6 (80.0-100.0) fL MCH 29.6 (25.0-35.0) pg MCHC 31.6 (31.0-37.0) g/dL RDW 13.3 (11.5-15.5) % Plt Count 165 (150-450) k/uL MPV 10.2 Neutrophils % 71 % Lymphocytes % 19 % Monocytes % 7 % Eosinophils % 2 % Basophils % 0 % Neutrophils # 5.3 (1.3-7.7) k/uL Lymphocytes # 1.4 (1.0-4.8) k/uL Monocytes # 0.5 (0-1.0) k/uL Eosinophils # 0.1 (0-0.7) k/uL Basophils # 0.0 (0-0.2) k/uL PT 11.1 (10.0-12.5) sec INR 1.0 (<1.2) APTT 25.2 (22.0-30.0) sec Sodium 135 L (137-145) mmol/L Potassium 4.5 (3.5-5.1) mmol/L Chloride 105 (98-107) mmol/L Carbon Dioxide 24 (22-30) mmol/L Anion Gap 6 mmol/L BUN 30 H (9-20) mg/dL Creatinine 1.02 (0.66-1.25) mg/dL Est GFR (CKD-EPI)AfAm 76 (>60 ml/min/1.73 sqM) Est GFR (CKD-EPI)NonAf 66 (>60 ml/min/1.73 sqM) Glucose 103 H (74-99) mg/dL Calcium 8.5 (8.4-10.2) mg/dL Magnesium 1.8 (1.6-2.3) mg/dL Total Bilirubin 0.9 (0.2-1.3) mg/dL AST 35 (17-59) U/L ALT 15 (4-49) U/L Alkaline Phosphatase 68 (38-126) U/L Troponin I (0.000-0.034) ng/mL Total Protein 6.7 (6.3-8.2) g/dL Albumin 3.7 (3.5-5.0) g/dL 04/08/24 Range/Units 16:54 WBC (3.8-10.6) k/uL RBC (4.30-5.90) m/uL Hgb (13.0-17.5) gm/dL Hct (39.0-53.0) % MCV (80.0-100.0) fL MCH (25.0-35.0) pg MCHC (31.0-37.0) g/dL RDW (11.5-15.5) % Plt Count (150-450) k/uL MPV Neutrophils % % Lymphocytes % % Monocytes % % Eosinophils % % Basophils % % Neutrophils # (1.3-7.7) k/uL Lymphocytes # (1.0-4.8) k/uL Monocytes # (0-1.0) k/uL Eosinophils # (0-0.7) k/uL Basophils # (0-0.2) k/uL PT (10.0-12.5) sec INR (<1.2) APTT (22.0-30.0) sec Sodium (137-145) mmol/L Potassium (3.5-5.1) mmol/L Chloride (98-107) mmol/L Carbon Dioxide (22-30) mmol/L Anion Gap mmol/L BUN (9-20) mg/dL Creatinine (0.66-1.25) mg/dL Est GFR (CKD-EPI)AfAm (>60 ml/min/1.73 sqM) Est GFR (CKD-EPI)NonAf (>60 ml/min/1.73 sqM) Glucose (74-99) mg/dL Calcium (8.4-10.2) mg/dL Magnesium (1.6-2.3) mg/dL Total Bilirubin (0.2-1.3) mg/dL AST (17-59) U/L ALT (4-49) U/L Alkaline Phosphatase (38-126) U/L Troponin I <0.012 (0.000-0.034) ng/mL Total Protein (6.3-8.2) g/dL Albumin (3.5-5.0) g/dL Disposition Clinical Impression: Dehydration, Palpitations Disposition: HOME SELF-CARE Condition: Fair Instructions (If sedation given, give patient instructions): Heart Palpitations (DC), Dehydration (ED) Is patient prescribed a controlled substance at d/c from ED?: No Referrals: [facility]inic [Primary Care Provider] - 1-2 days
[2024-04-08 17:14] LABS: Basophils % (A) 0 %; Eosinophils # (A) 0.1 k/uL (0-0.7); Eosinophils % (A) 2 %; HCT 41.4 % (39.0-53.0); HGB 13.1 gm/dL (13.0-17.5); Lymphocytes # (A) 1.4 k/uL (1.0-4.8); Lymphocytes % (A) 19 %; MCH 29.6 pg (25.0-35.0); MCHC 31.6 g/dL (31.0-37.0); MCV 93.6 fL (80.0-100.0); Mean Platelet Volume 10.2; Monocytes # (A) 0.5 k/uL (0-1.0); Monocytes % (A) 7 %; Neutrophils # (A) 5.3 k/uL (1.3-7.7); Neutrophils % (A) 71 %; Platelet Count 165 k/uL (150-450); RBC 4.43 m/uL (4.30-5.90); RDW 13.3 % (11.5-15.5); WBC 7.5 k/uL (3.8-10.6)
[2024-04-08 17:16] LABS: ALT 15 U/L (4-49); African American GFR (CKD) 76 (>60 ml/min/1.73 sqM); Anion Gap 6 mmol/L; Blood Urea Nitrogen 30 mg/dL (9-20); Calcium 8.5 mg/dL (8.4-10.2); Carbon Dioxide 24 mmol/L (22-30); Chloride 105 mmol/L (98-107); Glucose 103 mg/dL (74-99); Non-African American GFR(CKD) 66 (>60 ml/min/1.73 sqM); Sodium 135 mmol/L (137-145); Total Bilirubin 0.9 mg/dL (0.2-1.3)
[2024-04-08 17:24] LABS: AST 35 U/L (17-59); Albumin 3.7 g/dL (3.5-5.0); Alkaline Phosphatase 68 U/L (38-126); Magnesium 1.8 mg/dL (1.6-2.3); Potassium 4.5 mmol/L (3.5-5.1); Total Protein 6.7 g/dL (6.3-8.2)
[2024-04-08 17:31] LABS: Partial Thromboplastin Time 25.2 sec (22.0-30.0); Prothrombin Time 11.1 sec (10.0-12.5)
--- NOTE | 2024-04-08 18:24 | XR ---
EXAMINATION TYPE: XR chest 2V DATE OF EXAM: 04/08/2024 COMPARISON: 04/04/2024 HISTORY: 88-year-old male dysrhythmia, hypertension TECHNIQUE: PA and lateral views FINDINGS: Left anterior chest wall pacemaker generator with right atrial and right ventricular leads. Heart mil dly enlarged. Some strandy atelectasis at the left base and lesser degree at the right base. No other consolidation or pleural effusion. IMPRESSION: Mild cardiomegaly and some strandy basilar atelectasis. Otherwise, no definite acute process.
[2024-04-08] MEDS: SODIUM CHLORIDE 0.9% 1,000 ML IV ONE (19:06)
[2024-04-08 19:48] VITALS: BP 125/83; PULSE 60; RESP 18; TEMP 98.4
== END 2024-04-08 19:47 | disposition home or self-care (01) ==
LOC: EC 15:46
DX: E86.0 Dehydration (principal); R00.2 Palpitations; Z87.891 Personal history of nicotine dependence; Z88.5 Allergy status to narcotic agent; Z88.8 Allergy status to other drugs, medicaments and biological substances
CPT/HCPCS: 36415; 71046; 80053; 83735; 84484; 85025; 85610; 85730; 93005; 96360; 99285

== ENCOUNTER 2024-06-21 11:24 | Emergency (ER) | payer OTHER, MEDICARE ==
[2024-06-21] MEDS ORDERED: SODIUM CHLORIDE 0.9% 500 ML BAG ONE (12:14)
--- NOTE | 2024-07-23 06:09 | XR ---
Patient Van Duron ID [id number] Order # EXAMINATION TYPE: XR chest 2V DATE OF EXAM: 06/21/2024 COMPARISON: No comparison available on downtime PACS. INDICATION: Dizziness hypotension TECHNIQUE: Frontal and lateral views of the chest are obtained. FINDINGS: The heart size is mildly prominent. The pulmonary vasculature is normal. The lungs are clear. Pacemaker overlies left chest IMPRESSION: 1. No acute pulmonary process.
== END 2024-06-21 14:40 | disposition home or self-care (01) ==
LOC: EC 11:24
CPT/HCPCS: 71046; 93005; 96360; 99285

== ENCOUNTER 2024-06-26 12:35 | Emergency (ER) | payer OTHER, MEDICARE ==
[2024-06-26] MEDS ORDERED: SODIUM CHLORIDE 0.9% 500 ML BAG ONE (13:30)
[2024-06-26] MEDS ORDERED: KETOROLAC 15 MG/ML 1 ML VIAL ONE (13:40)
== END 2024-06-26 17:00 | disposition home or self-care (01) ==
LOC: EC 12:35
DX: R42 Dizziness and giddiness (principal)
CPT/HCPCS: 93005; 96374; 99284

== ENCOUNTER → 2024-09-15 | Outpatient (CLI) | payer OTHER ==
--- NOTE | 2024-09-15 14:21 | US ---
EXAMINATION TYPE: US venous doppler duplex LE DATE OF EXAM: 09/15/2024 1:45 PM COMPARISON: NONE CLINICAL INDICATION: Male, 88 years old with history of R60.9 EDEMA; edema, Pain, Swelling TECHNIQUE: The lower extremity deep venous system is examined utilizing real time linear array sonog mendoza with graded compression, color doppler sonography, and spectral doppler. SIDE PERFORMED: bilateral FINDINGS: VESSELS IMAGED: Common Femoral Vein Deep Femoral Vein Greater Saphenous Vein * Femoral Vein Popliteal Vein Small Saphenous Vein * Proximal Calf Veins (* superficial vessels) Right Leg: Negative for DVT, Color Doppler imaging shows patency of the vessels. Spectral waveforms are within normal limits. Left Leg: Negative for DVT, Color Doppler imaging shows patency of the vessels. Spectral waveforms a re within normal limits. IMPRESSION: 1. Bilateral lower extremity ultrasound negative for deep venous thrombosis [facility], , 09/15/2024 2:18 PM
== END | disposition home or self-care (01) ==
LOC: RADUSWWP 13:02
PROVIDERS: ATTEND Family Medicine
DX: R60.0 Localized edema (principal)
CPT/HCPCS: 93922; 93970

== ENCOUNTER → 2025-02-05 | Outpatient (CLI) | payer OTHER ==
--- NOTE | 2025-02-05 10:41 | CT ---
EXAMINATION TYPE: CT chest wo con DATE OF EXAM: 02/05/2025 10:31 AM COMPARISON: 12/13/2024. CLINICAL INDICATION: Male, 89 years old with history of I71.20 THORACIC AORTIC ANEURYSM, WITHOUT RUPT URE,, Thoracic Aortic Aneurysm TECHNIQUE: Multiple axial images were obtained through the chest. Sagittal and coronal reformats were created for review. MIP was performed on a separate workstation. Contrast used: mL of (None if empty) Oral contrast used: (None if empty) CT DLP: 577 mGycm, Automated exposure control for dose reduction was used. FINDINGS: LUNGS/ PLEURA: Trace bilateral pleural effusions. Stable right lower lobe pulmonary nodulesr measurin g up to 4 mm. AIRWAY: Patent and unremarkable. HEART: Cardiomegaly is demonstrated. Coronary artery atherosclerotic changes and stents present. Car diac conduction leads terminating in the right ventricle and atrium. MEDIASTINUM: No gross evidence of adenopathy. Prominent lymph nodes throughout the mediastinum VASCULATURE: No aortic aneurysm. Ascending thoracic aorta ectasia up to 44 mm. MUSCULOSKELETAL: No acute osseous abnormalities SOFT TISSUES/LYMPH NODES: Mild gynecomastia changes bilaterally. LOWER NECK: No significant findings. UPPER ABDOMEN: No significant findings. IMPRESSION: 1. No aortic aneurysm. Ascending thoracic aorta ectasia up to 44 mm. Findings similar to prior given differences in technique. 2. Cardiomegaly with new trace bilateral pleural effusions. Correlate for congestive heart failure. 3. Stable right lower lobe pulmonary nodule measuring 4 mm. Follow up recommendations for incidental pulmonary nodules, if there are any, are per [employer] or [employer]. https://radiopaedia.org/articles/bmmarkddzs-jjhprer-poqrsnrdt-ywauim-[email or web address]-[email or web address]?lang=us [facility], , 02/05/2025 10:39 AM
== END | disposition home or self-care (01) ==
LOC: RADCTMAIN 09:45
PROVIDERS: ATTEND Surgery
DX: J90 Pleural effusion, not elsewhere classified (principal); R91.1 Solitary pulmonary nodule; I77.810 Thoracic aortic ectasia
CPT/HCPCS: 71250

== ENCOUNTER 2025-03-03 08:52 | Inpatient (IN) | payer OTHER, MEDICARE ==
[2025-03-03 10:16] LABS: Basophils # (A) 0.02 10*3/uL (0.00-0.10); Basophils % (A) 0.3 %; Eosinophils # (A) 0.11 10*3/uL (0.04-0.35); Eosinophils % (A) 1.4 %; HGB 13.8 g/dL (13.0-17.0); MCH 29.5 pg (27.0-32.0); MCHC 32.1 g/dL (32.0-37.0); MCV 91.9 fL (80.0-97.0); Mean Platelet Volume 11.2 fL (9.5-12.2); Monocytes # (A) 0.63 10*3/uL (0.20-1.00); Neutrophils # (A) 5.96 10*3/uL (1.80-7.70); Neutrophils % (A) 75.9 %; Platelet Count 171 10*3/uL (140-440); RBC 4.68 10*6/uL (4.40-5.60); WBC 7.85 10*3/uL (4.50-10.00)
--- NOTE | 2025-03-03 10:22 | XR ---
EXAMINATION TYPE: XR chest 2V DATE OF EXAM: 03/03/2025 10:14 AM COMPARISON: 12/13/2024 CLINICAL INDICATION: Male, 89 years old with history of difficulty breathing, shortness of breath TECHNIQUE: PA and lateral views FINDINGS: Left anterior chest wall pacemaker generator with right atrial and right ventricular leads. Heart mil d to moderately enlarged. Atherosclerotic arch calcifications. Mild tortuosity/ectasia of the thoraci c aorta is unchanged. Mild interstitial/vascular density without consolidation or pleural effusion. IMPRESSION: Mild to moderate cardiomegaly. Correlate for mild CHF with pulmonary vascular congestion. No jens pu lmonary edema. [facility], Workstation: [facility], 03/03/2025 10:20 AM
[2025-03-03 10:26] LABS: Appearance,Urine Clear (Clear); Bilirubin,Urine Negative (Negative); Blood,Urine Negative (Negative); Color,Urine Colorless; Glucose,Urine (UA) Negative (Negative); Ketones,Urine Negative (Negative); Leukocyte Esterase,Urine Negative (Negative); Nitrite,Urine Negative (Negative); PH, Urine 6.5 (5.0-8.0); Protein,Urine Negative (Negative); Specific Gravity,Urine 1.005 (1.001-1.035); Urobilinogen,Urine <2.0 mg/dL (<2.0)
[2025-03-03 10:32] LABS: INR 1.1 (<1.2); Partial Thromboplastin Time 26.1 sec (22.0-30.0)
[2025-03-03 10:34] LABS: ALT 21 U/L (4-49); AST 30 U/L (17-59); African American GFR (CKD) 87 (>60 ml/min/1.73 sqM); Alkaline Phosphatase 60 U/L (38-126); Anion Gap 8 mmol/L; Blood Urea Nitrogen 24 mg/dL (9-20); Calcium 9.8 mg/dL (8.4-10.2); Carbon Dioxide 29 mmol/L (22-30); Chloride 102 mmol/L (98-107); Glucose 107 mg/dL (74-99); Non-African American GFR(CKD) 75 (>60 ml/min/1.73 sqM); Potassium 4.2 mmol/L (3.5-5.1); Sodium 139 mmol/L (137-145); Total Bilirubin 0.9 mg/dL (0.2-1.3); Total Protein 6.8 g/dL (6.3-8.2)
[2025-03-03 10:42] LABS: NT-Pro-B-Type Natriuretic Pept 6100 pg/mL
[2025-03-03 10:55] LABS: Influenza A Not Detected (Not Detectd); Influenza B Not Detected (Not Detectd); RSV Not Detected (Not Detectd)
--- NOTE | 2025-03-03 11:33 | CT ---
EXAMINATION TYPE: CT angio chest DATE OF EXAM: 03/03/2025 11:02 AM COMPARISON: 02/05/2025 CLINICAL INDICATION: Male, 89 years old with history of dyspnea. History of ascending aneurysm; Dyspn ea, history of ascending aneurysm TECHNIQUE/CONTRAST: CTA scan of the thorax is performed with IV Contrast, patient injected with 100 ml mL of Isovue 370, MIP images are created and reviewed these are created on a separate workstation.. CT DLP: 533.8 mGycm, Automated exposure control for dose reduction was used. FINDINGS: Left anterior chest wall pacemaker generator with right atrial and right ventricular leads. Severe degenerative change left sternoclavicular joint. The heart is markedly moderately enlarged with small pericardial effusion measuring 9 mm thick. No fl attening of the interventricular septum though there is refluxing contrast into the hepatic veins. Sc attered three-vessel coronary artery calcifications, extensive within the LAD. Mild aneurysm aortic root at 4.4 cm. Aneurysm ascending aorta 4.5 cm, unchanged. Mild atherosclerotic calcifications are present throughout especially aortic arch and descending thor acic aorta. Conventional arch vessel branching anatomy. Similar ectatic upper descending thoracic aorta 3.8 cm an aneurysm lower descending thoracic aorta 3. 1 cm. Large caliber main right and left pulmonary arteries up to 3.2 cm suggesting underlying pulmonary art prabhu hypertension. There is breathing motion causing some limitation in assessment but otherwise, no p ulmonary embolus seen. Enlarged right hilar lymph node measuring 2.3 cm likely reactive. Additional scattered prominent but nonenlarged mediastinal lymph nodes are present. Lungs show mild diffuse bronchial wall thickening. Some septal lines in the lower lungs and trace rig ht pleural effusion. 6 mm posterolateral right basilar pulmonary nodule, axial image 19 not well seen previously. 4 mm subpleural pulmonary nodule lateral right base is unchanged. Some patchy groundglass changes at the left base remains. Strandy scarring or atelectasis inferior lingula redemonstrated. Minimal emphy sematous change. Left-sided colonic diverticulosis partially seen. Bones: Moderate degenerative disc disease mid to lower thoracic spine. IMPRESSION: 1. Given the cardiomegaly, small pericardial effusion, trace right pleural effusion, and pulmonary ar terial hypertension, correlate for mild CHF. 2. Some septal lines in lower lungs and minimal patchy groundglass change at the left base. Primarily related to CHF. 3. A couple nodules on the right measuring up to 6 mm. 6 month follow-up CT to reassess. 4. Stable 4.5 cm aneurysm ascending aorta and 3.1 cm aneurysm lower descending thoracic aorta. [facility], , 03/03/2025 11:31 AM
[2025-03-03] MEDS ORDERED: NALOXONE 0.4 MG/ML 1 ML VIAL IV PRN (11:56)
[2025-03-03] MEDS ORDERED: ONDANSETRON 4 MG/2 ML VIAL IVP PRN (11:56)
--- NOTE | 2025-03-03 12:00 | ED ---
General Adult HPI - General Chief complaint: Shortness of Breath Stated complaint: GERTRUDE Time Seen by Provider: 03/03/25 09:11 Source: patient, family, RN notes reviewed, old records reviewed Limitations: no limitations - History of Present Illness Initial comments: Patient is an 89-year-old male who presents emergency department complaining of exertional dyspnea and shortness of breath. [place] lightheaded at home as well. Does have a history significant for atrial fibrillation on blood thinners, hypertension, CAD, congestive heart failure and was recently initiated on diuretic medications. Patient does have a history of a watched aortic aneurysm, atrial fibrillation with a pacemaker on blood thinners, congestive heart failure as well.States he was outside doing work when he started having the symptoms. Came in and sat down and called his over and told her he was feeling short of breath which is why they present for further evaluation. Patient at rest currently does not have many symptoms of at all. Denies any cough, congestion, fevers, chest pain, shortness of breath currently. States that shortness of breath is worse with exertion. Mild worsening orthopnea as well. Denies PND. Endorses lower extremity edema as well. Presents for further evaluation. - Related Data Home Medications Medication Instructions Recorded Confirmed Aspirin EC [Ecotrin Low Dose] 81 mg PO DAILY 02/27/17 03/03/25 Acetaminophen Tab [Tylenol] 500 mg PO BID 10/06/19 03/03/25 Multivitamins, Thera [Multivitamin 1 tab PO DAILY 07/05/22 03/03/25 (formulary)] Tamsulosin [Flomax] 0.4 mg PO AC-SUPPER 07/05/22 03/03/25 Finasteride [Proscar] 5 mg PO DAILY 09/05/22 03/03/25 Apixaban [Eliquis] 5 mg PO BID 03/14/24 03/03/25 Zinc Gluconate [Zinc] 50 mg PO DAILY #0 03/14/24 03/03/25 hydrALAZINE HCL 25 mg PO TID PRN 04/03/24 03/03/25 Capsaicin 0.025% Cream 1 applic TOPICAL DAILY PRN 12/13/24 03/03/25 Lidocaine 5% Patch [Lidoderm] 1 patch TOPICAL DAILY 12/13/24 03/03/25 methocarbamoL [Robaxin] 500 mg PO BID 12/13/24 03/03/25 Ammonium Lactate Lotion 1 applic TOPICAL BID PRN 03/03/25 03/03/25 [Lac-Hydrin 12% Lotion] Furosemide [Lasix] 20 mg PO DAILY 03/03/25 03/03/25 Pregabalin [Lyrica] 100 mg PO BID 03/03/25 03/03/25 traZODone HCL [Desyrel] 50 mg PO DIRECTED 03/03/25 03/03/25 Allergies Allergy/AdvReac Type Severity Reaction Status Date / Time metoprolol AdvReac bradycardia Verified 03/03/25 10:47 papaverine [From Pavabid] AdvReac liver Verified 03/03/25 10:47 issues, turned yellow tramadol AdvReac Confusion Verified 03/03/25 10:47 Review of Systems ROS Statement: Those systems with pertinent positive or pertinent negative responses have been documented in the HPI. Review of Systems: CONST: Denies fever EYES: Denies blurry vision ENT: Denies nasal congestion C/V: Denies Chest pain RESP: Endorses exertional shortness of breath GI: Denies abdominal pain : Denies dysuria SKIN: Denies rash. MSK: Denies joint pain. NEURO: Denies headache ROS Other: All systems not noted in ROS Statement are negative. Past Medical History Past Medical History: Atrial Fibrillation, Hearing Disorder / Deafness, Hyperlipidemia, Hypertension, Myocardial Infarction ([place]) Additional Past Medical History / Comment(s): recent admission to [facility] elevated b/p 200s/100s, Bilateral hearing aid use,uses a replexa machine for chronic back pain Last Myocardial Infarction Date:: 2011 History of Any Multi-Drug Resistant Organisms: None Reported Past Surgical History: Heart Catheterization With Stent, Hernia Repair, Orthopedic Surgery Additional Past Surgical History / Comment(s): Left knee surgery, left ankle surgery, pt thinks 1 or 2 stents not sure in what vessel. pain clinic Past Anesthesia/Blood Transfusion Reactions: No Reported Reaction Date of Last Stent Placement:: 2011 Past Psychological History: No Psychological Hx Reported Smoking Status: Former smoker Past Alcohol Use History: None Reported Past Drug Use History: None Reported - Past Family History Father Family Medical History: Cancer Mother Family Medical History: Cancer General Exam - General Exam Comments Initial Comments: General: Appears in no acute distress. HEAD: Normal with no signs of head trauma. EYES: PERRLA, EOMI, conjunctiva normal, no discharge. ENT: Hearing grossly intact, normal oropharynx. RESPIRATORY: Clear breath sounds bilaterally. No wheezes, rales, or rhonchi. C/V: Regular rate and rhythm. S1 and S2 auscultated, bilateral lower extremity pitting edema, peripheral pulses 2+ and intact throughout ABD: Abd is soft, nontender, nondistended EXT: Normal range of motion, no obvious deformity SKIN: No rashes or lesions observed on exposed skin. NEURO: Alert and oriented x 4. No focal deficits Limitations: no limitations Course Vital Signs 03/03/25 03/03/25 03/03/25 08:53 09:44 12:53 Temperature 97.9 F 97.0 F L Pulse Rate 75 83 67 Respiratory 18 20 18 Rate Blood Pressure 129/80 130/88 147/91 O2 Sat by Pulse 95 95 96 Oximetry Medical Decision Making - Medical Decision Making Was pt. sent in by a medical professional or institution (, PA, [employer], urgent care, hospital, or residential...) When possible be specific @ -No Did you speak to anyone other than the patient for history (EMS, parent, family, police, friend...)? What history was obtained from this source @ -No Did you review nursing and triage notes (agree or disagree)? Why? @ -I reviewed and agree with nursing and triage notes Were old charts reviewed (outside hosp., previous admission, EMS record, old EKG, old radiological studies, urgent care reports/EKG's, residential records)? Report findings @ -No old charts were reviewed Differential Diagnosis (chest pain, altered mental status, abdominal pain women, abdominal pain men, vaginal bleeding, weakness, fever, dyspnea, syncope, headache, dizziness, GI bleed, back pain, seizure, CVA, palpatations, mental health, musculoskeletal)? @ -Differential Dyspnea: Coronary syndrome, arrhythmia, tamponade, asthma, COPD, pulmonary embolism, pneumonia, pneumothorax, pulmonary effusion, anaphylaxis, diabetic ketoacidosis, flailed chest, pulmonary contusion, diaphragmatic rupture, anemia, neuromuscular, this is not meant to be an all-inclusive list. EKG interpreted by me (3pts min.). @ -As above X-rays interpreted by me (1pt min.). @ -Chest x-ray reveals no obvious acute cardiopulmonary process. CT interpreted by me (1pt min.). @ -CT angiogram chest reveals stable aortic findings. No obvious aneurysmal acute issue. Patient does have a small pericardial effusion, trace right pleural effusion, as well as some pulmonary arterial hypertension with mild CHF. U/S interpreted by me (1pt. min.). @ -None done What testing was considered but not performed or refused? (CT, X-rays, U/S, labs)? Why? @ -None What meds were considered but not given or refused? Why? @ -None Did you discuss the management of the patient with other professionals (professionals i.e. , PA, [employer]ER, lab, RT, psych nurse, social worker school, skip load driver, teacher, quality officer, skilled nursing case manager)? Give summary @ -Discussed with the admitting provider, Dr. Crabtree who accepted the admissio n. Was smoking cessation discussed for >3mins.? @ -No Was critical care preformed (if so, how long)? @ -No Were there social determinants of health that impacted care today? How? (Homelessness, low income, unemployed, alcoholism, drug addiction, transportation, low edu. Level, literacy, decrease access to med. care, care home, rehab)? @ -No Was there de-escalation of care discussed even if they declined (Discuss DNR or withdrawal of care, Hospice)? DNR status @ -No What co-morbidities impacted this encounter? (DM, HTN, Smoking, COPD, CAD, Cancer, CVA, ARF, Chemo, Hep., AIDS, mental health diagnosis, sleep apnea, morbid obesity)? @ -None Was patient admitted / discharged? Hospital course, mention meds given and route, prescriptions, significant lab abnormalities, going to OR and other perti nent info. @ -Patient presents with lightheadedness and exertional dyspnea. Worse today but has had it somewhat over the last few days as well. Recently started on diuretics for congestive heart failure. We will obtain cardiopulmonary workup. Patient was in agreement this plan. Vitals are within except limits. Laboratory studies returned remarkable for elevated BNP of 6000. Troponin is indeterminate. Remainder the labs unremarkable. Chest x-ray shows pulmonary vascular congestions and findings consistent with CHF. EKG shows normal paced rhythm without any obvious acute process. On reevaluation, I discussed findings. As patient is symptomatic on exertion with some worsening orthopnea and lower extremity edema, patient will be admitted to observation for diuresis. Patient started on IV Lasix. Consult to cardiology placed. He was in agreement this plan. Discussed with the admitting provider, Dr. Crabtree who accepted the admission. Undiagnosed new problem with uncertain prognosis? @ -No Drug Therapy requiring intensive monitoring for toxicity (Heparin, Nitro, Insulin, Cardizem)? @ -No Were any procedures done? @ -No Diagnosis/symptom? @ -CHF exacerbation Acute, or Chronic, or Acute on Chronic? @ -Acute Uncomplicated (without systemic symptoms) or Complicated (systemic symptoms)? @ -Complicated Side effects of treatment? @ -No Exacerbation, Progression, or Severe Exacerbation? @ -No Poses a threat to life or bodily function? How? (Chest pain, [place], [place], pneumonia, PE, COPD, DKA, ARF, appy, cholecystitis, CVA, Diverticulitis, Homicidal, Suicidal, threat to staff... and all critical care pts) @ -Yes - Lab Data Result diagrams: 03/03/25 09:56 03/03/25 09:56 Lab Results 03/03/25 03/03/25 03/03/25 Range/Units 09:21 09:56 09:56 WBC 7.85 (4.50-10.00) 10*3/uL RBC 4.68 (4.40-5.60) 10*6/uL Hgb 13.8 (13.0-17.0) g/dL Hct 43.0 (39.6-50.0) % MCV 91.9 (80.0-97.0) fL MCH 29.5 (27.0-32.0) pg MCHC 32.1 (32.0-37.0) g/dL Plt Count 171 (140-440) 10*3/uL MPV 11.2 (9.5-12.2) fL Immature Gran % (Auto) 0.4 % Neutrophils % 75.9 % Lymphocytes % 14.0 % Monocytes % 8.0 % Eosinophils % 1.4 % Basophils % 0.3 % Immature Gran # 0.03 (0.00-0.04) 10*3/uL Neutrophils # 5.96 (1.80-7.70) 10*3/uL Lymphocytes # 1.10 (0.90-5.00) 10*3/uL Monocytes # 0.63 (0.20-1.00) 10*3/uL Eosinophils # 0.11 (0.04-0.35) 10*3/uL Basophils # 0.02 (0.00-0.10) 10*3/uL PT 12.0 (10.0-12.5) sec INR 1.1 (<1.2) APTT 26.1 (22.0-30.0) sec Sodium (137-145) mmol/L Potassium (3.5-5.1) mmol/L Chloride (98-107) mmol/L Carbon Dioxide (22-30) mmol/L Anion Gap mmol/L BUN (9-20) mg/dL Creatinine (0.66-1.25) mg/dL Est GFR (CKD-EPI)AfAm (>60 ml/min/1.73 sqM) Est GFR (CKD-EPI)NonAf (>60 ml/min/1.73 sqM) Glucose (74-99) mg/dL Plasma Lactic Acid Matthew (0.7-2.0) mmol/L Calcium (8.4-10.2) mg/dL Magnesium (1.6-2.3) mg/dL Total Bilirubin (0.2-1.3) mg/dL AST (17-59) U/L ALT (4-49) U/L Alkaline Phosphatase (38-126) U/L Troponin I 0.015 (0.000-0.034) ng/mL NT-Pro-B Natriuret Pep pg/mL Total Protein (6.3-8.2) g/dL Albumin (3.5-5.0) g/dL Urine Color Urine Appearance (Clear) Urine pH (5.0-8.0) Ur Specific [place] (1.001-1.035) Urine Protein (Negative) Urine Glucose (UA) (Negative) Urine Ketones (Negative) Urine Blood (Negative) Urine Nitrite (Negative) Urine Bilirubin (Negative) Urine Urobilinogen (<2.0) mg/dL Ur Leukocyte Esterase (Negative) Influenza Type A (PCR) (Not Detectd) Influenza Type B (PCR) (Not Detectd) RSV (PCR) (Not Detectd) SARS-CoV-2 (PCR) (Not Detectd) 03/03/25 03/03/25 03/03/25 Range/Units 09:56 09:56 09:56 WBC (4.50-10.00) 10*3/uL RBC (4.40-5.60) 10*6/uL Hgb (13.0-17.0) g/dL Hct (39.6-50.0) % MCV (80.0-97.0) fL MCH (27.0-32.0) pg MCHC (32.0-37.0) g/dL Plt Count (140-440) 10*3/uL MPV (9.5-12.2) fL Immature Gran % (Auto) % Neutrophils % % Lymphocytes % % Monocytes % % Eosinophils % % Basophils % % Immature Gran # (0.00-0.04) 10*3/uL Neutrophils # (1.80-7.70) 10*3/uL Lymphocytes # (0.90-5.00) 10*3/uL Monocytes # (0.20-1.00) 10*3/uL Eosinophils # (0.04-0.35) 10*3/uL Basophils # (0.00-0.10) 10*3/uL PT (10.0-12.5) sec INR (<1.2) APTT (22.0-30.0) sec Sodium 139 (137-145) mmol/L Potassium 4.2 (3.5-5.1) mmol/L Chloride 102 (98-107) mmol/L Carbon Dioxide 29 (22-30) mmol/L Anion Gap 8 mmol/L BUN 24 H (9-20) mg/dL Creatinine 0.91 (0.66-1.25) mg/dL Est GFR (CKD-EPI)AfAm 87 (>60 ml/min/1.73 sqM) Est GFR (CKD-EPI)NonAf 75 (>60 ml/min/1.73 sqM) Glucose 107 H (74-99) mg/dL Plasma Lactic Acid Matthew 1.2 (0.7-2.0) mmol/L Calcium 9.8 (8.4-10.2) mg/dL Magnesium 2.0 (1.6-2.3) mg/dL Total Bilirubin 0.9 (0.2-1.3) mg/dL AST 30 (17-59) U/L ALT 21 (4-49) U/L Alkaline Phosphatase 60 (38-126) U/L Troponin I (0.000-0.034) ng/mL NT-Pro-B Natriuret Pep 6100 pg/mL Total Protein 6.8 (6.3-8.2) g/dL Albumin 4.0 (3.5-5.0) g/dL Urine Color Colorless Urine Appearance Clear (Clear) Urine pH 6.5 (5.0-8.0) Ur Specific [place] 1.005 (1.001-1.035) Urine Protein Negative (Negative) Urine Glucose (UA) Negative (Negative) Urine Ketones Negative (Negative) Urine Blood Negative (Negative) Urine Nitrite Negative (Negative) Urine Bilirubin Negative (Negative) Urine Urobilinogen <2.0 (<2.0) mg/dL Ur Leukocyte Esterase Negative (Negative) Influenza Type A (PCR) (Not Detectd) Influenza Type B (PCR) (Not Detectd) RSV (PCR) (Not Detectd) SARS-CoV-2 (PCR) (Not Detectd) 03/03/25 Range/Units 09:56 WBC (4.50-10.00) 10*3/uL RBC (4.40-5.60) 10*6/uL Hgb (13.0-17.0) g/dL Hct (39.6-50.0) % MCV (80.0-97.0) fL MCH (27.0-32.0) pg MCHC (32.0-37.0) g/dL Plt Count (140-440) 10*3/uL MPV (9.5-12.2) fL Immature Gran % (Auto) % Neutrophils % % Lymphocytes % % Monocytes % % Eosinophils % % Basophils % % Immature Gran # (0.00-0.04) 10*3/uL Neutrophils # (1.80-7.70) 10*3/uL Lymphocytes # (0.90-5.00) 10*3/uL Monocytes # (0.20-1.00) 10*3/uL Eosinophils # (0.04-0.35) 10*3/uL Basophils # (0.00-0.10) 10*3/uL PT (10.0-12.5) sec INR (<1.2) APTT (22.0-30.0) sec Sodium (137-145) mmol/L Potassium (3.5-5.1) mmol/L Chloride (98-107) mmol/L Carbon Dioxide (22-30) mmol/L Anion Gap mmol/L BUN (9-20) mg/dL Creatinine (0.66-1.25) mg/dL Est GFR (CKD-EPI)AfAm (>60 ml/min/1.73 sqM) Est GFR (CKD-EPI)NonAf (>60 ml/min/1.73 sqM) Glucose (74-99) mg/dL Plasma Lactic Acid Matthew (0.7-2.0) mmol/L Calcium (8.4-10.2) mg/dL Magnesium (1.6-2.3) mg/dL Total Bilirubin (0.2-1.3) mg/dL AST (17-59) U/L ALT (4-49) U/L Alkaline Phosphatase (38-126) U/L Troponin I (0.000-0.034) ng/mL NT-Pro-B Natriuret Pep pg/mL Total Protein (6.3-8.2) g/dL Albumin (3.5-5.0) g/dL Urine Color Urine Appearance (Clear) Urine pH (5.0-8.0) Ur Specific [place] (1.001-1.035) Urine Protein (Negative) Urine Glucose (UA) (Negative) Urine Ketones (Negative) Urine Blood (Negative) Urine Nitrite (Negative) Urine Bilirubin (Negative) Urine Urobilinogen (<2.0) mg/dL Ur Leukocyte Esterase (Negative) Influenza Type A (PCR) Not Detected (Not Detectd) Influenza Type B (PCR) Not Detected (Not Detectd) RSV (PCR) Not Detected (Not Detectd) SARS-CoV-2 (PCR) Not Detected (Not Detectd) - EKG Data -: EKG Interpreted by Me EKG Comments: 12-lead Electrocardiogram Interpretation Note EKG was reviewed and interpreted by myself. 12-lead ECG performed at 0921 is interpreted by me as revealing paced rhythm at a rate of 61 beats per minute. Indeterminate axis. QRS durations 189 ms, QTc is 508 ms.. There were no ST or T wave abnormalities to suggest myocardial ischemia or injury. R wave progression across the precordium was delayed. By my interpretation this EKG is non-diagnostic for acute ischemia. Disposition Clinical Impression: CHF (congestive heart failure), Exertional dyspnea Disposition: ADMITTED IP TO THIS HOSP Condition: Stable Time of Disposition: 11:55
[2025-03-03] MEDS: FUROSEMIDE 10 MG/ML 4 ML VIAL IV STA (12:55)
[2025-03-03] MEDS: ASPIRIN 81 MG PO STA (12:55)
[2025-03-03] MEDS ORDERED: hydrALAZINE HCL 25 MG TAB PO PRN (13:43)
[2025-03-03] MEDS ORDERED: ACETAMINOPHEN TAB 325 MG TAB PO PRN (13:45)
--- NOTE | 2025-03-03 16:10 | P.HPIM ---
History of Present Illness H&P Date: 03/03/25 History of Presenting Illness: Patient is a very pleasant 89-year-old male with a past medical history of CAD status post stenting of proximal LAD, symptomatic bradycardia/sick sinus syndrome status post permanent pacemaker placement, 4.5 cm ascending aortic aneurysm and a 3.1 cm descending thoracic aneurysm, chronic diastolic heart failure, paroxysmal atrial fibrillation on anticoagulation with Eliquis, hypertension, hyperlipidemia, peripheral neuropathy on Lyrica, BPH, and bilateral hearing loss. He presented to the emergency department with a chief complaint of shortness of breath and dizziness/lightheadedness. Patient reports the symptoms began on Sunday and were initially intermittent and only seem to be with exertion. He reports the symptoms progressively worsened over the past 4 days. He states he has been taking his Lasix as prescribed but also noticed a little bit of swelling in his feet and ankles. He denies having any headache, fevers or chills, changes in vision or hearing, chest pain or palpitations, cough or congestion, nausea, vomiting, changes in appetite, or experiencing any numbness/tingling/weakness in his extremities. Upon arrival to our facility, patient underwent evaluation in the emergency department. Vital signs upon arrival show blood pressure 129/80, heart rate 75, respiratory rate 18, temp 97.9 F, and SpO2 of 95% on room air. EKG completed showing ventricular paced rhythm at 61 bpm. Chest x-ray completed showing mild to moderate cardiomegaly with pulmonary vascular congestion consistent with mild CHF exacerbation. CTA Chest completed showing cardiomegaly, small pericardial effusion, trace right pleural effusion, and pulmonary arterial hypertension consistent with mild CHF, septal lines in the lower lungs and minimal groundglass opacity at the left base primarily related to CHF, a couple nodules in the right measuring up to 6 mm recommending outpatient follow-up CT for surveillance/reassessment, and a stable 4.5 cm ascending aortic aneurysm and a 3.1 cm aneurysm of the lower descending thoracic aorta. Labs completed and reviewed. CBC unremarkable. Coagulation profile normal findings. BMP showing mild prerenal azotemia with BUN of 24 otherwise normal findings. Blood glucose 107. Lactic acid 1.2. Magnesium 2.0. Liver profile unremarkable. proBNP 6100. Troponin was 0.015. Cepheid 4 Plex viral panel negative. Patient admitted under services with consultation to cardiology. Review of systems: Pertinent positives and negatives as discussed in HPI, a complete review of systems was performed and all other systems are negative. Physical exam: Vital signs reviewed and stable. General: Nontoxic, no distress and appears stated age. Derm: Skin warm and dry, normal coloration for ethnicity. Head: Atraumatic, normocephalic and symmetric. Eyes: EOM's intact, no lid lag, and anicteric sclera Mouth: no lip lesions, mucus membranes moist Cardiovascular: regular rate and rhythm with normal S1S2, soft systolic murmur, positive posterior tibial pulses bilaterally, and cap refill < 2 seconds. Lungs: Respirations even, regular, and unlabored on room air. Lungs CTA bilaterally, no rhonchi, no rales, no wheezing, and no accessory muscle usage. Abdominal: soft, nontender to palpation, no guarding, no appreciable organomegaly Ext: ROM intact. No gross muscle atrophy, scant lower extremity edema, no contractures Neuro: Speech clear, face symmetrical and CN II-XII grossly intact with no noted focal neuro deficits Psych: Alert and oriented to person, place, time, and situation. Appropriate and pleasant affect. Assessment and Plan of Care: Acute on chronic diastolic heart failure exacerbation Exertional dyspnea, secondary to above CAD status post stenting Sick sinus syndrome status post permanent pacemaker placement Paroxysmal atrial fibrillation Hypertension Hyperlipidemia -Cardiology consulted, appreciate recommendations -Telemetry monitoring -Trend troponins -ProBNP 6100 -Daily weights with Close monitoring of I's and O's -Lasix 40 mg IVP every 12 hours -Continue cardiac medication regimen with aspirin 81 mg daily, Eliquis 5 mg twice daily, and patient started on atorvastatin 40 mg nightly. -Echocardiogram to be completed -Continued close monitoring of electrolytes while diuresing. Ascending aortic aneurysm Descending thoracic aortic aneurysm -CTA Chest completed showing a stable 4.5 cm ascending aortic aneurysm and a 3.1 cm aneurysm of the lower descending thoracic aorta. Pulmonary nodules - CTA reporting a couple nodules in the right lung measuring up to 6 mm recommending outpatient follow-up/surveillance. BPH -Continue Proscar 5 mg daily and Flomax 0.4 mg nightly. Data and imaging reviewed: As stated above in HPI. The patient is admitted with an anticipated less than 2 midnight stay for evaluation of exertional dyspnea CODE STATUS: Full code DVT prophylaxis: Eliquis Discussed with: Patient, patient's at bedside, RN, and ED physician. Anticipated discharge date: Pending clinical course, likely 24 to [address]: Home Patient was seen independently by Nurse Practitioner. This document was prepared using [employer] dictation software. Please allow for e rrors in television presenter while rare they do occur. Andrea Vallejo NP rendered care for this patient independently, reviewed the findings and plan as documented in the note above and agree with plan. I did not physically speak with or examine the patient on this date. Past Medical History Past Medical History: Atrial Fibrillation, Hearing Disorder / Deafness, Hyperlipidemia, Hypertension, Myocardial Infarction ([place]) Additional Past Medical History / Comment(s): recent admission to [facility] elevated b/p 200s/100s, Bilateral hearing aid use,uses a replexa machine for chronic back pain Last Myocardial Infarction Date:: 2011 History of Any Multi-Drug Resistant Organisms: None Reported Past Surgical History: Heart Catheterization With Stent, Hernia Repair, Orthopedic Surgery Additional Past Surgical History / Comment(s): Left knee surgery, left ankle surgery, pt thinks 1 or 2 stents not sure in what vessel. pain clinic Past Anesthesia/Blood Transfusion Reactions: No Reported Reaction Date of Last Stent Placement:: 2011 Past Psychological History: No Psychological Hx Reported Smoking Status: Former smoker Past Alcohol Use History: None Reported Past Drug Use History: None Reported - Past Family History Father Family Medical History: Cancer Mother Family Medical History: Cancer Medications and Allergies Home Medications Medication Instructions Recorded Confirmed Type Aspirin EC [Ecotrin Low Dose] 81 mg PO DAILY 02/27/17 03/03/25 History Acetaminophen Tab [Tylenol] 500 mg PO BID 10/06/19 03/03/25 History Multivitamins, Thera [Multivitamin 1 tab PO DAILY 07/05/22 03/03/25 History (formulary)] Tamsulosin [Flomax] 0.4 mg PO AC-SUPPER 07/05/22 03/03/25 History Finasteride [Proscar] 5 mg PO DAILY 09/05/22 03/03/25 History Apixaban [Eliquis] 5 mg PO BID 03/14/24 03/03/25 History Zinc Gluconate [Zinc] 50 mg PO DAILY #0 03/14/24 03/03/25 History hydrALAZINE HCL 25 mg PO TID PRN 04/03/24 03/03/25 History Capsaicin 0.025% Cream 1 applic TOPICAL DAILY PRN 12/13/24 03/03/25 History Lidocaine 5% Patch [Lidoderm] 1 patch TOPICAL DAILY 12/13/24 03/03/25 History methocarbamoL [Robaxin] 500 mg PO BID 12/13/24 03/03/25 History Ammonium Lactate Lotion 1 applic TOPICAL BID PRN 03/03/25 03/03/25 History [Lac-Hydrin 12% Lotion] Furosemide [Lasix] 20 mg PO DAILY 03/03/25 03/03/25 History Pregabalin [Lyrica] 100 mg PO BID 03/03/25 03/03/25 History traZODone HCL [Desyrel] 50 mg PO DIRECTED 03/03/25 03/03/25 History Allergies Allergy/AdvReac Type Severity Reaction Status Date / Time metoprolol AdvReac bradycardia Verified 03/03/25 10:47 papaverine [From Pavabid] AdvReac liver Verified 03/03/25 10:47 issues, turned yellow tramadol AdvReac Confusion Verified 03/03/25 10:47 Physical Exam Vitals: Vital Signs Temp Pulse Resp BP Pulse Ox 03/03/25 12:53 97.0 F L 67 18 147/91 96 03/03/25 09:44 83 20 130/88 95 03/03/25 08:53 97.9 F 75 18 129/80 95 Intake and Output 03/02/25 03/03/25 03/03/25 22:59 06:59 14:59 Other: Weight 110.677 kg Results CBC & Chem 7: 03/03/25 09:56 03/03/25 09:56 Labs: Abnormal Lab Results - Last 24 Hours (Table) 03/03/25 Range/Units 09:56 BUN 24 H (9-20) mg/dL Glucose 107 H (74-99) mg/dL
[2025-03-03] MEDS: TAMSULOSIN 0.4 MG CAP.ER.24H PO SCH (17:45)
[2025-03-03] MEDS: FUROSEMIDE 10 MG/ML 4 ML VIAL IV SCH (20:19)
[2025-03-03] MEDS: methocarbamoL 500 MG TAB PO SCH (20:22)
[2025-03-03] MEDS: ATORVASTATIN 40 MG TAB PO SCH (20:22)
[2025-03-03] MEDS: APIXABAN 5 MG TAB PO SCH (20:22)
[2025-03-03] MEDS: PREGABALIN 100 MG CAP PO SCH (20:22)
[2025-03-03] MEDS: MELATONIN 3 MG TABLET PO PRN (20:30)
[2025-03-04 08:17] LABS: Basophils # (A) 0.04 X 10*3/uL (0.00-0.10); Basophils % (A) 0.7 %; Eosinophils # (A) 0.15 X 10*3/uL (0.04-0.35); Eosinophils % (A) 2.6 %; HCT 43.9 % (39.6-50.0); HGB 13.8 g/dL (13.0-17.0); Lymphocytes # (A) 1.08 X 10*3/uL (0.90-5.00); Lymphocytes % (A) 18.5 %; MCH 29.5 pg (27.0-32.0); MCHC 31.4 g/dL (32.0-37.0); MCV 93.8 FL (80.0-97.0); Mean Platelet Volume 11.4 FL (9.5-12.2); Monocytes # (A) 0.55 X 10*3/uL (0.20-1.00); Monocytes % (A) 9.4 %; NRBC Per 100 WBC 0 X 10*3/uL (0.00-0.01); Neutrophils % (A) 68.5 %; Platelet Count 179 X 10*3/uL (140-440); RBC 4.68 X 10*6/uL (4.40-5.60); RDW 14.1 % (11.5-14.5); WBC 5.84 X 10*3/uL (4.50-10.00)
[2025-03-04 08:34] LABS: ALT 19 U/L (10-49); AST 23 U/L (14-35); Albumin 3.8 g/dL (3.8-4.9); Albumin/Globulin Ratio 1.65 Ratio (1.60-3.17); Alkaline Phosphatase 64 U/L (41-126); Blood Urea Nitrogen 22.3 mg/dL (9.0-27.0); Calcium 9.2 mg/dL (8.7-10.3); Carbon Dioxide 28.6 mmol/L (21.6-31.8); Chloride 101 mmol/L (96-109); Globulin 2.3 g/dL (1.6-3.3); Glucose 102 mg/dL (70-110); Magnesium 2.2 mg/dL (1.5-2.4); Potassium 3.9 mmol/L (3.5-5.5); Sodium 140 mmol/L (135-145); Total Bilirubin 0.4 mg/dL (0.3-1.2); Total Protein 6.1 g/dL (6.2-8.2)
[2025-03-04] MEDS: LIDOCAINE 4% PATCH TOPICAL SCH (09:52)
[2025-03-04] MEDS: FINASTERIDE 5 MG TAB PO SCH (09:53)
[2025-03-04] MEDS: ASPIRIN 81 MG PO SCH (09:53)
[2025-03-04] MEDS: ZINC SULFATE 220 MG CAP PO SCH (09:53)
[2025-03-04] MEDS: MULTIVITAMINS, THERA 1 EACH TAB PO SCH (09:53)
--- NOTE | 2025-03-04 11:54 | P.PN ---
Subjective Progress Note Date: 03/04/25 Hospital Course: Patient is a very pleasant 89-year-old male with a past medical history of CAD status post stenting of proximal LAD, symptomatic bradycardia/sick sinus syndrome status post permanent pacemaker placement, 4.5 cm ascending aortic aneurysm and a 3.1 cm descending thoracic aneurysm, chronic diastolic heart failure, paroxysmal atrial fibrillation on anticoagulation with Eliquis, hypertension, hyperlipidemia, peripheral neuropathy on Lyrica, BPH, and bilateral hearing loss. He presented to the emergency department with a chief complaint of shortness of breath and dizziness/lightheadedness. Patient reports the symptoms began on Sunday and were initially intermittent and only seem to be with exertion. He reports the symptoms progressively worsened over the past 4 days. He states he has been taking his Lasix as prescribed but also noticed a little bit of swelling in his feet and ankles. He denies having any headache, fevers or chills, changes in vision or hearing, chest pain or palpitations, cough or congestion, nausea, vomiting, changes in appetite, or experiencing any numbness/tingling/weakness in his extremities. Upon arrival to our facility, patient underwent evaluation in the emergency department. Vital signs upon arrival show blood pressure 129/80, heart rate 75, respiratory rate 18, temp 97.9 F, and SpO2 of 95% on room air. EKG completed showing ventricular paced rhythm at 61 bpm. Chest x-ray completed showing mild to moderate cardiomegaly with pulmonary vascular congestion consistent with mild CHF exacerbation. CTA Chest completed showing cardiomegaly, small pericardial effusion, trace right pleural effusion, and pulmonary arterial hypertension consistent with mild CHF, septal lines in the lower lungs and minimal groundglass opacity at the left base primarily related to CHF, a couple nodules in the right measuring up to 6 mm recommending outpatient follow-up CT for surveillance/reassessment, and a stable 4.5 cm ascending aortic aneurysm and a 3.1 cm aneurysm of the lower descending thoracic aorta. Labs completed and reviewed. CBC unremarkable. Coagulation profile normal findings. BMP showing mild prerenal azotemia with BUN of 24 otherwise normal findings. Blood glucose 107. Lactic acid 1.2. Magnesium 2.0. Liver profile unremarkable. proBNP 6100. Troponin was 0.015. Cepheid 4 Plex viral panel negative. Patient admitted under services with consultation to cardiology. Troponins were trended resulting at 0.015, 0.014, and less than 0.012. Echocardiogram showing a moderately to severe reduced EF of 25 to 30% with moderate mitral regurgitation, mild tricuspid regurgitation, and aortic root dilation. Physical exam: Patient seen and fully evaluated at bedside. He was resting comfortably with at bedside. Patient reports shortness of breath improved at rest but worsens with minimal exertion. Home oxygen evaluation showing patient becoming hypoxic with minimal exertion desaturating down to 84% on room air requiring supplemental oxygen. Vital signs reviewed and stable. General: Nontoxic, no distress and appears stated age. Derm: Skin warm and dry, normal coloration for ethnicity. Head: Atraumatic, normocephalic and symmetric. Eyes: EOM's intact, no lid lag, and anicteric sclera Mouth: no lip lesions, mucus membranes moist Cardiovascular: regular rate and rhythm with normal S1S2, soft systolic murmur, positive posterior tibial pulses bilaterally, and cap refill < 2 seconds. Lungs: Respirations even, regular, and unlabored on 3 L O2. Lungs diminished, soft bibasilar crackles. No wheezing, rhonchi, or rales. Abdominal: soft, nontender to palpation, no guarding, no appreciable organomegaly Ext: ROM intact. No gross muscle atrophy, scant lower extremity edema, no contractures Neuro: Speech clear, face symmetrical and CN II-XII grossly intact with no noted focal neuro deficits Psych: Alert and oriented to person, place, time, and situation. Appropriate and pleasant affect. Assessment and Plan of Care: Acute systollic heart faiure exacerbation Exertional dyspnea, secondary to above CAD status post stenting Sick sinus syndrome status post permanent pacemaker placement Paroxysmal atrial fibrillation Hypertension Hyperlipidemia -Cardiology consulted, appreciate recommendations -Telemetry monitoring -Echocardiogram showing a moderately to severe reduced EF of 25 to 30% with moderate mitral regurgitation, mild tricuspid regurgitation, and aortic root dilation. (Previous echocardiogram completed 03/14/2024 showing preserved EF of 55 to 60%) -Troponins were trended resulting at 0.015, 0.014, and less than 0.012.. ProBNP 6100 -Daily weights with Close monitoring of I's and O's -Lasix 40 mg IVP every 12 hours -Continue cardiac medication regimen with aspirin 81 mg daily, Eliquis 5 mg twice daily, and patient started on atorvastatin 40 mg nightly. -Continued close monitoring of electrolytes while diuresing. Ascending aortic aneurysm Descending thoracic aortic aneurysm -CTA Chest completed showing a stable 4.5 cm ascending aortic aneurysm and a 3.1 cm aneurysm of the lower descending thoracic aorta. Pulmonary nodules - CTA reporting a couple nodules in the right lung measuring up to 6 mm recommending outpatient follow-up/surveillance. BPH -Continue Proscar 5 mg daily and Flomax 0.4 mg nightly. Data and imaging reviewed: Vital signs reviewed. Blood pressure 141/80, heart rate 66, respiratory rate 20, and SpO2 of 93% on 3L. Ambulatory pulse ox was completed patient 89% on room air at rest desaturating to 84% with minimal exertion. Patient requiring supplemental oxygen of 3 L and SpO2 increasing to 95%. Morning labs reviewed. CBC unremarkable. BMP normal findings. Blood glucose 102. Magnesium 2.2. Calcium 9.2. Liver profile showing normal findings. CODE STATUS: Full code DVT prophylaxis: Eliquis Discussed with: Patient, patient's at bedside, RN, and Cardiology [employer] PLAYER Anticipated discharge date: Pending clinical course, inpatient admission order placed at this time secondary to significantly worsening EF and continued need for IV diuresis. Currently requiring oxygen supplementation, may need to repeat home oxygen eval after successful IV diuresis as patient may require home oxygen on discharge. Anticipated discharge place: Home Patient was seen independently by Nurse Practitioner. This document was prepared using [employer] dictation software. Please allow for errors in personal fitness manager while rare they do occur. Andrea Vallejo NP rendered care for this patient independently, reviewed the findings and plan as documented in the note above and agree with plan. I did not physically speak with or examine the patient on this date. Objective - Vital Signs Vital signs: Vital Signs Temp 98.7 F 03/04/25 07:00 Pulse 59 L 03/04/25 07:00 Resp 15 03/04/25 07:00 BP 134/75 03/04/25 07:00 Pulse Ox 93 L 03/04/25 07:00 FiO2 Intake & Output 03/03/25 03/04/25 03/04/25 18:59 06:59 18:59 Weight 110.677 kg 83.5 kg Other: Voiding Method Toilet # Voids 1 - Labs CBC & Chem 7: 03/04/25 04:57 03/04/25 04:57 Labs: Abnormal Lab Results - Last 24 Hours (Table) 03/03/25 03/04/2503/04/25 Range/Units 09:56 04:57 04:57 MCHC 31.4 L (32.0-37.0) g/dL BUN 24 H (9-20) mg/dL BUN/Creatinine Ratio 22.30 H (12.00-20.00) Ratio Glucose 107 H (74-99) mg/dL Total Protein 6.1 L (6.2-8.2) g/dL
--- NOTE | 2025-03-04 13:49 | CA ---
Transthoracic Echo Report Name: Van Duron Age: 89 Gender: M : 1935 Exam Date: 03/03/2025 17:00 Exam Location: [facility] Ht (in): 71 Wt (lb): 244 Ordering Physician: Andrea Vallejo Attending/Referring Phys: Front End Driver Magalys Ponce RDCS Procedure CPT: Indications: CHF, SOB, dizziness Cardiac Hx: Technical Quality: Good Contrast 1: Definity Total Dose (mL): 3 Contrast 2: Total Dose (mL): MEASUREMENTS (Male / Female) Normal Values 2D ECHO LV Diastolic Diameter PLAX 6.0 cm 4.2 - 5.9 / 3.9 - 5.3 cm LV Systolic Diameter PLAX 5.0 cm IVS Diastolic Thickness 1.3 cm 0.6 - 1.0 / 0.6 - 0.9 cm LVPW Diastolic Thickness 1.0 cm 0.6 - 1.0 / 0.6 - 0.9 cm LV Relative Wall Thickness 0.4 LVOT Diameter 2.5 cm LV Diastolic Volume MOD BP 233.3 cm??? 67 - 155 / 56 - 104 cm??? LV Systolic Volume MOD BP 176.4 cm??? 22 - 58 / 19 - 49 cm??? LV Ejection Fraction MOD BP 24.4 % >= 55 % LV Diastolic Volume MOD 4C 218.1 cm??? LV Systolic Volume MOD 4C 161.8 cm??? LV Ejection Fraction MOD 4C 25.8 % LV Diastolic Length 4C 9.6 cm LV Systolic Length 4C 8.9 cm LV Diastolic Volume MOD 2C 242.6 cm??? LV Systolic Volume MOD 2C 183.6 cm??? LV Ejection Fraction MOD 2C 24.3 % LV Diastolic Length 2C 9.9 cm LV Systolic Length 2C 9.4 cm LA Volume 134.7 cm??? 18 - 58 / 22 - 52 cm??? LA Volume Index 56.3 cm???/m??? 16 - 28 cm???/m??? Ascending Aorta Diameter 4.6 cm M-MODE LV Diastolic Diameter MM 6.4 cm 4.2 - 5.9 / 3.9 - 5.3 cm LV Systolic Diameter MM 5.5 cm IVS Diastolic Thickness MM 1.4 cm 0.6 - 1.0 / 0.6 - 0.9 cm LVPW Diastolic Thickness MM 1.7 cm 0.6 - 1.0 / 0.6 - 0.9 cm LV Relative Wall Thickness MM 0.5 0.24 - 0.42 / 0.22 - 0.42 LV Mass Index MM 209.1 g/m??? 49 - 115 / 43 - 95 g/m??? DOPPLER AV Peak Velocity 103.5 cm/s AV Peak Gradient 4.3 mmHg AV Mean Velocity 81.3 cm/s AV Mean Gradient 2.8 mmHg AV Velocity Time Integral 21.9 cm MR Peak Velocity 510.4 cm/s MR Peak Gradient 104.2 mmHg MR Flow Rate PISA 57.0 cm???/s MR ERO PISA 0.1 cm??? MR Regurgitant Volume PISA 20.2 cm??? TR Peak Velocity 215.8 cm/s TR Peak Gradient 18.6 mmHg Right Atrial Pressure 15.0 mmHg Pulmonary Artery Systolic Pressu 33.6 mmHg Right Ventricular Systolic Press 33.6 mmHg PV Peak Velocity 56.0 cm/s PV Peak Gradient 1.3 mmHg FINDINGS Left Ventricle Left ventricular ejection fraction is estimated at 25-30 %. Severely increased left ventricular mass. Mildly increased septal wall thickness. Severely increased posterior wall thickness. Severely decreased fractional shortening. Severely decreased midwall fractional shortening. Mildly increased left ventricular diastolic diameter. Severely increased left ventricular diastolic volume. Severely increased left ventricular systolic volume. Moderately increased left ventricular relative wall thickness. Severely decreased left ventricular ejection fraction. Severely reduced global left ventricular systolic function. Right Ventricle Mild right ventricular dilatation. Moderately reduced right ventricular global systolic function. Right ventricular systolic pressure within normal limits. Right Atrium Severe right atrial dilatation. Catheter/pacemaker wire in the right atrial cavity. Left Atrium Severely increased left atrial volume. Moderately increased left atrial area. Mitral Valve Mitral valve thickened. No evidence for mitral valve prolapse. No mitral stenosis. Moderate mitral regurgitation. Aortic Valve Trileaflet aortic valve. Diffuse thickening (sclerosis) of the aortic valve cusps without reduced excursion. No aortic stenosis. Trace aortic regurgitation. Tricuspid Valve Structurally normal tricuspid valve. No tricuspid stenosis. Mild tricuspid regurgitation. Pulmonic Valve Structurally normal pulmonic valve. No pulmonic stenosis. Trace pulmonic regurgitation. Pericardium Trace pericardial effusion. Aorta Moderate aortic dilatation at the level of the sinuses of valsalva (root). Moderately dilated proximal ascending aorta (tube). CONCLUSIONS Left ventricular ejection fraction 25 to 30% Mildly increased left ventricular wall thickness RVSP 33 Moderate mitral regurgitation Mild tricuspid regurgitation Aortic root dilation Previewed by: Dr. Ilan Decker DO (Electronically Signed) Final Date: 04 March 2025 13:48
--- NOTE | 2025-03-04 14:44 | P.CRDCN ---
History of Present Illness Consult date: 03/04/25 Consult reason: congestive heart failure (And exertional dyspnea) History of present illness: This is an 89-year-old male patient of Dr. Decker with past medical history of persistent atrial fibrillation with slow ventricular response, status post pacemaker, hypertension, hyperlipidemia, ascending aorta aneurysm 4.5 cm, chronic lower extremity edema, orthostatic hypotension. We have been asked to evaluate the patient for CHF and exertional dyspnea. Patient states that he came into the hospital due to lower extremity swelling that had been going on for a week along with some shortness of breath and some slight redness to the left lower extremity. He denies having any fever or chills. He denies cough. He denies chest pain or pressure. He does state he has some congestion in the morning. His states that he has been receiving hydralazine about 1 time per day. Also noted that the patient has not been sleeping well at bedtime and getting up and staying up during the night. He has had a weight loss. Patient was started on IV Lasix and states the swelling is better this morning. He still has slight redness to the left foot area. Blood pressure 134/75, heart rate 59, pulse ox 93% on room air. Patient has been started on IV Lasix 40 mg every 12 hours -EKG: Paced rhythm. -Chest x-ray: Mild to moderate cardiomegaly. Pulmonary vascular congestion. No jens pulmonary edema. -CTA chest revealed cardiomegaly, small pericardial effusion, trace right pleural effusion, pulmonary artery hypertension. Patchy groundglass change of the left base. Couple nodules. Stable 4.5 cm ascending aortic aneurysm and 3.1 cm aneurysm in the lower descending thoracic aorta. -Laboratory studies: CBC INR within normal limits. BUN 24, creatinine 0.91. Troponin negative x 3. proBNP 6100. Potassium 4.2, magnesium 2.0. Cepheid viral panel not detected. Urinalysis negative. -Home cardiac medications: Eliquis 5 mg twice daily, aspirin 81 mg daily, Lasix 20 mg daily, hydralazine 25 mg 3 times daily as needed for systolic blood pressure greater than 180. -Echocardiogram performed at [facility] on 03/2024 revealed EF 55 to 60%, mild mitral regurgitation, mild tricuspid regurgitation. -Lexiscan Cardiolite stress test performed in the office in 03/2020 revealed inconclusive EKG due to baseline abnormalities. Normal myocardial perfusion and function. Review Of Systems: At the time of my exam: CONSTITUTIONAL: Denies fever or chills. HEENT: Denies blurred vision, vision changes, or eye pain. Denies hemoptysis CARDIOVASCULAR: Denies chest pain. Denies orthopnea. Denies PND. Denies palpitations RESPIRATORY: Denies shortness of breath. GASTROINTESTINAL: Denies abdominal pain. Denies nausea or vomiting. HEMATOLOGIC: Denies bleeding disorders. GENITOURINARY: Denies any blood in urine. SKIN: Denies puritis. Denies rash. Physical examination: Gen: This is an 89-year-old male in no acute distress VS: reviewed HEENT: Head is atraumatic, normocephalic. Pupils equal, round. Sclerae is anicteric. NECK: Supple. No JVD. LUNGS: Clear to auscultation. No wheezes or rhonchi. No intercostal retraction s. HEART: Regular rate and rhythm. No murmur. ABDOMEN: Soft No tenderness. EXTREMITIES: Mild edema to both lower extremities, slight erythema to the left foot. No calf tenderness. NEUROLOGICAL: Patient is awake, alert and oriented. Assessment: Acute on chronic diastolic heart failure Persistent atrial fibrillation Status post pacemaker Hypertension Hyperlipidemia Ascending aortic aneurysm, stable Chronic lower extremity edema Orthostatic hypotension Plan: Resume patient's home cardiac medications Continue patient on IV Lasix 40 mg every 12 hours for another 24 hours transition to oral tomorrow Monitor ASHANTI, daily weights, electrolytes and renal function Obtain 2-D echocardiogram and Doppler study to assess cardiac structure and function Plan for discharge home on Further recommendations to follow based upon clinical course Thank you kindly for this consultation. Nurse practitioner note has been reviewed, I agree with documented findings and plan of care. Patient was seen and examined. Past Medical History Past Medical History: Atrial Fibrillation, Hearing Disorder / Deafness, Hyperlipidemia, Hypertension, Myocardial Infarction ([place]) Additional Past Medical History / Comment(s): elevated b/p 200s/100s, Bilateral hearing aid use,uses a replexa machine for chronic back pain Last Myocardial Infarction Date:: 2011 History of Any Multi-Drug Resistant Organisms: None Reported Past Surgical History: Heart Catheterization With Stent, Hernia Repair, Orthopedic Surgery Additional Past Surgical History / Comment(s): Left knee surgery, left ankle surgery, pt thinks 1 or 2 stents not sure in what vessel. pain clinic Past Anesthesia/Blood Transfusion Reactions: No Reported Reaction Date of Last Stent Placement:: 2011 Past Psychological History: No Psychological Hx Reported Smoking Status: Former smoker Past Alcohol Use History: None Reported Additional Past Alcohol Use History / Comment(s): Quit smoking in 1969. Past Drug Use History: None Reported - Past Family History Father Family Medical History: Cancer Mother Family Medical History: Cancer Medications and Allergies Home Medications Medication Instructions Recorded Confirmed Type Aspirin EC [Ecotrin Low Dose] 81 mg PO DAILY 02/27/17 03/03/25 History Acetaminophen Tab [Tylenol] 500 mg PO BID 10/06/19 03/03/25 History Multivitamins, Thera [Multivitamin 1 tab PO DAILY 07/05/22 03/03/25 History (formulary)] Tamsulosin [Flomax] 0.4 mg PO AC-SUPPER 07/05/22 03/03/25 History Finasteride [Proscar] 5 mg PO DAILY 09/05/22 03/03/25 History Apixaban [Eliquis] 5 mg PO BID 03/14/24 03/03/25 History Zinc Gluconate [Zinc] 50 mg PO DAILY #0 03/14/24 03/03/25 History hydrALAZINE HCL 25 mg PO TID PRN 04/03/24 03/03/25 History Capsaicin 0.025% Cream 1 applic TOPICAL DAILY PRN 12/13/24 03/03/25 History Lidocaine 5% Patch [Lidoderm] 1 patch TOPICAL DAILY 12/13/24 03/03/25 History methocarbamoL [Robaxin] 500 mg PO BID 12/13/24 03/03/25 History Ammonium Lactate Lotion 1 applic TOPICAL BID PRN 03/03/25 03/03/25 History [Lac-Hydrin 12% Lotion] Furosemide [Lasix] 20 mg PO DAILY 03/03/25 03/03/25 History Pregabalin [Lyrica] 100 mg PO BID 03/03/25 03/03/25 History traZODone HCL [Desyrel] 50 mg PO DIRECTED 03/03/25 03/03/25 History Allergies Allergy/AdvReac Type Severity Reaction Status Date / Time metoprolol AdvReac bradycardia Verified 03/03/25 10:47 papaverine [From Pavabid] AdvReac liver Verified 03/03/25 10:47 issues, turned yellow tramadol AdvReac Confusion Verified 03/03/25 10:47 Physical Exam Vitals: Vital Signs Temp Pulse Pulse Resp BP BP Pulse Ox 03/04/25 07:00 98.7 F 59 L 15 134/75 93 L 03/04/25 01:07 97.5 F L 58 L 16 115/62 93 L 03/03/25 23:15 97.3 F L 71 17 125/75 93 L 03/03/25 21:46 63 18 110/62 94 L 03/03/25 14:32 78 18 136/75 96 03/03/25 12:53 97.0 F L 67 18 147/91 96 03/03/25 09:44 83 20 130/88 95 03/03/25 08:53 97.9 F 75 18 129/80 95 Intake and Output 03/03/25 03/04/25 03/04/25 22:59 06:59 14:59 Other: Voiding Method Toilet # Voids 1 Weight 83.5 kg Results 03/04/25 04:57 03/05/25 06:35 Cardiac Enzymes 03/03/25 03/03/25 03/03/25 Range/Units 09:21 09:56 12:18 AST 30 (17-59) U/L Troponin I 0.015 0.014 (0.000-0.034) ng/mL 03/03/25 Range/Units 15:12 AST (17-59) U/L Troponin I <0.012 (0.000-0.034) ng/mL Coagulation 03/03/25 Range/Units 09:56 PT 12.0 (10.0-12.5) sec APTT 26.1 (22.0-30.0) sec CBC 03/03/25 Range/Units 09:56 WBC 7.85 (4.50-10.00) 10*3/uL RBC 4.68 (4.40-5.60) 10*6/uL Hgb 13.8 (13.0-17.0) g/dL Hct 43.0 (39.6-50.0) % Plt Count 171 (140-440) 10*3/uL Comprehensive Metabolic Panel 03/03/25 Range/Units 09:56 Sodium 139 (137-145) mmol/L Potassium 4.2 (3.5-5.1) mmol/L Chloride 102 (98-107) mmol/L Carbon Dioxide 29 (22-30) mmol/L BUN 24 H (9-20) mg/dL Creatinine 0.91 (0.66-1.25) mg/dL Glucose 107 H (74-99) mg/dL Calcium 9.8 (8.4-10.2) mg/dL AST 30 (17-59) U/L ALT 21 (4-49) U/L Alkaline Phosphatase 60 (38-126) U/L Total Protein 6.8 (6.3-8.2) g/dL Albumin 4.0 (3.5-5.0) g/dL Current Medications Generic Name Dose Route Start Last Admin Trade Name Freq PRN Reason Stop Dose Admin Acetaminophen 650 mg 03/03/25 13:45 Acetaminophen Tab 325 Mg Tab PO Q6HR PRN Mild Pain or Fever > 100.5 Apixaban 5 mg 03/03/25 21:00 03/03/25 20:22 Apixaban 5 Mg Tab PO 5 mg BID JANNETH Administration Protocol Aspirin 81 mg 03/04/25 09:00 Aspirin 81 Mg PO DAILY JANNETH Atorvastatin Calcium 40 mg 03/03/25 21:00 03/03/25 20:22 Atorvastatin 40 Mg Tab PO 40 mg HS JANNETH Administration Finasteride 5 mg 03/04/25 09:00 Finasteride 5 Mg Tab PO DAILY JANNETH Furosemide 40 mg 03/03/25 21:00 03/03/25 20:19 Furosemide 10 Mg/Ml 4 Ml Vial IV Not Given Q12HR JANNETH Hydralazine HCl 25 mg 03/03/25 13:43 Hydralazine Hcl 25 Mg Tab PO TID PRN BP over 180 Lidocaine 1 patch 03/04/25 09:00 Lidocaine 4% Patch TOPICAL DAILY JANNETH Melatonin 3 mg 03/03/25 13:45 03/03/25 20:30 Melatonin 3 Mg Tablet PO 3 mg HS PRN Administration Insomnia Methocarbamol 500 mg 03/03/25 21:00 03/03/25 20:22 Methocarbamol 500 Mg Tab PO 500 mg BID JANNETH Administration Multivitamins 1 each 03/04/25 09:00 Multivitamins, Thera 1 Each Tab PO DAILY JANNETH Naloxone HCl 0.2 mg 03/03/25 11:56 Naloxone 0.4 Mg/Ml 1 Ml Vial IV Q2M PRN Opioid Reversal Ondansetron HCl 4 mg 03/03/25 11:56 Ondansetron 4 Mg/2 Ml Vial IVP Q8HR PRN Nausea And Vomiting Pregabalin 100 mg 03/03/25 21:00 03/03/25 20:22 Pregabalin 100 Mg Cap PO 100 mg BID JANNETH Administration Tamsulosin HCl 0.4 mg 03/03/25 17:30 03/03/25 17:45 Tamsulosin 0.4 Mg Cap.Er.24h PO 0.4 mg AC-SUPPER JANNETH Administration Zinc Sulfate 220 mg 03/04/25 09:00 Zinc Sulfate 220 Mg Cap PO DAILY JANNETH Intake and Output 03/03/25 03/04/25 03/04/25 22:59 06:59 14:59 Other: Voiding Method Toilet # Voids 1 Weight 83.5 kg 03/03/25 09:56 03/03/25 09:56
[2025-03-05 07:24] VITALS: BP 127/82; PULSE 84; RESP 15; TEMP 97.2
[2025-03-05 07:43] LABS: African American GFR (CKD) 87 (>60 ml/min/1.73 sqM); Anion Gap 9 mmol/L; Blood Urea Nitrogen 23 mg/dL (9-20); Calcium 9.6 mg/dL (8.4-10.2); Carbon Dioxide 31 mmol/L (22-30); Chloride 97 mmol/L (98-107); Glucose 98 mg/dL (74-99); Non-African American GFR(CKD) 75 (>60 ml/min/1.73 sqM); Potassium 3.7 mmol/L (3.5-5.1); Sodium 137 mmol/L (137-145)
--- NOTE | 2025-03-05 12:56 | P.DS ---
Providers Date of admission: 03/03/25 11:57 Expected date of discharge: 03/05/25 Attending physician: Edgardo Crabtree Consults: 03/03/25 11:56 Consult Physician Routine Consulting Provider: [facility] Consult Reason/Comments: chf, exertional dyspnea Do you want consulting provider notified?: Yes [facility] Course: Discharge diagnosis: Acute systollic heart faiure exacerbation Exertional dyspnea, secondary to above CAD status post stenting Sick sinus syndrome status post permanent pacemaker placement Paroxysmal atrial fibrillation Hypertension Hyperlipidemia Ascending aortic aneurysm Descending thoracic aortic aneurysm Pulmonary nodules BPH Hospital course: Patient is a 89-year-old male with history of CAD status post stenting of proximal LAD, symptomatic bradycardia/sick sinus syndrome status post permanent pacemaker placement, 4.5 cm ascending aortic aneurysm, and a 3.1 cm descending thoracic aneurysm, chronic diastolic heart failure, paroxysmal atrial fibrillation on anticoagulation with Eliquis, hypertension, hyperlipidemia, peripheral neuropathy on Lyrica, BPH and bilateral hearing loss. Patient presented to the emergency department on 03/03/2025 with a chief complaint of shortness of breath and dizziness/lightheadedness. Patient reports the symptoms began on Sunday and were initially intermittent and only seem to be with exertion. He reports the symptoms progressively got worse over the past 4 days. Patient has been taking his Lasix as prescribed but has also noticed a bit of a swelling in his feet and ankles. Patient denies having any headache, fever, chills, changes in vision or hearing, chest pain or palpitations, cough, nausea, vomiting, changes in appetite, or experiencing any numbness/tingling/weakness in his extremities. Patient was evaluated in the emergency department. Initial chest x-ray showed mild to moderate cardiomegaly with findings correlate for mild CHF with pulmonary vascular congestion and no jens pulmonary edema. CT angiography of the chest showed small pericardial effusion, trace right pleural effusion, and pulmonary arterial hypertension, which correlate for mild CHF. There were also some septal lines and lower lungs and minimal patchy groundglass changes at the left base. A couple of nodules on the right measuring up to 6 mm was also found. It also showed a stable 4.5 cm aneurysm ascending aorta and 3.1 cm aneurysm in the lower descending thoracic aorta. EKG in the ER showed electronic ventricular pacemaker with a rate of 61 bpm, QTc interval of 508 ms. Echocardiogram performed on 03/03/2025 showed a left ventricular ejection fraction of 25 to 30%. Vitals on 03/05/2025 included temperature 97.2, pulse rate 84, respiratory rate 15, blood pressure 127/82, oxygen saturation at 96% on nasal cannula at 3 L/min. Most recent labs showed WBC of 5.84, hemoglobin 13.8, hematocrit 43.9, platelets 179, sodium 137, potassium 3.7, chloride 97, carbon dioxide 31, BUN 23, creatinine 0.91. Patient's troponins were 0.015, 0.014, less than 0.012. BNP of 6100. Patient was assessed on 03/05/2025. Patient's symptoms improved gradually throughout the course of hospitalization. Patient reports that his breathing has improved compared to how he felt during admission. Patient is stable to be discharged home once patient maintains a stable oxygen saturation on room air and recommended to follow-up with cardiology and PCP in 1 to 2 weeks after discharge. Lasix 40 mg daily and Farxiga 10 mg daily have been added to patient's home medication list. Physical examination: GENERAL: This is a 89-year-old in no apparent distress at the time of examination. Pleasant and cooperative. HEENT: Head is atraumatic, normocephalic. Pupils are equal, round, and reactive to light. Sclerae anicteric. Conjunctivae are clear. Mucus membranes of the mouth are moist. Neck is supple. RESPIRATORY: Clear to auscultation. No wheezes, rales, or rhonchi. No use of accessory muscles. Patient maintaining oxygen saturation greater than 92%. No chest wall tenderness is noted on palpation or with deep breathing. CARDIOVASCULAR: Regular rate and rhythm. S1 and S2 noted. No systolic or diastolic murmur auscultated. No JVD noted. No S3 or S4 noted. GASTROINTESTINAL: No distention noted. Abdomen soft and round. Normal active bowel sounds auscultated x 4 quadrants. No pain or tenderness noted upon palpation. INTEGUMENTARY: No cyanosis. No jaundice. No rashes noted. No cellulitis noted. EXTREMITIES: 2+ peripheral pulses. No evidence of peripheral edema. No calf tenderness noted. NEUROLOGIC: Cranial nerves II-XII intact. PSYCHIATRIC: Awake, alert, and oriented X 3. Appropriate affect. Intact judgement and insight. A total of 38 minutes of time were spent preparing this complex discharge summary. Patient was discharged on 03/05/2025 at 1157. I have seen and evaluated the patient today. Discussed with the resident and agree with the residents finding and plan as documented in the resident's note. Changes highlighted in blue font. Patient Condition at Discharge: Stable Plan - Discharge Summary New Discharge Prescriptions: New Furosemide [Lasix] 40 mg PO DAILY #90 tab Empagliflozin [Jardiance] 10 mg PO DAILY #30 tablet Atorvastatin [Lipitor] 40 mg PO HS #90 tab Continue Aspirin EC [Ecotrin Low Dose] 81 mg PO DAILY Acetaminophen Tab [Tylenol] 500 mg PO BID Zinc Gluconate [Zinc] 50 mg PO DAILY #0 Apixaban [Eliquis] 5 mg PO BID Capsaicin 0.025% Cream 1 applic TOPICAL DAILY PRN PRN Reason: Pain Ammonium Lactate Lotion [Lac-Hydrin 12% Lotion] 1 applic TOPICAL BID PRN PRN Reason: Dry Skin Pregabalin [Lyrica] 100 mg PO BID Multivitamins, Thera [Multivitamin (formulary)] 1 tab PO DAILY Tamsulosin [Flomax] 0.4 mg PO AC-SUPPER Finasteride [Proscar] 5 mg PO DAILY hydrALAZINE HCL 25 mg PO TID PRN PRN Reason: BP over 180 methocarbamoL [Robaxin] 500 mg PO BID Lidocaine 5% Patch [Lidoderm 5% Patch] 1 patch TOPICAL DAILY traZODone HCL [Desyrel] 50 mg PO DIRECTED Discontinued Furosemide [Lasix] 20 mg PO DAILY Discharge Medication List Aspirin EC [Ecotrin Low Dose] 81 mg PO DAILY 02/27/17 [History] Acetaminophen Tab [Tylenol] 500 mg PO BID 10/06/19 [History] Multivitamins, Thera [Multivitamin (formulary)] 1 tab PO DAILY 07/05/22 [History] Tamsulosin [Flomax] 0.4 mg PO AC-SUPPER 07/05/22 [History] Finasteride [Proscar] 5 mg PO DAILY 09/05/22 [History] Apixaban [Eliquis] 5 mg PO BID 03/14/24 [History] Zinc Gluconate [Zinc] 50 mg PO DAILY #0 03/14/24 [History] hydrALAZINE HCL 25 mg PO TID PRN 04/03/24 [History] Capsaicin 0.025% Cream 1 applic TOPICAL DAILY PRN 12/13/24 [History] Lidocaine 5% Patch [Lidoderm 5% Patch] 1 patch TOPICAL DAILY 12/13/24 [History] methocarbamoL [Robaxin] 500 mg PO BID 12/13/24 [History] Ammonium Lactate Lotion [Lac-Hydrin 12% Lotion] 1 applic TOPICAL BID PRN 03/03/25 [History] Pregabalin [Lyrica] 100 mg PO BID 03/03/25 [History] traZODone HCL [Desyrel] 50 mg PO DIRECTED 03/03/25 [History] Atorvastatin [Lipitor] 40 mg PO HS #90 tab 03/05/25 [Rx] Empagliflozin [Jardiance] 10 mg PO DAILY #30 tablet 03/05/25 [Rx] Furosemide [Lasix] 40 mg PO DAILY #90 tab 03/05/25 [Rx] Follow up Appointment(s)/Referral(s): Ilan Decker DO [STAFF PHYSICIAN] - 03/12/25 1:30 pm Isai Vargas DO [Primary Care Provider] - 1-2 days Patient Instructions/Handouts: Heart Failure (DC) Activity/Diet/Wound Care/Special Instructions: Please see your PCP and end user consultant. Discharge Disposition: HOME SELF-CARE
[2025-03-05] MEDS: DAPAGLIFLOZIN PROPANEDIOL 10 MG TABLET PO SCH (13:10)
--- NOTE | 2025-03-05 13:49 | P.PN ---
Subjective Progress Note Date: 03/05/25 Consult reason: congestive heart failure (And exertional dyspnea) History of present illness: This is an 89-year-old male patient of Dr. Decker with past medical history of persistent atrial fibrillation with slow ventricular response, status post pacemaker, hypertension, hyperlipidemia, ascending aorta aneurysm 4.5 cm, chronic lower extremity edema, orthostatic hypotension. We have been asked to evaluate the patient for CHF and exertional dyspnea. Patient states that he came into the hospital due to lower extremity swelling that had been going on for a week along with some shortness of breath and some slight redness to the left lower extremity. He denies having any fever or chills. He denies cough. He denies chest pain or pressure. He does state he has some congestion in the morning. His states that he has been receiving hydralazine about 1 time per day. Also noted that the patient has not been sleeping well at bedtime and getting up and staying up during the night. He has had a weight loss. Patient was started on IV Lasix and states the swelling is better this morning. He still has slight redness to the left foot area. Blood pressure 134/75, heart rate 59, pulse ox 93% on room air. Patient has been started on IV Lasix 40 mg every 12 hours -EKG: Paced rhythm. -Chest x-ray: Mild to moderate cardiomegaly. Pulmonary vascular congestion. No jens pulmonary edema. -CTA chest revealed cardiomegaly, small pericardial effusion, trace right pleural effusion, pulmonary artery hypertension. Patchy groundglass change of the left base. Couple nodules. Stable 4.5 cm ascending aortic aneurysm and 3.1 cm aneurysm in the lower descending thoracic aorta. -Laboratory studies: CBC INR within normal limits. BUN 24, creatinine 0.91. Troponin negative x 3. proBNP 6100. Potassium 4.2, magnesium 2.0. Cepheid viral panel not detected. Urinalysis negative. -Home cardiac medications: Eliquis 5 mg twice daily, aspirin 81 mg daily, Lasix 20 mg daily, hydralazine 25 mg 3 times daily as needed for systolic blood pressure greater than 180. -Echocardiogram performed at [facility] on 03/2024 revealed EF 55 to 60%, mild mitral regurgitation, mild tricuspid regurgitation. -Lexiscan Cardiolite stress test performed in the office in 03/2020 revealed inconclusive EKG due to baseline abnormalities. Normal myocardial perfusion and function. 03/05 Patient seen and examined. He has been maintained on IV Lasix 40 mg every 12 hours. Blood pressure 127/82, heart rate in the 60s80s, pulse ox 96% on 3 L na lakshmi cannula. Weight is down 3 and half kilograms. Blood work reveals potassium 3.7, sodium 137, BUN 23 creatinine 0.91. Echocardiogram reveals EF of 25 to 30%, mildly increased left ventricular wall thickness, RVSP 33, moderate mitral regurgitation, mild tricuspid regurgitation, aortic root dilation. Physical examination: Gen: This is an 89-year-old male in no acute distress VS: reviewed HEENT: Head is atraumatic, normocephalic. Pupils equal, round. Sclerae is anicteric. NECK: Supple. No JVD. LUNGS: Clear to auscultation. No wheezes or rhonchi. No intercostal retractions. HEART: Regular rate and rhythm. No murmur. ABDOMEN: Soft No tenderness. EXTREMITIES: Mild edema to both lower extremities, slight erythema to the left foot. No calf tenderness. NEUROLOGICAL: Patient is awake, alert and oriented. 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 Decker in 1 week Continue SGLT2 Plan for repeat echocardiogram in 6 to 8 weeks No beta-carolyn due to intolerance in the past with bradycardia Patient is cleared for discharge home today from cardiology perspective. Nurse practitioner note has been reviewed, I agree with documented findings and plan of care. Patient was seen and examined. Objective - Vital Signs Vital signs: Vital Signs Temp 97.2 F L 03/05/25 07:00 Pulse 84 03/05/25 07:00 Resp 15 03/05/25 07:00 BP 127/82 03/05/25 07:00 Pulse Ox 96 03/05/25 07:00 FiO2 Intake & Output 03/04/25 03/05/25 03/05/25 18:59 06:59 18:59 Intake Total 591 236 Output Total 1050 275 Balance -459 -39 Weight 80 kg Intake: Oral 591 236 Output: Urine 1050 275 Other: Voiding Method Toilet # Voids 1 - Labs CBC & Chem 7: 03/04/25 04:57 03/05/25 06:35 Labs: Abnormal Lab Results - Last 24 Hours (Table) 03/05/25 Range/Units 06:35 Chloride 97 L (98-107) mmol/L Carbon Dioxide 31 H (22-30) mmol/L BUN 23 H (9-20) mg/dL
[2025-03-06] MEDS ORDERED: FUROSEMIDE 40 MG TAB PO SCH (09:00)
== END 2025-03-05 13:54 | disposition home or self-care (01) | DRG 291 ==
LOC: EC 08:52 → 1SOBS 11:56 → OBSVTOIN 11:57 → 6NMEDSUR 18:25
PROVIDERS: ADMIT Student in an Organized Health Care Education/Training Program; ATTEND Student in an Organized Health Care Education/Training Program
DX: I11.0 Hypertensive heart disease with heart failure (principal); I50.33 Acute on chronic diastolic (congestive) heart failure; I31.39 Other pericardial effusion (noninflammatory); Z79.01 Long term (current) use of anticoagulants; I71.21 Aneurysm of the ascending aorta, without rupture; I48.19 Other persistent atrial fibrillation; I49.5 Sick sinus syndrome; I42.9 Cardiomyopathy, unspecified; G89.29 Other chronic pain; M54.9 Dorsalgia, unspecified; I71.23 Aneurysm of the descending thoracic aorta, without rupture; I25.10 Atherosclerotic heart disease of native coronary artery without angina pectoris; R91.8 Other nonspecific abnormal finding of lung field; I25.2 Old myocardial infarction; H91.93 Unspecified hearing loss, bilateral; E78.5 Hyperlipidemia, unspecified; I95.1 Orthostatic hypotension; N40.0 Benign prostatic hyperplasia without lower urinary tract symptoms; Z79.82 Long term (current) use of aspirin; Z79.899 Other long term (current) drug therapy; Z87.891 Personal history of nicotine dependence; Z95.0 Presence of cardiac pacemaker; Z97.4 Presence of external hearing-aid; Z95.5 Presence of coronary angioplasty implant and graft; Z88.5 Allergy status to narcotic agent; Z88.8 Allergy status to other drugs, medicaments and biological substances
CPT/HCPCS: 36415; 71046; 71275; 80048; 80053; 81003; 83605; 83735; 83880; 84484; 85025; 85610; 85730; 87636; 93005; 93306; 96374; 99285

== ENCOUNTER 2025-04-23 06:49 | Emergency (ER) | payer OTHER, MEDICARE ==
--- NOTE | 2025-04-23 07:14 | ED ---
Fall HPI - General Chief Complaint: Fall Stated Complaint: Fall on thinners Time Seen by Provider: 04/23/25 06:58 Source: patient, family, RN notes reviewed Mode of arrival: wheelchair - History of Present Illness Initial Comments: 89-year-old male presenting to emergency department after fall that occurred yesterday evening. Patient states that at 1999 yesterday he was in bed when he went to stand up putting his hands on a swivel chair that was unstable causing him to fall on the left-hand side of his chest hitting a chest that was on the ground. Patient denies hitting his head or loss conscious at the time of the fall. Patient's pain is located to the left lateral side of his chest that is worse with movement. Patient denies difficulty breathing, heart palpitations, dizziness, headache, neck pain. Patient is on Eliquis for history of A-fib and has pacemaker in place. Currently complaining of left lateral chest wall pain. - Related Data Home Medications Medication Instructions Recorded Confirmed Aspirin EC [Ecotrin Low Dose] 81 mg PO DAILY 02/27/17 03/03/25 Acetaminophen Tab [Tylenol] 500 mg PO BID 10/06/19 03/03/25 Multivitamins, Thera [Multivitamin 1 tab PO DAILY 07/05/22 03/03/25 (formulary)] Tamsulosin [Flomax] 0.4 mg PO AC-SUPPER 07/05/22 03/03/25 Finasteride [Proscar] 5 mg PO DAILY 09/05/22 03/03/25 Apixaban [Eliquis] 5 mg PO BID 03/14/24 03/03/25 Zinc Gluconate [Zinc] 50 mg PO DAILY #0 03/14/24 03/03/25 hydrALAZINE HCL 25 mg PO TID PRN 04/03/24 03/03/25 Capsaicin 0.025% Cream 1 applic TOPICAL DAILY PRN 12/13/24 03/03/25 Lidocaine 5% Patch [Lidoderm 5% 1 patch TOPICAL DAILY 12/13/24 03/03/25 Patch] methocarbamoL [Robaxin] 500 mg PO BID 12/13/24 03/03/25 Ammonium Lactate Lotion 1 applic TOPICAL BID PRN 03/03/25 03/03/25 [Lac-Hydrin 12% Lotion] Pregabalin [Lyrica] 100 mg PO BID 03/03/25 03/03/25 traZODone HCL [Desyrel] 50 mg PO DIRECTED 03/03/25 03/03/25 Previous Rx's Medication Instructions Recorded Atorvastatin [Lipitor] 40 mg PO HS #90 tab 03/05/25 Empagliflozin [Jardiance] 10 mg PO DAILY #30 tablet 03/05/25 Furosemide [Lasix] 40 mg PO DAILY #90 tab 03/05/25 Cephalexin [Keflex] 500 mg PO Q6HR 7 Days #28 cap 03/29/25 Sulfamethox-Tmp 800-160Mg [Bactrim 1 tab PO Q12HR 7 Days #14 tab 03/29/25 DS 800-160 mg] Allergies Allergy/AdvReac Type Severity Reaction Status Date / Time metoprolol AdvReac bradycardia Verified 04/23/25 06:56 papaverine [From Pavabid] AdvReac liver Verified 04/23/25 06:56 issues, turned yellow tramadol AdvReac Confusion Verified 04/23/25 06:56 Review of Systems ROS Statement: Those systems with pertinent positive or pertinent negative responses have been documented in the HPI. ROS Other: All systems not noted in ROS Statement are negative. Past Medical History Past Medical History: Atrial Fibrillation, Hearing Disorder / Deafness, Hyperlipidemia, Hypertension, Myocardial Infarction ([place]) Additional Past Medical History / Comment(s): elevated b/p 200s/100s, Bilateral hearing aid use,uses a replexa machine for chronic back pain. Pt has CHF and was hospitalized for 3 days 2 weeks ago Last Myocardial Infarction Date:: 2011 History of Any Multi-Drug Resistant Organisms: None Reported Past Surgical History: Heart Catheterization With Stent, Hernia Repair, Orthopedic Surgery Additional Past Surgical History / Comment(s): Left knee surgery, left ankle surgery, pt thinks 1 or 2 stents not sure in what vessel. pain clinic Past Anesthesia/Blood Transfusion Reactions: No Reported Reaction Date of Last Stent Placement:: 2011 Past Psychological History: No Psychological Hx Reported Smoking Status: Former smoker Past Alcohol Use History: None Reported Past Drug Use History: None Reported - Past Family History Father Family Medical History: Cancer Mother Family Medical History: Cancer General Exam General appearance: alert, in no apparent distress ENT exam: Present: normal exam, mucous membranes moist Neck exam: Present: normal inspection. Absent: tenderness, meningismus, lymphadenopathy Respiratory exam: Present: normal lung sounds bilaterally, chest wall tenderness (lateral left ribs to palpation and on movement). Absent: respiratory distress, wheezes, rales, rhonchi, stridor Cardiovascular Exam: Present: regular rate, normal rhythm, normal heart sounds. Absent: systolic murmur, diastolic murmur, rubs, gallop, clicks GI/Abdominal exam: Present: soft, normal bowel sounds. Absent: distended, tenderness, guarding, rebound, rigid Extremities exam: Present: normal inspection, full ROM, normal capillary refill. Absent: tenderness, pedal edema, joint swelling, calf tenderness Back exam: Present: normal inspection Neurological exam: Present: alert, oriented X3, CN II-XII intact Course Vital Signs 04/23/25 04/23/25 06:51 07:52 Temperature 97.8 F Pulse Rate 63 60 Respiratory 18 16 Rate Blood Pressure 116/66 116/63 O2 Sat by Pulse 92 L 93 L Oximetry Medical Decision Making - Medical Decision Making Was pt. sent in by a medical professional or institution ([facility], [employer]ING [employer] WHEEL REPAIRER, urgent care, hospital, or jail...) When possible be specific @ -No Did you speak to anyone other than the patient for history (EMS, parent, family, police, friend...)? What history was obtained from this source @ -@States that patient did not lose consciousness at the time of the fall did not hit his head yesterday evening. Did you review nursing and triage notes (agree or disagree)? Why? @ -I reviewed and agree with nursing and triage notes Were old charts reviewed (outside hosp., previous admission, EMS record, old EKG, old radiological studies, urgent care reports/EKG's, jail records)? Report findings @ -No old charts were reviewed Differential Diagnosis (chest pain, altered mental status, abdominal pain women, abdominal pain men, vaginal bleeding, weakness, fever, dyspnea, syncope, headache, dizziness, GI bleed, back pain, seizure, CVA, palpatations, mental health, musculoskeletal)? @ -Rib fracture, hemothorax, pulmonary contusion, this list is not all inclusive EKG interpreted by me (3pts min.). @ -none X-rays interpreted by me (1pt min.). @ -None done CT interpreted by me (1pt min.). @ -CT of the chest without contrast reveals left lateral eighth, ninth and lateral 10th rib fractures with no pneumothorax or hemothorax evident, cardiomegaly U/S interpreted by me (1pt. min.). @ -None done What testing was considered but not performed or refused? (CT, X-rays, U/S, labs)? Why? @ -None What meds were considered but not given or refused? Why? @ -None Did you discuss the management of the patient with other professionals (professionals i.e. , PA, BU[employer]ING [employer]ING WHEEL REPAIRER, lab, RT, psych nurse, social media marketing analyst, injection specialist, teacher, forward air controller/air officer, case worker)? Give summary @ -No Was smoking cessation discussed for >3mins.? @ -No Was critical care preformed (if so, how long)? @ -No Were there social determinants of health that impacted care today? How? (Homelessness, low income, unemployed, alcoholism, drug addiction, transportation, low edu. Level, literacy, decrease access to med. care, group home, rehab)? @ -No Was there de-escalation of care discussed even if they declined (Discuss DNR or withdrawal of care, Hospice)? DNR status @ -No What co-morbidities impacted this encounter? (DM, HTN, Smoking, COPD, CAD, Cancer, CVA, ARF, Chemo, Hep., AIDS, mental health diagnosis, sleep apnea, morbid obesity)? @ -None Was patient admitted / discharged? Hospital course, mention meds given and route, prescriptions, significant lab abnormalities, going to OR and other pertinent info. @ - Discharge. 89-year-old male presenting with rib pain after fall that occurred yesterday evening. Overall patient is well-appearing and resting company in examination bed no signs of respiratory distress. There are equal breath sounds heard bilaterally through all lung wilson. Patient is satting well on room air. He is provided with morphine for pain control as he took Tylenol prior to arrival. CT of the chest reveals 3 nondisplaced rib fractures with no evidence of pneumothorax or hemothorax. Patient is stable for discharge is provided with incentive spirometer. Recommend he continue Tylenol and lidocaine patches as needed. Return parameters have been discussed. Case discussed with Dr. Hernadez Undiagnosed new problem with uncertain prognosis? @ -No Drug Therapy requiring intensive monitoring for toxicity (Heparin, Nitro, Insulin, Cardizem)? @ -No Were any procedures done? @ -No Diagnosis/symptom? @ -nondisplaced rib fractures Acute, or Chronic, or Acute on Chronic? @ -acute Uncomplicated (without systemic symptoms) or Complicated (systemic symptoms)? @ -uncomplicated Side effects of treatment? @ -No Exacerbation, Progression, or Severe Exacerbation? @ -No Poses a threat to life or bodily function? How? (Chest pain, [place], [place], pneumonia, PE, COPD, DKA, ARF, appy, cholecystitis, CVA, Diverticulitis, Homicidal, Suicidal, threat to staff... and all critical care pts) @ -No Disposition Clinical Impression: Fall, Closed traumatic nondisplaced fracture of rib Disposition: HOME SELF-CARE Condition: Good Instructions (If sedation given, give patient instructions): How to Use an Incentive Spirometer (ED), Fall Prevention for Older Adults (ED) Additional Instructions: Please return to the Emergency Department if symptoms worsen or any other concerns. Is patient prescribed a controlled substance at d/c from ED?: No Referrals: Isai Vargas DO [Primary Care Provider] - 1-2 days Time of Disposition: 08:37
[2025-04-23] MEDS: MORPHINE SULFATE 4 MG/ML SYRINGE IM STA (07:19)
[2025-04-23 07:53] VITALS: PULSE 60
--- NOTE | 2025-04-23 08:22 | CT ---
EXAMINATION TYPE: CT chest wo con DATE OF EXAM: 04/23/2025 8:14 AM COMPARISON: 03/03/2025 CLINICAL INDICATION: Male, 89 years old with history of L lower rib pain after fall, on thinners, lef t lower rib pain after fall TECHNIQUE: Axial images were obtained at 5 mm thick sections. Reconstructed images are reviewed on t computer in the coronal plane. Contrast used: mL of , (none if empty) Oral contrast used: (none if empty) CT DLP: 650 mGycm, Automated exposure control for dose reduction was used. FINDINGS: Portion of the thyroid visualized is normal. No suspicious lung nodules or focal infiltrates are present. No pneumothorax is evident. No enlarged mediastinal or hilar adenopathy is evident. The ascending aorta diameter at the level o f the main pulmonary artery is 4.5 cm. The main pulmonary artery diameter at the bifurcation is 4.1 cm. Moderate coronary artery calcifications present. Cardiomegaly is present. Limited CT sections are obtained through the upper abdomen. There is a 3.8 cm right renal cyst. Left lateral eighth and ninth rib fractures and posterior lateral left 10th rib fracture. IMPRESSION: 1. Left lateral eighth and ninth posterior lateral 10th rib fractures. No pneumothorax or hemothorax evident. 2. [facility], , 04/23/2025 8:20 AM
[2025-04-23 08:43] VITALS: BP 116/61; RESP 18; TEMP 97.9
== END 2025-04-23 08:51 | disposition home or self-care (01) ==
LOC: EC 06:49
DX: S22.32XA Fracture of one rib, left side, initial encounter for closed fracture (principal); I48.91 Unspecified atrial fibrillation; Z95.0 Presence of cardiac pacemaker; Z79.01 Long term (current) use of anticoagulants; Z87.891 Personal history of nicotine dependence; Z88.5 Allergy status to narcotic agent; Z88.8 Allergy status to other drugs, medicaments and biological substances; W18.39XA Other fall on same level, initial encounter
CPT/HCPCS: 71250; 99283; 96372; J2270

== ENCOUNTER 2025-04-25 00:33 | Inpatient (IN) | payer OTHER, MEDICARE ==
--- NOTE | 2025-04-25 00:49 | ED ---
Chest Pain HPI - General Chief Complaint: Abdominal Pain Stated Complaint: weakness Time Seen by Provider: 04/25/25 00:38 Source: patient, EMS, RN notes reviewed, old records reviewed Mode of arrival: EMS Limitations: no limitations - History of Present Illness Initial Comments: This is a 89-year-old male with severe left-sided rib pain for left-sided rib tenderness with recent fall and rib fracture. Patient states his pain is uncontrollable at home he is on 3 days of rib fractures, no real shortness of breath just pain with a deep breath pain when he touches his left rib cage MD Complaint: chest pain, other (Left-sided rib pain) -: days(s) (3) Pain Location: left chest Severity: severe Severity scale (1-10): 10 Quality: sharp Consistency: constant Improves With: nothing Worsens With: inspiration Context: trauma/injury Anginal Symptoms: dyspnea Treatments Prior to Arrival: none - Related Data Home Medications Medication Instructions Recorded Confirmed Aspirin EC [Ecotrin Low Dose] 81 mg PO DAILY 02/27/17 03/03/25 Acetaminophen Tab [Tylenol] 500 mg PO BID 10/06/19 03/03/25 Multivitamins, Thera [Multivitamin 1 tab PO DAILY 07/05/22 03/03/25 (formulary)] Tamsulosin [Flomax] 0.4 mg PO AC-SUPPER 07/05/22 03/03/25 Finasteride [Proscar] 5 mg PO DAILY 09/05/22 03/03/25 Apixaban [Eliquis] 5 mg PO BID 03/14/24 03/03/25 Zinc Gluconate [Zinc] 50 mg PO DAILY #0 03/14/24 03/03/25 hydrALAZINE HCL 25 mg PO TID PRN 04/03/24 03/03/25 Capsaicin 0.025% Cream 1 applic TOPICAL DAILY PRN 12/13/24 03/03/25 Lidocaine 5% Patch [Lidoderm 5% 1 patch TOPICAL DAILY 12/13/24 03/03/25 Patch] methocarbamoL [Robaxin] 500 mg PO BID 12/13/24 03/03/25 Ammonium Lactate Lotion 1 applic TOPICAL BID PRN 03/03/25 03/03/25 [Lac-Hydrin 12% Lotion] Pregabalin [Lyrica] 100 mg PO BID 03/03/25 03/03/25 traZODone HCL [Desyrel] 50 mg PO DIRECTED 03/03/25 03/03/25 Previous Rx's Medication Instructions Recorded Atorvastatin [Lipitor] 40 mg PO HS #90 tab 03/05/25 Empagliflozin [Jardiance] 10 mg PO DAILY #30 tablet 03/05/25 Furosemide [Lasix] 40 mg PO DAILY #90 tab 03/05/25 Cephalexin [Keflex] 500 mg PO Q6HR 7 Days #28 cap 03/29/25 Sulfamethox-Tmp 800-160Mg [Bactrim 1 tab PO Q12HR 7 Days #14 tab 03/29/25 DS 800-160 mg] Allergies Allergy/AdvReac Type Severity Reaction Status Date / Time metoprolol AdvReac bradycardia Verified 04/25/25 00:41 papaverine [From Pavabid] AdvReac liver Verified 04/25/25 00:41 issues, turned yellow tramadol AdvReac Confusion Verified 04/25/25 00:41 Review of Systems ROS Statement: Those systems with pertinent positive or pertinent negative responses have been documented in the HPI. ROS Other: All systems not noted in ROS Statement are negative. EKG Findings - EKG Comments: EKG Findings:: EKG is paced 61 QRS 201 QTc 485 - EKG Results: EKG: interpreted by NISREEN Past Medical History Past Medical History: Atrial Fibrillation, Hearing Disorder / Deafness, Hyperlipidemia, Hypertension, Myocardial Infarction ([place]) Additional Past Medical History / Comment(s): elevated b/p 200s/100s, Bilateral hearing aid use,uses a replexa machine for chronic back pain. Pt has CHF and was hospitalized for 3 days 2 weeks ago Last Myocardial Infarction Date:: 2011 History of Any Multi-Drug Resistant Organisms: None Reported Past Surgical History: Heart Catheterization With Stent, Hernia Repair, Orthopedic Surgery Additional Past Surgical History / Comment(s): Left knee surgery, left ankle surgery, pt thinks 1 or 2 stents not sure in what vessel. pain clinic Past Anesthesia/Blood Transfusion Reactions: No Reported Reaction Date of Last Stent Placement:: 2011 Past Psychological History: No Psychological Hx Reported Smoking Status: Former smoker Past Alcohol Use History: None Reported Past Drug Use History: None Reported - Past Family History Father Family Medical History: Cancer Mother Family Medical History: Cancer General Exam Limitations: no limitations General appearance: alert, in no apparent distress Head exam: Present: atraumatic, normocephalic, normal inspection Eye exam: Present: normal appearance, PERRL, EOMI. Absent: scleral icterus, conjunctival injection, periorbital swelling ENT exam: Present: normal exam, mucous membranes moist Neck exam: Present: normal inspection. Absent: tenderness, meningismus, lymphadenopathy Respiratory exam: Present: normal lung sounds bilaterally. Absent: respiratory distress, wheezes, rales, rhonchi, stridor Cardiovascular Exam: Present: regular rate, normal rhythm, normal heart sounds. Absent: systolic murmur, diastolic murmur, rubs, gallop, clicks GI/Abdominal exam: Present: soft, normal bowel sounds. Absent: distended, tenderness, guarding, rebound, rigid Extremities exam: Present: normal inspection, full ROM, normal capillary refill. Absent: tenderness, pedal edema, joint swelling, calf tenderness Back exam: Present: normal inspection Neurological exam: Present: alert, oriented X3, CN II-XII intact Psychiatric exam: Present: normal affect, normal mood Skin exam: Present: warm, dry, intact, normal color. Absent: rash Course Vital Signs 04/25/25 04/25/25 00:34 01:25 Temperature 98.6 F Pulse Rate 72 60 Respiratory 18 20 Rate Blood Pressure 149/81 147/92 O2 Sat by Pulse 94 L 96 Oximetry - Reevaluation(s) Reevaluation #1: 04/25/25 01:57 Medical records reviewed Reevaluation #2: 04/25/25 04:38 Patient symptoms unchanged, still short of breath still with chest pain Reevaluation #3: 04/25/25 04:39 Patient informed of results questions answered answered family does not feel comfortable taking patient home Reevaluation #4: Was pt. sent in by a medical professional or institution (, PA, CONTINUOUS MINER OPERATOR HELPER, urgent care, hospital, or snf...) When possible be specific @ -no Did you speak to anyone other than the patient for history (EMS, parent, family, police, friend...)? What history was obtained from this source @ -no Did you review nursing and triage notes (agree or disagree)? Why? @ -agree Are old charts reviewed (outside hosp., previous admission, EMS record, old EKG, old radiological studies, urgent care reports/EKG's, snf records)? Report findings @ -yes Differential Diagnosis (chest pain, altered mental status, abdominal pain women, abdominal pain men, vaginal bleeding, weakness, fever, dyspnea, syncope, headache, dizziness, GI bleed, back pain, seizure, CVA, palpatations, mental health, musculoskeletal)? @ -prior EKG interpreted by me (3pts min.). @ -yes X-rays interpreted by me (1pt min.). @ -yes negative for acute disease CT interpreted by me (1pt min.). @ -no U/S interpreted by me (1pt. min.). @ -no What testing was considered but not performed or refused? (CT, X-rays, U/S, labs)? Why? @ -none What meds were considered but not given or refused? Why? @ -none Did you discuss the management of the patient with other professionals (professionals i.e. , PA, CONTINUOUS MINER OPERATOR HELPER, lab, RT, psych nurse, social and political studies professor, civil lawyer, teacher, correctional officer chief, nurse outreach case manager)? Give summary @ -no Was smoking cessation discussed for >3mins.? @ -no Was critical care preformed (if so, how long)? @ -no Were there social determinants of health that impacted care today? How? (Homelessness, low income, unemployed, alcoholism, drug addiction, transportation, low edu. Level, literacy, decrease access to med. care, longterm, rehab)? @ -none Was there de-escalation of care discussed even if they declined (Discuss DNR or withdrawal of care, Hospice)? DNR status @ -no What co-morbidities impacted this encounter? (DM, HTN, Smoking, COPD, CAD, Cancer, CVA, ARF, Chemo, Hep., AIDS, mental health diagnosis, sleep apnea, morbid obesity)? @ -none Was patient admitted / discharged? Hospital course, mention meds given and route, prescriptions, significant lab abnormalities, going to OR and other pertinent info. @ - Undiagnosed new problem with uncertain prognosis? @ -no Drug Therapy requiring intensive monitoring for toxicity (Heparin, Nitro, Insulin, Cardizem)? @ -no Were any procedures done? @ -no Diagnosis/symptom? @ - Acute, or Chronic, or Acute on Chronic? @ -Acute Uncomplicated (without systemic symptoms) or Complicated (systemic symptoms)? @ -Complicated Side effects of treatment? @ -no Exacerbation, Progression, or Severe Exacerbation? @ -exacerbation Poses a threat to life or bodily function? How? (Chest pain, [place], [place], pneumonia, PE, COPD, DKA, ARF, appy, cholecystitis, CVA, Diverticulitis, Homicidal, Suicidal, threat to staff... and all critical care pts) @ -yes Reevaluation #5: Differential Chest Pain: Stable Angina, Unstable Angina, STEMI, NSTEMI Aortic Dissection, Pneumothorax, Musculoskeletal, Esophageal Spasm GERD, Cholecystitis, Pancreatitis, Zoster, this is not meant to be an all-inclusive list. - Consultations Consultation #1: Spoke with nikki who agrees to admit this patient Chest Pain MDM - MDM 89 male to the ER for evaluation of CHF with left-sided chest pain. Severe shortness of breath weakness left-sided chest pain needing PT OT Disposition Clinical Impression: CHF (congestive heart failure), Abdominal pain, Chest pain, Left flank pain, Left rib fracture Disposition: ADMITTED IP TO THIS HOSP Condition: Fair Is patient prescribed a controlled substance at d/c from ED?: No Time of Disposition: 04:30
[2025-04-25] MEDS: SODIUM CHLORIDE 0.9% 1,000 ML IV SCH ×2 (01:31→06:53)
[2025-04-25] MEDS: HYDROmorphone 1 MG/ML 1 ML SYRINGE IVP STA (01:32)
[2025-04-25] MEDS: KETOROLAC 15 MG/ML 1 ML VIAL IVP STA (01:34)
[2025-04-25 02:07] LABS: Basophils # (A) 0.03 10*3/uL (0.00-0.10); Basophils % (A) 0.4 %; Eosinophils # (A) 0.17 10*3/uL (0.04-0.35); Eosinophils % (A) 2.2 %; HCT 46.2 % (39.6-50.0); HGB 15.2 g/dL (13.0-17.0); Lymphocytes # (A) 1.72 10*3/uL (0.90-5.00); Lymphocytes % (A) 22.6 %; MCH 29.6 pg (27.0-32.0); MCHC 32.9 g/dL (32.0-37.0); MCV 90.1 fL (80.0-97.0); Mean Platelet Volume 10.8 fL (9.5-12.2); Monocytes # (A) 0.63 10*3/uL (0.20-1.00); Monocytes % (A) 8.3 %; Neutrophils # (A) 5.03 10*3/uL (1.80-7.70); Neutrophils % (A) 66.2 %; Platelet Count 186 10*3/uL (140-440); RBC 5.13 10*6/uL (4.40-5.60); RDW 14.1 % (11.5-14.5)
[2025-04-25 02:34] LABS: ALT 16 U/L (4-49); AST 27 U/L (17-59); African American GFR (CKD) 86 (>60 ml/min/1.73 sqM); Alkaline Phosphatase 82 U/L (38-126); Anion Gap 6 mmol/L; Blood Urea Nitrogen 24 mg/dL (9-20); Calcium 9.9 mg/dL (8.4-10.2); Carbon Dioxide 31 mmol/L (22-30); Chloride 101 mmol/L (98-107); Glucose 95 mg/dL (74-99); Magnesium 2.1 mg/dL (1.6-2.3); Non-African American GFR(CKD) 74 (>60 ml/min/1.73 sqM); Phosphorus 4.1 mg/dL (2.5-4.5); Potassium 4.2 mmol/L (3.5-5.1); Prothrombin Time 11.3 sec (10.0-12.5); Sodium 138 mmol/L (137-145); Total Bilirubin 0.7 mg/dL (0.2-1.3)
[2025-04-25 02:42] LABS: NT-Pro-B-Type Natriuretic Pept 4190 pg/mL
--- NOTE | 2025-04-25 03:45 | XR ---
EXAM: XR Chest, 2 Views CLINICAL HISTORY: ITS.REASON XR Reason: cp TECHNIQUE: Frontal and lateral views of the chest. COMPARISON: No relevant prior studies available. IMPRESSION: Cardiomegaly. Mild vascular congestion.
[2025-04-25] MEDS ORDERED: FUROSEMIDE 10 MG/ML 2 ML VIAL IV SCH (06:00)
--- NOTE | 2025-04-25 06:10 | P.HPIM ---
History of Present Illness H&P Date: 04/25/25 Chief Complaint: Chest pain Patient is a 89 year old male with atrial fibrillation, hyperlipidemia, hypertension, CAD s/p prior stenting to proximal LAD presented to the ED with chest pain. Patient initially presented to the ED 2 days ago for a fall that occurred on 04/22/2025, he was in bed when he went to stand up putting his hands on a swivel chair that was unstable causing him to fall on the left side hitting his chest to the ground. A CT scan was done that showed left right lateral 8th and 9th posterior lateral 10th rib fracture. He was then discharged home. Today he reports severe left-sided rib pain secondary to recent fall and rib fracture. He states that his pain is uncontrollable at home. He also has pain with deep breaths when he touches his left rib cage. The pain was mostly on the left side of his chest and did not radiate. No provoking/relieving factors and he states that this pain did not feel similar to the chest pain he experienced when he had the stent placed in the past. At the time of this interview his chest pain has resolved. Patient was also recently admitted to the hospital for CHF exacerbation and was discharged on 03/05/25. Moreover, patient was also seen here in the ED for UTI on 03/28/25 and was prescribed Bactrim and Keflex and was discharged home. Patient denies any UTI symptoms now. He lives at home with his and his daughter helps them out with daily activities, he uses a walker to ambulate. Denies fever, chills, shortness of breath, cough, palpitations, abdominal pain, nausea, vomiting, hematuria, dysuria, hematochezia, melena, headache, slurred speech, numbness, tingling, dizziness, lightheadedness, blurred vision, double vision. ED documentation reviewed. In the ED patient was treated with Dilaudid, ketorolac, 0.9 normal saline. Vitals on admission T 98.6 F, MA 72 bpm, RR 18, BP 149/81, SpO2 94% on room air Most recent vital ER 60 bpm, RR 20, BP 147/92, SpO2 96% on 2 L oxygen via nasal cannula EKG independently interpreted as ventricular paced rhythm, LBBB, rate 61 bpm, QTc 485 ms, QRS 201 ms Chest x-ray shows cardiomegaly, mild vascular congestion Labs on admission show WBC 7.6, hemoglobin 15.2, platelet 186, INR 1.0, sodium 138, potassium 4.2, bicarb 31, BUN 24, creatinine 0.92, magnesium 2.1, NT proBNP 4190, troponin I <0.012 Review of systems: Pertinent positives and negatives as discussed in HPI, a complete review of systems was performed and all other systems are negative. Physical examination: Vital signs reviewed General: nontoxic, no distress, appears at stated age Derm: warm, dry, intact Head: atraumatic, normocephalic, symmetric Eyes: EOMI, anicteric sclera Mouth: no lip lesion, mucus membranes moist Cardiovascular: S1 S2 reg, no murmur Lungs: CTA bilateral, no rhonchi, no rales, no accessory muscle use Abdominal: soft, non-tender to palpation Extremities: 1+ pitting edema b/l LE, No cyanosis, clubbing Neuro: Alert, Oriented, Gross neurological examination did not reveal any focal deficits. Psych: well appearing, appropriate affect Assessment/Plan: Patient is a 89 year old male with atrial fibrillation, hyperlipidemia, hypertension, CAD s/p prior stenting sent to the ED with chest pain. Patient admitted to internal medicine service. Active: #. Chest pain #. H/o CAD status post stenting to proximal LAD troponin I <0.012 EKG independently interpreted as ventricular paced rhythm, LBBB, rate 61 bpm, QTc 485 ms, QRS 201 ms Lexiscan Cardiolite stress test performed in the office in 03/2020 revealed inconclusive EKG due to baseline abnormalities. Normal myocardial perfusion and function Continue nitroglycerin ointment topical every 6 hours Resume home cardiac meds once verified by pharmacy Obtain lipid panel, TSH, A1c Continue to trend troponin Continue telemetry monitoring Cardiology consulted #. CHF exacerbation, EF 25-30% (02/27) Chest x-ray shows cardiomegaly, mild vascular congestion Echocardiogram 02/11/25 reveals EF of 25 to 30%, mildly increased left ventricular wall thickness, RVSP 33, moderate mitral regurgitation, mild tricuspid regurgitation, aortic root dilation. NT proBNP 4190 Continue Lasix 20 mg IV every 12 hours Monitor Is and Os Monitor BMP Resume home cardiac meds once verified by pharmacy Cardiology consulted #. Rib fracture Chest CT done on shows left lateral 8th and 9th posterior lateral 10th rib fracture, no pneumothorax or hemothorax evident, cardiomegaly Pain management Encouraged to use Incentive spirometer Orthopedic surgery consulted PT, OT, social work consulted for placement Chronic: #. Atrial fibrillation #. Sick sinus syndrome status post permanent pacemaker placement #. Ascending aortic aneurysm, stable #. Descending thoracic aortic aneurysm #. Pulmonary nodules #. Hypertension #. Hyperlipidemia #. BPH #. Neuropathy Resume home meds once verified by pharmacy F: None E: Replete as required N: Heart healthy diet A: Bedrest DVT prophylaxis: Eliquis 5 mg p.o. twice daily The patient is admitted with an anticipated less than 2 midnight stay for evaluation of chest pain CODE STATUS: FULL CODE Discussed with: Patient Anticipated discharge place: Pending clinical course Dictation was produced using [employer] dictation software. please excuse any grammatical, word or spelling errors. Bobby Hansen MD PGY-1 IM Past Medical History Past Medical History: Atrial Fibrillation, Hearing Disorder / Deafness, Hyperlipidemia, Hypertension, Myocardial Infarction ([place]) Additional Past Medical History / Comment(s): elevated b/p 200s/100s, Bilateral hearing aid use,uses a replexa machine for chronic back pain. Pt has CHF and was hospitalized for 3 days 2 weeks ago Last Myocardial Infarction Date:: 2011 History of Any Multi-Drug Resistant Organisms: None Reported Past Surgical History: Heart Catheterization With Stent, Hernia Repair, Orthopedic Surgery Additional Past Surgical History / Comment(s): Left knee surgery, left ankle surgery, pt thinks 1 or 2 stents not sure in what vessel. pain clinic Past Anesthesia/Blood Transfusion Reactions: No Reported Reaction Date of Last Stent Placement:: 2011 Past Psychological History: No Psychological Hx Reported Smoking Status: Former smoker Past Alcohol Use History: None Reported Past Drug Use History: None Reported - Past Family History Father Family Medical History: Cancer Mother Family Medical History: Cancer Medications and Allergies Home Medications Medication Instructions Recorded Confirmed Type Aspirin EC [Ecotrin Low Dose] 81 mg PO DAILY 02/27/17 03/03/25 History Acetaminophen Tab [Tylenol] 500 mg PO BID 10/06/19 03/03/25 History Multivitamins, Thera [Multivitamin 1 tab PO DAILY 07/05/22 03/03/25 History (formulary)] Tamsulosin [Flomax] 0.4 mg PO AC-SUPPER 07/05/22 03/03/25 History Finasteride [Proscar] 5 mg PO DAILY 09/05/22 03/03/25 History Apixaban [Eliquis] 5 mg PO BID 03/14/24 03/03/25 History Zinc Gluconate [Zinc] 50 mg PO DAILY #0 03/14/24 03/03/25 History hydrALAZINE HCL 25 mg PO TID PRN 04/03/24 03/03/25 History Capsaicin 0.025% Cream 1 applic TOPICAL DAILY PRN 12/13/24 03/03/25 History Lidocaine 5% Patch [Lidoderm 5% 1 patch TOPICAL DAILY 12/13/24 03/03/25 History Patch] methocarbamoL [Robaxin] 500 mg PO BID 12/13/24 03/03/25 History Ammonium Lactate Lotion 1 applic TOPICAL BID PRN 03/03/25 03/03/25 History [Lac-Hydrin 12% Lotion] Pregabalin [Lyrica] 100 mg PO BID 03/03/25 03/03/25 History traZODone HCL [Desyrel] 50 mg PO DIRECTED 03/03/25 03/03/25 History Atorvastatin [Lipitor] 40 mg PO HS #90 tab 03/05/25 Rx Empagliflozin [Jardiance] 10 mg PO DAILY #30 tablet 03/05/25 Rx Furosemide [Lasix] 40 mg PO DAILY #90 tab 03/05/25 Rx Cephalexin [Keflex] 500 mg PO Q6HR 7 Days #28 cap 03/29/25 Rx Sulfamethox-Tmp 800-160Mg [Bactrim 1 tab PO Q12HR 7 Days #14 tab 03/29/25 Rx DS 800-160 mg] Allergies Allergy/AdvReac Type Severity Reaction Status Date / Time metoprolol AdvReac bradycardia Verified 04/25/25 00:41 papaverine [From Pavabid] AdvReac liver Verified 04/25/25 00:41 issues, turned yellow tramadol AdvReac Confusion Verified 04/25/25 00:41 Physical Exam Vitals: Vital Signs Temp Pulse Resp BP Pulse Ox 04/25/25 01:25 60 20 147/92 96 04/25/25 00:34 98.6 F 72 18 149/81 94 L Intake and Output 04/24/25 04/24/25 04/25/25 14:59 22:59 06:59 Other: Weight 104.326 kg Results CBC & Chem 7: 04/25/25 01:39 04/25/25 01:39 Labs: Abnormal Lab Results - Last 24 Hours (Table) 04/25/25 Range/Units 01:39 Carbon Dioxide 31 H (22-30) mmol/L BUN 24 H (9-20) mg/dL
[2025-04-25] MEDS: FUROSEMIDE 10 MG/ML 4 ML VIAL IV SCH ×2 (06:54→07:16)
[2025-04-25] MEDS: NITROGLYCERIN OINT 1 INCH/GM PACKET TOPICAL SCH ×2 (06:56→13:23)
[2025-04-25 07:10] LABS: HCT 42.2 % (39.6-50.0); HGB 13.6 g/dL (13.0-17.0); MCH 29.2 pg (27.0-32.0); MCHC 32.2 g/dL (32.0-37.0); MCV 90.8 fL (80.0-97.0); Mean Platelet Volume 11.2 fL (9.5-12.2); Platelet Count 159 10*3/uL (140-440); RBC 4.65 10*6/uL (4.40-5.60); RDW 14.1 % (11.5-14.5); WBC 7.23 10*3/uL (4.50-10.00)
[2025-04-25 07:34] LABS: African American GFR (CKD) 89 (>60 ml/min/1.73 sqM); Anion Gap 10 mmol/L; Blood Urea Nitrogen 24 mg/dL (9-20); Calcium 9.5 mg/dL (8.4-10.2); Carbon Dioxide 26 mmol/L (22-30); Chloride 102 mmol/L (98-107); Glucose 98 mg/dL (74-99); Non-African American GFR(CKD) 77 (>60 ml/min/1.73 sqM); Potassium 4.2 mmol/L (3.5-5.1); Sodium 138 mmol/L (137-145)
[2025-04-25] MEDS: FUROSEMIDE 10 MG/ML 2 ML VIAL IV SCH (08:19)
[2025-04-25] MEDS: ACETAMINOPHEN TAB 325 MG TAB PO PRN (08:29)
[2025-04-25] MEDS: APIXABAN 5 MG TAB PO SCH (08:29)
[2025-04-25] MEDS: ASPIRIN 81 MG PO SCH (08:29)
[2025-04-25 08:39] LABS: T4, Free (Free Thyroxine) 1.38 ng/dL (0.78-2.19)
[2025-04-25] MEDS ORDERED: ENOXAPARIN 40 MG/0.4 ML SYRINGE SQ SCH (09:00)
[2025-04-25] MEDS: carvediloL 3.125 MG TAB PO SCH (11:30)
--- NOTE | 2025-04-25 12:50 | P.CRDCN ---
History of Present Illness Consult date: 04/25/25 History of present illness: HISTORY OF PRESENTING ILLNESS: 89-year-old with history of atrial fibrillation hypertension dyslipidemia prior history of coronary artery status post PCI to LAD presented to the ER because of generalized weakness and a fall at home. He also has history PPM, ascending aortic aneurysm 4.1 cm, lower extremity edema, orthostatic hypotension. Patient initially presented to the ER 2 days ago after having a fall on 04/22/2025. He was trying to get up from a bed but caught his leg in a chair and lost his balance and fell on the ground. He denied losing consciousness. This time he presented to the hospital because of left-sided chest pain which is somewhat reproducible, gets worse with taking deep breath and is nonradiating. He was recently hospitalized for CHF exacerbation and was discharged on 03/05/2025. He was then admitted on 03/28/2025 for possible UTI and was given Bactrim and Keflex. 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 His troponins are not elevated, NT-proBNP is 4190, creatinine 0.9 Chest x-ray shows mild vascular congestion EKG shows ventricularly paced rhythm with a heart rate of 61 bpm, REVIEW OF SYSTEMS: 14 point review of system is negative except what is mentioned above in HPI. PHYSICAL EXAMINATION: Neck: Brisk carotid upstroke, no jugular venous distention. Lungs: Mild crackles audible Heart: Irregular pulse, mild systolic murmur audible. Abdomen: Soft nontender, positive bowel sounds. Extremities: 1+ pitting edema Neuro: Alert, oritented, no focal deficits. Detailed neuro exam was not per formed. ASSESSMENT: # Noncardiac left-sided chest pain, likely from mechanical fall. Rule out of ACS # Mild HFrEF exacerbation. EF 25 to 30% from 02/2025. Does not appear in acute exacerbation at this time # History of CAD status post PCI to proximal LAD. Stable CAD # Rib fracture on left side # Chronic atrial fibrillation # Sick sinus syndrome status post PPM # Ascending aortic aneurysm stable # Descending thoracic aortic aneurysm # Pulmonary nodule # Hypertension dyslipidemia, # Prior h/o of orthostatic hypotension PLAN: Continue aspirin, Eliquis 5 twice daily Start Coreg 3.125 mg twice daily, Discontinue Lasix. Start Bumex 1 mg p.o. daily, Aldactone 12.5 g daily, Farxiga 10 mg daily Start losartan 12.5 mg daily Repeat orthostatic vital signs tomorrow Akash Becerril MD, FACC, RPVI Thank you for allowing [facility] to participate in this patient's care. Feel free to reach out in case of any followup questions. Past Medical History Past Medical History: Atrial Fibrillation, Hearing Disorder / Deafness, Hyperlipidemia, Hypertension, Myocardial Infarction ([place]) Additional Past Medical History / Comment(s): elevated b/p 200s/100s, Bilateral hearing aid use,uses a replexa machine for chronic back pain. Pt has CHF and was hospitalized for 3 days 2 weeks ago Last Myocardial Infarction Date:: 2011 History of Any Multi-Drug Resistant Organisms: None Reported Past Surgical History: Heart Catheterization With Stent, Hernia Repair, Orthopedic Surgery Additional Past Surgical History / Comment(s): Left knee surgery, left ankle surgery, pt thinks 1 or 2 stents not sure in what vessel. pain clinic Past Anesthesia/Blood Transfusion Reactions: No Reported Reaction Date of Last Stent Placement:: 2011 Past Psychological History: No Psychological Hx Reported Smoking Status: Former smoker Past Alcohol Use History: None Reported Past Drug Use History: None Reported - Past Family History Father Family Medical History: Cancer Mother Family Medical History: Cancer Medications and Allergies Home Medications Medication Instructions Recorded Confirmed Type Aspirin EC [Ecotrin Low Dose] 81 mg PO DAILY 02/27/17 04/25/25 History Acetaminophen Tab [Tylenol] 500 mg PO BID 10/06/19 04/25/25 History Multivitamins, Thera [Multivitamin 1 tab PO DAILY 07/05/22 04/25/25 History (formulary)] Tamsulosin [Flomax] 0.4 mg PO AC-SUPPER 07/05/22 04/25/25 History Finasteride [Proscar] 5 mg PO DAILY 09/05/22 04/25/25 History Apixaban [Eliquis] 5 mg PO BID 03/14/24 04/25/25 History hydrALAZINE HCL 25 mg PO TID PRN 04/03/24 04/25/25 History Capsaicin 0.025% Cream 1 applic TOPICAL DAILY PRN 12/13/24 04/25/25 History Lidocaine 5% Patch [Lidoderm 5% 1 patch TRANSDERM DAILY 12/13/24 04/25/25 Histo ry Patch] methocarbamoL [Robaxin] 500 mg PO BID PRN 12/13/24 04/25/25 History Ammonium Lactate Lotion 1 applic TOPICAL BID PRN 03/03/25 04/25/25 History [Lac-Hydrin 12% Lotion] Pregabalin [Lyrica] 100 mg PO BID 03/03/25 04/25/25 History Atorvastatin [Lipitor] 40 mg PO HS #90 tab 03/05/25 04/25/25 Rx Empagliflozin [Jardiance] 10 mg PO DAILY #30 tablet 03/05/25 04/25/25 Rx Furosemide [Lasix] 40 mg PO DAILY #90 tab 03/05/25 04/25/25 Rx Vitamin B-12(Unknown Dose) 1 tab PO DAILY 04/25/25 04/25/25 History Allergies Allergy/AdvReac Type Severity Reaction Status Date / Time metoprolol AdvReac bradycardia Verified 04/25/25 11:53 papaverine [From Pavabid] AdvReac liver Verified 04/25/25 11:53 issues, turned yellow tramadol AdvReac Confusion Verified 04/25/25 11:53 Physical Exam Vitals: Vital Signs Temp Pulse Resp BP Pulse Ox 04/25/25 11:27 60 20 123/80 96 04/25/25 08:13 98.0 F 61 20 141/87 95 04/25/25 06:59 59 L 18 140/87 98 04/25/25 01:25 60 20 147/92 96 04/25/25 00:34 98.6 F 72 18 149/81 94 L Intake and Output 04/24/25 04/25/25 04/25/25 22:59 06:59 14:59 Other: Voiding Method Bedside Commode Urinal Weight 104.326 kg Results 04/25/25 06:09 04/25/25 06:09 Cardiac Enzymes 04/25/25 04/25/25 04/25/25 Range/Units 01:39 01:39 06:09 AST 27 (17-59) U/L Troponin I <0.012 <0.012 (0.000-0.034) ng/mL 04/25/25 Range/Units 08:42 AST (17-59) U/L Troponin I <0.012 (0.000-0.034) ng/mL Coagulation 04/25/25 Range/Units 01:39 PT 11.3 (10.0-12.5) sec APTT 25.0 (22.0-30.0) sec CBC 04/25/25 04/25/25 Range/Units 01:39 06:09 WBC 7.60 7.23 (4.50-10.00) 10*3/uL RBC 5.13 4.65 (4.40-5.60) 10*6/uL Hgb 15.2 13.6 (13.0-17.0) g/dL Hct 46.2 42.2 (39.6-50.0) % Plt Count 186 159 (140-440) 10*3/uL Comprehensive Metabolic Panel 04/25/25 04/25/25 Range/Units 01:39 06:09 Sodium 138 138 (137-145) mmol/L Potassium 4.2 4.2 (3.5-5.1) mmol/L Chloride 101 102 (98-107) mmol/L Carbon Dioxide 31 H 26 (22-30) mmol/L BUN 24 H 24 H (9-20) mg/dL Creatinine 0.92 0.89 (0.66-1.25) mg/dL Glucose 95 98 (74-99) mg/dL Calcium 9.9 9.5 (8.4-10.2) mg/dL AST 27 (17-59) U/L ALT 16 (4-49) U/L Alkaline Phosphatase 82 (38-126) U/L Total Protein 7.0 (6.3-8.2) g/dL Albumin 4.0 (3.5-5.0) g/dL Current Medications Generic Name Dose Route Start Last Admin Trade Name Freq PRN Reason Stop Dose Admin Acetaminophen 650 mg 04/25/25 05:53 04/25/25 08:29 Acetaminophen Tab 325 Mg Tab PO 650 mg Q6HR PRN Administration Fever and/ or Pain Apixaban 5 mg 04/25/25 09:00 04/25/25 08:29 Apixaban 5 Mg Tab PO 5 mg BID JANNETH Administration Protocol Aspirin 81 mg 04/25/25 09:00 04/25/25 08:29 Aspirin 81 Mg PO 81 mg DAILY JANNETH Administration Carvedilol 3.125 mg 04/25/25 09:45 04/25/25 11:30 Carvedilol 3.125 Mg Tab PO 3.125 mg BID-W/MEALS JANNETH Administration Furosemide 20 mg 04/25/25 07:00 04/25/25 08:19 Furosemide 10 Mg/Ml 2 Ml Vial IV 20 mg Q12H JANNETH Administration Nitroglycerin 1 inch 04/25/25 13:00 Nitroglycerin Oint 1 Inch/Gm Packet TOPICAL Q6H JANNETH Intake and Output 04/24/25 04/25/25 04/25/25 22:59 06:59 14:59 Other: Voiding Method Bedside Commode Urinal Weight 104.326 kg 04/25/25 06:09 04/25/25 06:09
--- NOTE | 2025-04-25 12:51 | P.CON ---
Consult Note - . Consult date: 04/25/25 Assessment/Plan:: Patient is a 89 year old male with history of atrial fibrillation and CAD s/p prior stenting to proximal LAD presented to the [facility] ER with chest pain. Patient initially presented to the [facility] ER two days ago for a fall that occurred on 04/05. He was in bed when he went to stand up falling to the ground. A CT scan was done that showed left right lateral 8th and 9th posterior lateral 10th rib fracture. He was then discharged home. Today he reports severe left-sided rib pain secondary to recent fall and rib fracture. He states that his pain is uncontrollable at home. He also has pain with deep breaths when he touches his left rib cage. The pain was mostly on the left side of his chest and did not radiate. No provoking/relieving factors. Review of Systems ROS Statement: Those systems with pertinent positive or pertinent negative responses have been documented in the HPI. Past Medical History Past Medical History: Atrial Fibrillation, Hearing Disorder / Deafness, Hyperlipidemia, Hypertension, Myocardial Infarction ([place]) Additional Past Medical History / Comment(s): elevated b/p 200s/100s, Bilateral hearing aid use,uses a replexa machine for chronic back pain. Pt has CHF and was hospitalized for 3 days 2 weeks ago Last Myocardial Infarction Date:: 2011 History of Any Multi-Drug Resistant Organisms: None Reported Past Surgical History: Heart Catheterization With Stent, Hernia Repair, Orthopedic Surgery Additional Past Surgical History / Comment(s): Left knee surgery, left ankle surgery, pt thinks 1 or 2 stents not sure in what vessel. pain clinic Past Anesthesia/Blood Transfusion Reactions: No Reported Reaction Date of Last Stent Placement:: 2011 Past Psychological History: No Psychological Hx Reported Smoking Status: Former smoker Past Alcohol Use History: None Reported Past Drug Use History: None Reported - Past Family History Father Family Medical History: Cancer Mother Family Medical History: Cancer General Exam Limitations: no limitations General appearance: alert, in no apparent distress Head exam: Present: atraumatic, normocephalic, normal inspection Eye exam: Present: normal appearance, PERRL, EOMI. Absent: scleral icterus, conjunctival injection, periorbital swelling ENT exam: Present: normal exam, mucous membranes moist Neck exam: Present: normal inspection. Absent: tenderness, meningismus, lymphadenopathy Respiratory exam: Present: normal lung sounds bilaterally. Absent: respiratory distress, wheezes, rales, rhonchi, stridor Cardiovascular Exam: Present: regular rate, normal rhythm, normal heart sounds. Absent: systolic murmur, diastolic murmur, rubs, gallop, clicks GI/Abdominal exam: Present: soft, normal bowel sounds. Absent: distended, tenderness, guarding, rebound, rigid Extremities exam: Present: normal inspection, full ROM, normal capillary refill. Absent: tenderness, pedal edema, joint swelling, calf tenderness Back exam: Present: normal inspection Neurological exam: Present: alert, oriented X3, CN II-XII intact Psychiatric exam: Present: normal affect, normal mood Skin exam: Present: warm, dry, intact, normal color. Absent: rash 89 year old male with MSK Thoracic Pain associated with recent fall and rib fracture. Pain is not controlled at home -No acute surgical intervention -Recommend consult to Pain Management -Pain Control -Recommend consult to PT/OT and possible rehab placement -Ok for Regular Diet from General Surgery standpoint rTa Delacruz DO [facility] [phone]
[2025-04-25] MEDS: LOSARTAN 25 MG TAB PO SCH (13:22)
[2025-04-25] MEDS: SPIRONOLACTONE 25 MG TAB PO SCH (13:22)
[2025-04-25] MEDS: BUMETANIDE 1 MG TAB PO SCH (13:22)
[2025-04-25] MEDS ORDERED: AMMONIUM LACTATE 12% LOTION 225 GM BTL TOPICAL PRN (15:06)
[2025-04-25] MEDS: FINASTERIDE 5 MG TAB PO SCH (17:03)
[2025-04-25] MEDS: TAMSULOSIN 0.4 MG CAP.ER.24H PO SCH (17:03)
[2025-04-25] MEDS: PREGABALIN 100 MG CAP PO SCH (20:28)
[2025-04-25] MEDS: ATORVASTATIN 40 MG TAB PO SCH (20:29)
[2025-04-25] MEDS: methocarbamoL 500 MG TAB PO PRN (22:39)
[2025-04-26 00:34] LABS: Appearance,Urine Clear (Clear); Bilirubin,Urine Negative (Negative); Blood,Urine Large (Negative); Color,Urine Light Yellow; Glucose,Urine (UA) 3+ (Negative); Hyaline Casts,Urine 2 /lpf (0-2); Ketones,Urine Negative (Negative); Leukocyte Esterase,Urine Moderate (Negative); Mucus,Urine Rare /hpf; Nitrite,Urine Negative (Negative); Protein,Urine Negative (Negative); RBC,Urine >182 /hpf (0-5); Specific Gravity,Urine 1.011 (1.001-1.035); Urobilinogen,Urine <2.0 mg/dL (<2.0); WBC,Urine 15 /hpf (0-5)
[2025-04-26] MEDS: DAPAGLIFLOZIN PROPANEDIOL 10 MG TABLET PO SCH (08:38)
[2025-04-26 10:10] LABS: Chol/HDL Ratio 2.71 Ratio; VLDL Calculation 16.98 mg/dL (5.00-40.00)
[2025-04-26] MEDS: LIDOCAINE 4% PATCH TOPICAL SCH (11:33)
[2025-04-26] MEDS: MULTIVITAMINS, THERA 1 EACH TAB PO SCH (11:33)
[2025-04-26 11:48] LABS: African American GFR (CKD) 87 (>60 ml/min/1.73 sqM); Anion Gap 11 mmol/L; Blood Urea Nitrogen 20 mg/dL (9-20); Calcium 9.2 mg/dL (8.4-10.2); Carbon Dioxide 25 mmol/L (22-30); Chloride 101 mmol/L (98-107); Glucose 136 mg/dL (74-99); Magnesium 1.9 mg/dL (1.6-2.3); Non-African American GFR(CKD) 75 (>60 ml/min/1.73 sqM); Potassium 4.4 mmol/L (3.5-5.1); Sodium 137 mmol/L (137-145)
[2025-04-26] MEDS: polyethylene glycoL 3350 17 GM POWD.PACK PO SCH (12:40)
--- NOTE | 2025-04-26 13:28 | P.PN ---
Progress Note - Text Progress Note Date: 04/26/25 No acute events overnight. Pain is a little better controlled today. General appearance: alert, in no apparent distress Head exam: Present: atraumatic, normocephalic, normal inspection Eye exam: Present: normal appearance, PERRL, EOMI. Absent: scleral icterus, conjunctival injection, periorbital swelling ENT exam: Present: normal exam, mucous membranes moist Neck exam: Present: normal inspection. Absent: tenderness, meningismus, lymphadenopathy Respiratory exam: Present: normal lung sounds bilaterally. Absent: respiratory distress, wheezes, rales, rhonchi, stridor Cardiovascular Exam: Present: regular rate, normal rhythm, normal heart sounds. Absent: systolic murmur, diastolic murmur, rubs, gallop, clicks GI/Abdominal exam: Present: soft, normal bowel sounds. Absent: distended, tenderness, guarding, rebound, rigid Extremities exam: Present: normal inspection, full ROM, normal capillary refill. Absent: tenderness, pedal edema, joint swelling, calf tenderness Back exam: Present: normal inspection Neurological exam: Present: alert, oriented X3, CN II-XII intact Psychiatric exam: Present: normal affect, normal mood Skin exam: Present: warm, dry, intact, normal color. Absent: rash 89 year old male with MSK Thoracic Pain associated with recent fall and rib fracture. Pain is not controlled at home -No acute surgical intervention -Recommend consult to Pain Management -Cardiology Recs -Pain Control -Recommend consult to PT/OT and possible rehab placement -Ok for Regular Diet from General Surgery standpoint Tra Delacruz DO [facility] [phone]
--- NOTE | 2025-04-26 13:33 | P.PN ---
Subjective Progress Note Date: 04/26/25 Subjective: Patient seen and examined at bedside. No acute events overnight. Pertinent positives and negatives as discussed above, a complete review of systems was performed and all other systems are negative. Vitals Signs Reviewed. General: Nontoxic, no distress, appears at stated age Derm: Warm, dry Head: Atraumatic, normocephalic, symmetric Eyes: EOMI, no lid lag, anicteric sclera Mouth: No lip lesion, mucus membranes moist Cardiovascular: S1S2 reg, no murmur Lungs: CTA bilateral, no rhonchi, no rales, no accessory muscle use Abdominal: Soft, nontender to palpation, no guarding, no appreciable organomegaly Ext: No gross muscle atrophy, no edema, no contractures Neuro: CN II-XI grossly intact, no focal neuro deficits Psych: Alert, oriented, appropriate affect Data Reviewed Today: Pertinent Labs: Potassium 4.4, creatinine 0.91, magnesium 1.9, A1c 6.5 Imaging: No new imaging Assessment and Plan: Active: Orthostatic hypotension - Possibly in the setting of diuretic use - Will check morning cortisol - TSH mildly elevated, free T4 normal - Compression stockings ordered Rib fracture - Surgery note reviewed, no interventions recommended - Continue pain control with oral Tylenol as needed, lidocaine patches daily, Robaxin as needed Constipation - MiraLAX 17 g daily Chest pain, ACS ruled out - On aspirin 81 mg daily, atorvastatin 40 mg nightly - Cardiology following - Continue telemetry monitoring Mild CHF exacerbation, systolic - On Bumex 1 mg daily oral - Coreg 3.125 twice daily, Farxiga 10 mg daily, losartan 12.5 daily, Aldactone 12.5 daily - Cardiology following Chronic: BPH A-fib CAD status post stent Sick sinus syndrome status post PPM Ascending aortic aneurysm, stable Descending thoracic aortic aneurysm Pulmonary nodules Hypertension Dyslipidemia Neuropathy DVT ppx: Eliquis Code status: Full code Anticipated discharge place: Pending clinical course Anticipated discharge time: Pending clinical course Patient will likely need subacute rehab, PT OT ordered - Patient status changed to inpatient. Objective - Vital Signs Vital signs: Vital Signs Temp 97.5 F L 04/26/25 06:33 Pulse 66 04/26/25 06:33 Resp 18 04/26/25 06:33 BP 129/73 04/26/25 06:33 Pulse Ox 96 04/26/25 06:33 FiO2 Intake & Output 04/25/25 04/26/25 04/26/25 18:59 06:59 18:59 Intake Total 118 Balance 118 Weight 104.326 kg Intake: Oral 118 Other: Voiding Method Toilet Urinal Urinal - Labs CBC & Chem 7: 04/25/25 06:09 04/26/25 11:00 Labs: Abnormal Lab Results - Last 24 Hours (Table) 04/25/25 04/25/25 04/25/25 Range/Units 00:00 06:09 15:01 Glucose (74-99) mg/dL Hemoglobin A1c 6.5 H (<=6.0) % HDL Cholesterol 34.00 L (40.00-60.00) mg/dL Urine Glucose (UA) 3+ H (Negative) Urine Blood Large H (Negative) Ur Leukocyte Esterase Moderate H (Negative) Urine RBC >182 H (0-5) /hpf Urine WBC 15 H (0-5) /hpf Urine Mucus Rare H (None) /hpf 04/26/25 Range/Units 11:00 Glucose 136 H (74-99) mg/dL Hemoglobin A1c (<=6.0) % HDL Cholesterol (40.00-60.00) mg/dL Urine Glucose (UA) (Negative) Urine Blood (Negative) Ur Leukocyte Esterase (Negative) Urine RBC (0-5) /hpf Urine WBC (0-5) /hpf Urine Mucus (None) /hpf
--- NOTE | 2025-04-26 19:22 | P.PN ---
Subjective Progress Note Date: 04/26/25 HISTORY OF PRESENTING ILLNESS: 89-year-old with history of atrial fibrillation hypertension dyslipidemia prior history of coronary artery status post PCI to LAD presented to the ER because of generalized weakness and a fall at home. He also has history PPM, ascending aortic aneurysm 4.1 cm, lower extremity edema, orthostatic hypotension. Patient initially presented to the ER 2 days ago after having a fall on 04/22/2025. He was trying to get up from a bed but caught his leg in a chair and lost his balance and fell on the ground. He denied losing consciousness. This time he presented to the hospital because of left-sided chest pain which is somewhat reproducible, gets worse with taking deep breath and is nonradiating. He was recently hospitalized for CHF exacerbation and was discharged on 03/05. He was then admitted on 03/28/2025 for possible UTI and was given Bactrim and Keflex. 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 His troponins are not elevated, NT-proBNP is 4190, creatinine 0.9 Chest x-ray shows mild vascular congestion EKG shows ventricularly paced rhythm with a heart rate of 61 bpm, Progress note 04/26/2025 Seen and examined at bedside this a.m. Chest pain is reproducible and is most likely from his left-sided chest and back trauma. No substernal chest pressure. Hemodynamically stable. Tolerating GDMT. BP 129/73, orthostatic vital signs were nonrevealing Creatinine today 0.9 PHYSICAL EXAMINATION: Neck: Brisk carotid upstroke, no jugular venous distention. Lungs: Mild crackles audible Heart: Irregular pulse, mild systolic murmur audible. Abdomen: Soft nontender, positive bowel sounds. Extremities: 1+ pitting edema Neuro: Alert, oritented, no focal deficits. Detailed neuro exam was not performed. ASSESSMENT: # Noncardiac left-sided chest pain, likely from mechanical fall. Rule out of ACS # Mild HFrEF exacerbation. EF 25 to 30% from 02/2025. Does not appear in acute exacerbation at this time # History of CAD status post PCI to proximal LAD. Stable CAD # Rib fracture on left side # Chronic atrial fibrillation # Sick sinus syndrome status post PPM # Ascending aortic aneurysm stable # Descending thoracic aortic aneurysm # Pulmonary nodule # Hypertension dyslipidemia, # Prior h/o of orthostatic hypotension PLAN: Continue aspirin, Eliquis 5 twice daily Start Coreg 3.125 mg twice daily, Discontinue Lasix. Start Bumex 1 mg p.o. daily, Aldactone 12.5 mg daily, Farxiga 10 mg daily Start losartan 12.5 mg daily At this time patient is cleared from cardiovascular standpoint Recommend outpatient follow-up with primary cpr instructor. Recommend repeat BMP in NT-proBNP next 1 week after discharge Objective - Vital Signs Vital signs: Vital Signs Temp 97.4 F L 04/26/25 14:33 Pulse 64 04/26/25 16:10 Resp 18 04/26/25 14:33 BP 110/66 04/26/25 16:10 Pulse Ox 95 04/26/25 14:33 FiO2 Intake & Output 04/26/25 04/26/25 04/27/25 06:59 18:59 06:59 Intake Total 118 Balance 118 Intake: Oral 118 Other: Voiding Method Urinal - Labs CBC & Chem 7: 04/25/25 06:09 04/26/25 11:00 Labs: Abnormal Lab Results - Last 24 Hours (Table) 04/25/25 04/25/25 04/25/25 Range/Units 00:00 06:09 15:01 Glucose (74-99) mg/dL Hemoglobin A1c 6.5 H (<=6.0) % HDL Cholesterol 34.00 L (40.00-60.00) mg/dL Urine Glucose (UA) 3+ H (Negative) Urine Blood Large H (Negative) Ur Leukocyte Esterase Moderate H (Negative) Urine RBC >182 H (0-5) /hpf Urine WBC 15 H (0-5) /hpf Urine Mucus Rare H (None) /hpf 04/26/25 Range/Units 11:00 Glucose 136 H (74-99) mg/dL Hemoglobin A1c (<=6.0) % HDL Cholesterol (40.00-60.00) mg/dL Urine Glucose (UA) (Negative) Urine Blood (Negative) Ur Leukocyte Esterase (Negative) Urine RBC (0-5) /hpf Urine WBC (0-5) /hpf Urine Mucus (None) /hpf
[2025-04-26] MEDS: MELATONIN 5 MG TABLET PO PRN (21:30)
--- NOTE | 2025-04-27 10:45 | P.PN ---
Progress Note - Text HISTORY OF PRESENTING ILLNESS: 89-year-old with history of atrial fibrillation hypertension dyslipidemia prior history of coronary artery status post PCI to LAD presented to the ER because of generalized weakness and a fall at home. He also has history PPM, ascending aortic aneurysm 4.1 cm, lower extremity edema, orthostatic hypotension. Patient initially presented to the ER 2 days ago after having a fall on 04/22/2025. He was trying to get up from a bed but caught his leg in a chair and lost his balance and fell on the ground. He denied losing consciousness. This time he presented to the hospital because of left-sided chest pain which is somewhat reproducible, gets worse with taking deep breath and is nonradiating. He was recently hospitalized for CHF exacerbation and was discharged on 03/05/2025. He was then admitted on 03/28/2025 for possible UTI and was given Bactrim and Keflex. 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 His troponins are not elevated, NT-proBNP is 4190, creatinine 0.9 Chest x-ray shows mild vascular congestion EKG shows ventricularly paced rhythm with a heart rate of 61 bpm, Progress note 04/26/2025 Seen and examined at bedside this a.m. Chest pain is reproducible and is most likely from his left-sided chest and back trauma. No substernal chest pressure. Hemodynamically stable. Tolerating GDMT. BP 129/73, orthostatic vital signs were nonrevealing Creatinine today 0.9 04/27/2025 Pt seen and examined sitting up in the chair in no acute distress. Blood pressure 152/80 heart rate 70 afebrile maintaining oxygen saturation on room air. Currently awaiting physical therapy evaluation for inpatient rehab placement. PHYSICAL EXAMINATION: Neck: Brisk carotid upstroke, no jugular venous distention. Lungs: CTA b/l. Heart: Irregular pulse, mild systolic murmur audible. Abdomen: Soft nontender, positive bowel sounds. Extremities: 1+ pitting edema Neuro: Alert, oritented, no focal deficits. Detailed neuro exam was not performed. ASSESSMENT: # Noncardiac left-sided chest pain, likely from mechanical fall. Rule out of ACS # Mild HFrEF exacerbation. EF 25 to 30% from 02/2025. Does not appear in acute exacerbation at this time # History of CAD status post PCI to proximal LAD. Stable CAD # Rib fracture on left side # Chronic atrial fibrillation # Sick sinus syndrome status post PPM # Ascending aortic aneurysm stable # Descending thoracic aortic aneurysm # Pulmonary nodule # Hypertension dyslipidemia, # Prior h/o of orthostatic hypotension PLAN: Stable from a cardiac perspective. May be discharged to rehab when medically stable. Follow up with Dr. Decker in 2 weeks. Repeat BMP and NT-proBNP next 1 week after discharge. Nurse Practitioner note has been reviewed, I agree with a documented findings and plan of care. Patient was seen and examined.
--- NOTE | 2025-04-27 15:08 | P.PN ---
Subjective Progress Note Date: 04/27/25 SURGICAL PROGRESS NOTE CHIEF COMPLAINT: Fall with rib fracture HISTORY OF PRESENT ILLNESS: Patient lying in bed comfortably. Denies any shortness of breath. Does complain of rib cage pain. Does report pain is controlled with medication. Denies any abdominal pain. Denies any nausea or vomiting. Physical therapy recommending subacute rehab at discharge. Afebrile. PHYSICAL EXAM: VITAL SIGNS: Reviewed. GENERAL: Well-developed in no acute distress. HEENT: No sclera icterus. Extraocular movements grossly intact. Moist buccal mucosa. Head is atraumatic, normocephalic. ABDOMEN: Soft. Nondistended. Nontender. NEUROLOGIC: Alert and oriented. Cranial nerves II through XII grossly intact. ASSESSMENT: 1. Fall with left-sided rib fractures 2. Left lateral 8th and 9th and posterior lateral 10th rib fracture PLAN: - Increase Tylenol to every 4 hours as needed for pain - Continue Robaxin -Continue Lidoderm patch - Increase activity level - Encourage incentive spirometer use Physician Yeast Distiller note has been reviewed by physician. Signing provider agrees with the documented findings, assessment, and plan of care. Attestation Patient seen and examined at bedside. States pain is 5 out of 10. Presented with chief complaint of fall with rib fracture. Recommend continuing analgesia with Tylenol, Robaxin, Lidoderm patch. Increase activity level as tolerated. Encourage incentive spirometer. No plan for surgical intervention. Ada Darby DO Objective - Vital Signs Vital signs: Vital Signs Temp 98.8 F 04/27/25 05:38 Pulse 70 04/27/25 05:38 Resp 20 04/27/25 05:38 BP 152/80 04/27/25 05:38 Pulse Ox 94 L 04/27/25 05:38 FiO2 Intake & Output 04/26/25 04/27/25 04/27/25 18:59 06:59 18:59 Intake Total 118 118 Balance 118 118 Intake: Oral 118 118 Other: Voiding Method Toilet Urinal - Labs CBC & Chem 7: 04/25/25 06:09 04/26/25 11:00
--- NOTE | 2025-04-27 15:14 | P.PN ---
Subjective Progress Note Date: 04/27/25 Subjective: 07/28/2025 patient seen and examined, sitting up in chair. No acute events overnight. Continues with rib pain. No other complaints. Pertinent positives and negatives as discussed above, a complete review of systems was performed and all other systems are negative. PHYSICAL EXAMINATION: VITAL SIGNS: Reviewed GENERAL: Resting comfortably in bed. Obese. CARDIOVASCULAR: S1 and S2 present. No murmurs, rubs, or gallops. PULMONARY: Chest is clear to auscultation, no wheezing, rhonchi, or crackles. ABDOMEN: Soft, nontender, nondistended. No palpable organomegaly. NEUROLOGICAL: Alert and oriented. Gross neurological examination with no apparent focal deficits. EXTREMITIES: No pedal edema. SKIN: No apparent rashes. Data Reviewed Today: Pertinent Labs: BMP unremarkable Imaging: No new imaging Assessment and Plan: Orthostatic hypotension - Possibly in the setting of diuretic use - Morning cortisol 11.3 - TSH mildly elevated, free T4 normal - Compression stockings ordered Rib fracture - Surgery note reviewed, no interventions recommended - Continue pain control with oral Tylenol as needed, lidocaine patches daily, Robaxin as needed Constipation - MiraLAX 17 g daily Chest pain, ACS ruled out - On aspirin 81 mg daily, atorvastatin 40 mg nightly - Cardiology following - Continue telemetry monitoring Mild CHF exacerbation, systolic - On Bumex 1 mg daily oral - Coreg 3.125 twice daily, Farxiga 10 mg daily, losartan 12.5 daily, Aldactone 12.5 daily - Cardiology following Chronic: BPH A-fib CAD status post stent Sick sinus syndrome status post PPM Ascending aortic aneurysm, stable Descending thoracic aortic aneurysm Pulmonary nodules Hypertension Dyslipidemia Neuropathy DVT ppx: Eliquis Code status: Full code Anticipated discharge place: Subacute rehab Anticipated discharge time: 1 to 2 days Terry Shelton MD Internal Medicine Resident, PGY1 I have seen and evaluated the patient today. Discussed with the resident and agree with the residents finding and plan as documented in the resident's note. Changes highlighted in blue font. Objective - Vital Signs Vital signs: Vital Signs Temp 98.8 F 04/27/25 05:38 Pulse 70 04/27/25 05:38 Resp 20 04/27/25 05:38 BP 152/80 04/27/25 05:38 Pulse Ox 94 L 04/27/25 05:38 FiO2 Intake & Output 04/26/25 04/27/25 04/27/25 18:59 06:59 18:59 Intake Total 118 Balance 118 Intake: Oral 118 Other: Voiding Method Toilet Urinal - Labs CBC & Chem 7: 04/25/25 06:09 04/26/25 11:00 Labs: Abnormal Lab Results - Last 24 Hours (Table) 04/25/25 04/26/25 Range/Units 06:09 11:00 Glucose 136 H (74-99) mg/dL HDL Cholesterol 34.00 L (40.00-60.00) mg/dL
[2025-04-27] MEDS: ACETAMINOPHEN TAB 325 MG TAB PO PRN (15:20)
[2025-04-27 16:07] VITALS: BMI 32.1
[2025-04-28 08:09] VITALS: RESP 17
--- NOTE | 2025-04-28 13:29 | P.PN ---
Subjective Progress Note Date: 04/28/25 Subjective: 07/28/2025 patient seen and examined, sitting up in chair. No acute events overnight. Continues with rib pain. No other complaints. 07/29/2025 patient seen and examined, sitting up in chair. No acute events overnight. Rib pain improving. PT OT recommends CHRISTINE, discharge pending authori zation. Pertinent positives and negatives as discussed above, a complete review of systems was performed and all other systems are negative. PHYSICAL EXAMINATION: VITAL SIGNS: Reviewed GENERAL: Resting comfortably in bed. Obese. CARDIOVASCULAR: S1 and S2 present. No murmurs, rubs, or gallops. PULMONARY: Chest is clear to auscultation, no wheezing, rhonchi, or crackles. ABDOMEN: Soft, nontender, nondistended. No palpable organomegaly. NEUROLOGICAL: Alert and oriented. Gross neurological examination with no apparent focal deficits. EXTREMITIES: No pedal edema. SKIN: No apparent rashes. Data Reviewed Today: Pertinent Labs: BMP unremarkable Imaging: No new imaging Assessment and Plan: Orthostatic hypotension, improved - Possibly in the setting of diuretic use - Morning cortisol 11.3 - TSH mildly elevated, free T4 normal - Compression stockings ordered Rib fracture - Surgery note reviewed, no interventions recommended - Continue pain control with oral Tylenol as needed, lidocaine patches daily, Robaxin as needed Constipation - MiraLAX 17 g daily Chest pain, ACS ruled out - On aspirin 81 mg daily, atorvastatin 40 mg nightly - Cardiology, will follow-up with cardiology in 2 weeks - Continue telemetry monitoring Mild CHF exacerbation, systolic - On Bumex 1 mg daily oral - Coreg 3.125 twice daily, Farxiga 10 mg daily, losartan 12.5 daily, Aldactone 12.5 daily - Cardiology following Chronic: BPH A-fib CAD status post stent Sick sinus syndrome status post PPM Ascending aortic aneurysm, stable Descending thoracic aortic aneurysm Pulmonary nodules Hypertension Dyslipidemia Neuropathy DVT ppx: Eliquis Code status: Full code Anticipated discharge place: Subacute rehab Anticipated discharge time: 1 to 2 days Terry Shelton MD Internal Medicine Resident, PGY1 I have seen and evaluated the patient today. Discussed with the resident and agree with the residents finding and plan as documented in the resident's note. Changes highlighted in blue font. Objective - Vital Signs Vital signs: Vital Signs Temp 98.6 F 04/28/25 06:54 Pulse 66 04/28/25 09:45 Resp 17 04/28/25 06:54 BP 123/79 04/28/25 09:45 Pulse Ox 96 04/28/25 09:45 FiO2 Intake & Output 04/27/25 04/28/25 04/28/25 18:59 06:59 18:59 Intake Total 236 240 Balance 236 240 Weight 104.326 kg Intake: Oral 236 240 Other: Voiding Method Toilet Urinal # Voids 3 2 # Bowel Movements 0 - Labs CBC & Chem 7: 04/25/25 06:09 04/26/25 11:00
[2025-04-28 14:19] VITALS: BP 103/65; PULSE 62; TEMP 97.6
--- NOTE | 2025-04-28 15:09 | P.PN ---
Subjective Progress Note Date: 04/28/25 SURGICAL PROGRESS NOTE CHIEF COMPLAINT: Fall with rib fracture HISTORY OF PRESENT ILLNESS: Patient sitting up at bedside chair. He was able to bend over to pull up his socks. He reports his pain is controlled. Denies any shortness of breath. Denies any nausea or vomiting. Afebrile. On room air at 95%. PHYSICAL EXAM: VITAL SIGNS: Reviewed. GENERAL: Well-developed in no acute distress. HEENT: No sclera icterus. Extraocular movements grossly intact. Moist buccal mucosa. Head is atraumatic, normocephalic. ABDOMEN: Soft. Nondistended. Nontender. NEUROLOGIC: Alert and oriented. Cranial nerves II through XII grossly intact. ASSESSMENT: 1. Fall with left-sided rib fractures 2. Left lateral 8th and 9th and posterior lateral 10th rib fracture PLAN: -Continue Tylenol, Robaxin and Lidoderm patch - Increase activity level - Encourage incentive spirometer use - No surgical intervention planned Physician Adventure Therapist note has been reviewed by physician. Signing provider agrees with the documented findings, assessment, and plan of care. Attestation Patient seen and examined at bedside. Appears to be doing much better with chief complaint of fall with rib fracture. Pain has significantly improved. No plan for surgical intervention. Continue analgesia and continue to increase activity as tolerated. Ada Darby, DO Objective - Vital Signs Vital signs: Vital Signs Temp 97.6 F 04/28/25 13:22 Pulse 62 04/28/25 13:22 Resp 17 04/28/25 13:22 BP 103/65 04/28/25 13:22 Pulse Ox 95 04/28/25 13:22 FiO2 Intake & Output 04/27/25 04/28/25 04/28/25 18:59 06:59 18:59 Intake Total 236 360 Balance 236 360 Weight 104.326 kg Intake: Oral 236 360 Other: Voiding Method Toilet Urinal # Voids 3 2 # Bowel Movements 0 - Labs CBC & Chem 7: 04/25/25 06:09 04/26/25 11:00
--- NOTE | 2025-04-28 16:33 | P.DS ---
Providers Date of admission: 04/25/25 04:33 Expected date of discharge: 04/28/25 Attending physician: Nathan Bowie MD Consults: 04/25/25 04:29 Consult Physician Routine Consulting Provider: Ashlyn Watts Consult Reason/Comments: chf Do you want consulting provider notified?: Yes 04/25/25 04:44 Consult Physician Routine Consulting Provider: Tra Delacruz Consult Reason/Comments: ribFx Do you want consulting provider notified?: Yes [facility] care physician[facility] Course: Discharge diagnoses; Orthostatic hypotension Rib fracture Constipation Chest pain, ACS ruled out Mild CHF exacerbation, systolic BPH A-fib CAD status post stent Sick sinus syndrome status post PPM Ascending aortic aneurysm, stable Descending thoracic aortic aneurysm Pulmonary nodules Hypertension Dyslipidemia Neuropathy Hospital course; Patient is a 89 year old male with atrial fibrillation, hyperlipidemia, hypertension, CAD s/p prior stenting to proximal LAD presented to the ED with chest pain. Patient initially presented to the ED 2 days ago for a fall that occurred on 04/22/2025, he was in bed when he went to stand up putting his hands on a swivel chair that was unstable causing him to fall on the left side hitting his chest to the ground. A CT scan was done that showed left right lateral 8th and 9th posterior lateral 10th rib fracture. He was then discharged home. Today he reports severe left-sided rib pain secondary to recent fall and rib fracture. He states that his pain is uncontrollable at home. He also has pain with deep breaths when he touches his left rib cage. The pain was mostly on the left side of his chest and did not radiate. No provoking/relieving factors and he states that this pain did not feel similar to the chest pain he experienced when he had the stent placed in the past. At the time of this interview his chest pain has resolved. Patient was also recently admitted to the hospital for CHF exacerbation and was discharged on 03/05/25. Moreover, patient was also seen here in the ED for UTI on 03/28/25 and was prescribed Bactrim and Keflex and was discharged home. Patient denies any UTI symptoms now. He lives at home with his and his daughter helps them out with daily activities, he uses a walker to ambulate. Denies fever, chills, shortness of breath, cough, palpitations, abdominal pain, nausea, vomiting, hematuria, dysuria, hematochezia, melena, headache, slurred speech, numbness, tingling, dizziness, lightheadedness, blurred vision, double vision. ED documentation reviewed. In the ED patient was treated with Dilaudid, ketorolac, 0.9 normal saline. -Vitals on admission T 98.6 F, ME 72 bpm, RR 18, BP 149/81, SpO2 94% on room air -Most recent vital ER 60 bpm, RR 20, BP 147/92, SpO2 96% on 2 L oxygen via nasal cannula -EKG independently interpreted as ventricular paced rhythm, LBBB, rate 61 bpm, QTc 485 ms, QRS 201 ms -Chest x-ray shows cardiomegaly, mild vascular congestion -Labs on admission show WBC 7.6, hemoglobin 15.2, platelet 186, INR 1.0, sodium 138, potassium 4.2, bicarb 31, BUN 24, creatinine 0.92, magnesium 2.1, NT proBNP 4190, troponin I <0.012 During his hospital course he was seen by surgery for rib fractures and treated conservatively. He was also seen by cardiology for orthostatic hypotension, and was found to have mild CHF exacerbation and started on guideline directed medical therapy. His symptoms improved during his stay. Patient discharged in stable condition to subacute rehab facility. He will begin Bumex 1 mg daily oral, Coreg 3.125 twice daily, Farxiga 10 mg daily, losartan 12.5 daily, Aldactone 12.5 daily. Continue compression stockings during day. Discontinue Lasix and hydralazine. Follow up with Dr. Decker in 2 weeks, follow-up with his PCP, and repeat BMP and NT-proBNP next 1 week after discharge. Patient will likely need Cosyntropin stimulation test as an outpatient. PHYSICAL EXAMINATION: VITAL SIGNS: Reviewed GENERAL: Resting comfortably in bed. Obese. CARDIOVASCULAR: S1 and S2 present. No murmurs, rubs, or gallops. PULMONARY: Chest is clear to auscultation, no wheezing, rhonchi, or crackles. ABDOMEN: Soft, nontender, nondistended. No palpable organomegaly. NEUROLOGICAL: Alert and oriented. Gross neurological examination with no apparent focal deficits. EXTREMITIES: No pedal edema. SKIN: No apparent rashes. Terry Shelton MD Internal Medicine Resident, PGY1 Dictation was produced using dragon dictation software. please excuse any grammatical, word or spelling errors. This complex discharge summary took >30 minutes to complete. Patient discharged on 04/28/25 at 1541. I have seen and evaluated the patient today. Discussed with the resident and agree with the residents finding and plan as documented in the resident's note. Changes highlighted in blue font. Patient Condition at Discharge: Good Plan - Discharge Summary Discharge Rx Participant: No New Discharge Prescriptions: New Spironolactone [Aldactone] 12.5 mg PO DAILY #90 tab Bumetanide [BUMEX] 1 mg PO DAILY #90 tab Losartan [Cozaar] 12.5 mg PO DAILY #90 tab Pregabalin [Lyrica] 100 mg PO BID #30 cap carvediloL [Coreg] 3.125 mg PO BID-W/MEALS #120 tab Continue Aspirin EC [Ecotrin Low Dose] 81 mg PO DAILY Acetaminophen Tab [Tylenol] 500 mg PO BID Apixaban [Eliquis] 5 mg PO BID Capsaicin 0.025% Cream 1 applic TOPICAL DAILY PRN PRN Reason: Pain Ammonium Lactate Lotion [Lac-Hydrin 12% Lotion] 1 applic TOPICAL BID PRN PRN Reason: Dry Skin Pregabalin [Lyrica] 100 mg PO BID Empagliflozin [Jardiance] 10 mg PO DAILY #30 tablet Vitamin B-12(Unknown Dose) 1 tab PO DAILY Multivitamins, Thera [Multivitamin (formulary)] 1 tab PO DAILY Tamsulosin [Flomax] 0.4 mg PO AC-SUPPER Finasteride [Proscar] 5 mg PO DAILY methocarbamoL [Robaxin] 500 mg PO BID PRN PRN Reason: Muscle Spasm Lidocaine 5% Patch [Lidoderm 5% Patch] 1 patch TRANSDERM DAILY Atorvastatin [Lipitor] 40 mg PO HS #90 tab Discontinued Furosemide [Lasix] 40 mg PO DAILY #90 tab hydrALAZINE HCL 25 mg PO TID PRN PRN Reason: BP over 180 Discharge Medication List Aspirin EC [Ecotrin Low Dose] 81 mg PO DAILY 02/27/17 [History] Acetaminophen Tab [Tylenol] 500 mg PO BID 10/06/19 [History] Multivitamins, Thera [Multivitamin (formulary)] 1 tab PO DAILY 07/05/22 [History] Tamsulosin [Flomax] 0.4 mg PO AC-SUPPER 07/05/22 [History] Finasteride [Proscar] 5 mg PO DAILY 09/05/22 [History] Apixaban [Eliquis] 5 mg PO BID 03/14/24 [History] Capsaicin 0.025% Cream 1 applic TOPICAL DAILY PRN 12/13/24 [History] Lidocaine 5% Patch [Lidoderm 5% Patch] 1 patch TRANSDERM DAILY 12/13/24 [History] methocarbamoL [Robaxin] 500 mg PO BID PRN 12/13/24 [History] Ammonium Lactate Lotion [Lac-Hydrin 12% Lotion] 1 applic TOPICAL BID PRN 03/03/25 [History] Pregabalin [Lyrica] 100 mg PO BID 03/03/25 [History] Atorvastatin [Lipitor] 40 mg PO HS #90 tab 03/05/25 [Rx] Empagliflozin [Jardiance] 10 mg PO DAILY #30 tablet 03/05/25 [Rx] Vitamin B-12(Unknown Dose) 1 tab PO DAILY 04/25/25 [History] Bumetanide [BUMEX] 1 mg PO DAILY #90 tab 04/28/25 [Rx] Losartan [Cozaar] 12.5 mg PO DAILY #90 tab 04/28/25 [Rx] Pregabalin [Lyrica] 100 mg PO BID #30 cap 04/28/25 [Rx] Spironolactone [Aldactone] 12.5 mg PO DAILY #90 tab 04/28/25 [Rx] carvediloL [Coreg] 3.125 mg PO BID-W/MEALS #120 tab 04/28/25 [Rx] Follow up Appointment(s)/Referral(s): Ilan Decker DO [STAFF PHYSICIAN] - 2 Weeks Isai Vargas DO [Primary Care Provider] - 1-2 days Ambulatory/Diagnostic Orders: Basic Metabolic Panel [LAB.AMB] Time Frame: 1 Week, Location: None Selected Miscellaneous Lab Order [LAB.AMB] Time Frame: 1 Week, Location: None Selected Activity/Diet/Wound Care/Special Instructions: Follow up with Dr. Decker in 2 weeks, Repeat BMP and NT-proBNP next 1 week after discharge. Patient will likely need Cosyntropin stimulation test as an outpatient. Discharge Disposition: TRANSFER TO SNF/F
== END 2025-04-28 16:51 | DRG 291 ==
LOC: EC 00:33 → 6NMEDSUR 04:32 → OBSVTOIN 04:33 → 6NMEDSUR 06:42
PROVIDERS: ADMIT Student in an Organized Health Care Education/Training Program; ATTEND Student in an Organized Health Care Education/Training Program
DX: I11.0 Hypertensive heart disease with heart failure (principal); I50.23 Acute on chronic systolic (congestive) heart failure; S22.42XA Multiple fractures of ribs, left side, initial encounter for closed fracture; Z79.01 Long term (current) use of anticoagulants; I71.21 Aneurysm of the ascending aorta, without rupture; I08.1 Rheumatic disorders of both mitral and tricuspid valves; I49.5 Sick sinus syndrome; K59.00 Constipation, unspecified; N40.0 Benign prostatic hyperplasia without lower urinary tract symptoms; I71.23 Aneurysm of the descending thoracic aorta, without rupture; I95.1 Orthostatic hypotension; I44.7 Left bundle-branch block, unspecified; I25.2 Old myocardial infarction; I25.10 Atherosclerotic heart disease of native coronary artery without angina pectoris; W01.0XXA Fall on same level from slipping, tripping and stumbling without subsequent striking against object, initial encounter; Y92.009 Unspecified place in unspecified non-institutional (private) residence as the place of occurrence of the external cause; H91.90 Unspecified hearing loss, unspecified ear; E78.5 Hyperlipidemia, unspecified; G62.9 Polyneuropathy, unspecified; Z79.82 Long term (current) use of aspirin; Z79.84 Long term (current) use of oral hypoglycemic drugs; Z79.899 Other long term (current) drug therapy; Z87.891 Personal history of nicotine dependence; Z95.0 Presence of cardiac pacemaker; Z95.5 Presence of coronary angioplasty implant and graft; Z97.4 Presence of external hearing-aid; Z88.1 Allergy status to other antibiotic agents; Z88.8 Allergy status to other drugs, medicaments and biological substances; Z88.5 Allergy status to narcotic agent; Z87.19 Personal history of other diseases of the digestive system
CPT/HCPCS: 36415; 71046; 80048; 80053; 80061; 81001; 82533; 83036; 83605; 83735; 83880; 84100; 84439; 84443; 84484; 85025; 85027; 85610; 85730; 93005; 96361; 96374; 96375; 99285